=== PATIENT | male | born 1950 | race Caucasian/White ===

== ENCOUNTER 2023-03-06 11:57 | Outpatient (RCR) | payer MEDICARE, MEDICAID, SELFPAY | END 2023-04-26 16:02 | disposition home or self-care (01) | LOC: PT 11:57 | PROVIDERS: PCP Nurse Practitioner; Visit Provider Family Medicine | DX: R26.2 Difficulty in walking, not elsewhere classified (principal) | CPT/HCPCS: 97110; 97112; 97162; 97530 ==

== ENCOUNTER 2024-02-03 14:14 | Outpatient (RCR) | payer MEDICARE, MEDICAID, SELFPAY | END 2024-03-10 16:57 | disposition home or self-care (01) | LOC: PT 14:14 | PROVIDERS: PCP Nurse Practitioner; Visit Provider Nurse Practitioner | DX: R26.2 Difficulty in walking, not elsewhere classified (principal); R26.89 Other abnormalities of gait and mobility; Z99.89 Dependence on other enabling machines and devices | CPT/HCPCS: 97110; 97112; 97162 ==

== ENCOUNTER 2024-03-02 13:28 | Outpatient (OUT) | payer MEDICARE, MEDICAID, SELFPAY | END 2024-03-02 13:29 | disposition home or self-care (01) | LOC: PST 13:29 | PROVIDERS: PCP Nurse Practitioner; Visit Provider Surgery | DX: Z01.818 Encounter for other preprocedural examination (principal); Z12.11 Encounter for screening for malignant neoplasm of colon ==

== ENCOUNTER 2024-03-11 08:44 | Day surgery (SDC) | payer MEDICARE, MEDICAID, SELFPAY ==
--- NOTE | 2024-03-11 | OP_ITS ---
OPERATION DATE: 03/11/2024 PREOPERATIVE DIAGNOSIS: Colorectal screening. POSTOPERATIVE DIAGNOSIS: Poor prep with thick brown liquid and semi-solid stool throughout the colon. PROCEDURE: Colonoscopy to proximal ascending colon. SURGEON: Gordo Mejias M.D. ANESTHESIA: Monitored anesthesia care. ESTIMATED BLOOD LOSS: Zero. INDICATIONS AND CONSENT: Patient is a 73-year-old male with multiple medical problems, presents for colorectal screening. He is on Eliquis but stopped this two days prior. Indications, risks, benefits, alternatives of proceeding with colonoscopy were explained extensively to the patient, including the risks of bleeding, colon perforation or anesthetic complications. All of his questions were answered. Informed consent was obtained. PROCEDURE: Patient brought to the operating room, placed in the left lateral decubitus position. Monitored anesthesia care was provided. Rectal exam was performed which showed no masses or blood. The scope was inserted into the anal canal. Under direct visualization, it was advanced. There was noted to be thick brown liquid stool coating the colon and in pools throughout the colon with some more solid components as well. It was able to be partially irrigated clear. We were able to advance to the ascending colon; however, due to a large amount of the liquid stool, could not adequately visualize to proceed to the cecum. It was close to the cecum. Upon withdrawal of the scope, mucosal surfaces were examined. No large masses or polyps were noted; however, due to the poor prep, certainly smaller polyps or even 6 mm likely would not be detected. There were rare sigmoid diverticula without inflammatory changes or scarring. No significant hemorrhoidal disease. The scope was then withdrawn. Patient tolerated procedure well, was sent to recovery room in good condition. Likely will require repeat colonoscopy, due to the poor prep, within the next several months. CC: ANDREW Feliciano
[2024-03-11 09:04] VITALS: BP 96/65; PULSE 77; TEMP 36.1; O2SAT 99; BMI 30.8
[2024-03-11 09:14] LABS: Glucometer 149 mg/dL (74-106)
[2024-03-11] MEDS: LACTATED RINGER'S SOLUTION 1,000 ML 50 ML IV (09:14)
[2024-03-11 10:24] VITALS: BP 117/66; PULSE 78; TEMP 36.4; O2SAT 96
[2024-03-11 10:54] VITALS: BP 143/60; PULSE 78; O2SAT 99
== END 2024-03-11 10:54 | disposition home or self-care (01) ==
PROVIDERS: PCP Nurse Practitioner; Visit Provider Surgery
PROC: (CPT G0121; principal; 2024-03-11 09:50)
DX: Z12.11 Encounter for screening for malignant neoplasm of colon (principal); I48.91 Unspecified atrial fibrillation; Z79.01 Long term (current) use of anticoagulants; E11.9 Type 2 diabetes mellitus without complications; I10 Essential (primary) hypertension; E78.5 Hyperlipidemia, unspecified; Z79.84 Long term (current) use of oral hypoglycemic drugs; Z87.891 Personal history of nicotine dependence; J44.9 Chronic obstructive pulmonary disease, unspecified; I25.10 Atherosclerotic heart disease of native coronary artery without angina pectoris; I25.2 Old myocardial infarction; Z95.5 Presence of coronary angioplasty implant and graft; M19.90 Unspecified osteoarthritis, unspecified site
CPT/HCPCS: G0121; 36415; 82948; J2371; J2704

== ENCOUNTER 2024-07-02 09:48 | Outpatient (OUT) | payer MEDICARE, MEDICAID, SELFPAY | END 2024-07-02 09:49 | disposition home or self-care (01) | LOC: LAB 09:49 | PROVIDERS: PCP Nurse Practitioner; Visit Provider Urology | DX: N40.1 Benign prostatic hyperplasia with lower urinary tract symptoms (principal) | CPT/HCPCS: 36415; 84153 ==

== ENCOUNTER 2024-07-23 15:23 | Emergency (ER) | payer MEDICARE, MEDICAID, SELFPAY ==
[2024-07-23 15:28] VITALS: BP 151/98; PULSE 88; TEMP 36.3; O2SAT 95; BMI 29.5
[2024-07-23 15:37] VITALS: O2SAT 95
--- NOTE | 2024-07-23 15:55 | CT_ITS ---
The [address] [address] Patient Name: IBETH PAUL MRN: [id number] date: 1950 Sex: M Assigned Patient Location: ER Current Patient Location: Accession/Order Number: [id number] Exam Date: 07/23/2024 16:49 Report Date: 07/23/2024 17:30 At the request of: NADINE KIMBALL Procedure: CT abdomen pelvis w con EXAM: CT Abdomen and Pelvis With Intravenous Contrast CLINICAL INDICATION: constipation TECHNIQUE: Axial computed tomography images of the abdomen and pelvis with intravenous contrast. This CT exam was performed using one or more of the following dose reduction techniques: automated exposure control, adjustment of the mA and/or kV according to patient size, and/or use of iterative reconstruction technique. COMPARISON: No relevant prior studies available. FINDINGS: LUNG BASES: Unremarkable. No mass. No consolidation. MEDIASTINUM: Aortic valve calcification. Small sliding hiatal hernia. ABDOMEN: LIVER: Mild hepatic steatosis. GALLBLADDER AND BILE DUCTS: Unremarkable. No calcified stones. No ductal dilation. PANCREAS: Unremarkable. No mass. No ductal dilation. SPLEEN: Splenic calcifications suggestive of old healed granulomatous disease. ADRENALS: Unremarkable. No mass. KIDNEYS AND URETERS: Unremarkable. No solid mass. No hydronephrosis. STOMACH AND BOWEL: Unremarkable. No mucosal thickening. No bowel obstruction. Diverticulosis. Constipation PELVIS: APPENDIX: Normal appendix. BLADDER: Grossly unremarkable allowing for artifact REPRODUCTIVE: Prostate not well-seen due to hip artifact ABDOMEN and PELVIS: INTRAPERITONEAL SPACE: No free air. No free fluid. BONES/JOINTS: Left hip arthroplasty obscures evaluation. No acute fracture. No dislocation. SOFT TISSUES: Tiny umbilical hernia containing fat. VASCULATURE: Severe vascular calcification without aneurysm. LYMPH NODES: Unremarkable. No enlarged lymph nodes. CT/CT abdomen pelvis w con IMPRESSION: No bowel obstruction. No free air. No free fluid. Constipation. Diverticulosis. No diverticulitis. Correlation with any known colonoscopy results Changes of old healed granulomatous disease. Hepatic steatosis Electronically authenticated by: KIM WILBURN Date: 07/23/2024 17:30
--- OUTSIDE RECORDS SUMMARY | 2024-07-23 16:04 | XMS_ITS | CCD ---
Author Organization [facility] CliniSyil Care Team Providers Care Probate Paralegal Name Role Phone YOUNG, SHMUEL E Unavailable Unavailable YOUNG, SHMUEL E Unavailable Unavailable BURNS, JOAQUÍN Kee Unavailable Unavailable YOUNG, SHMUEL E Unavailable Unavailable YOUNGSHMUEL E Unavailable Unavailable BURNS, JOAQUÍN Kee Unavailable Unavailable BURNS, JOAQUÍN Kee Primary Care Physician DO Scott Lowe Attending Provider Scott Lowe Admitting Unavailable Scott Lowe Attending Unavailable NO FAMILY, PHYSICIAN Primary Care Unavailable BURNS ., DR JOAQUÍN Kee Admitting Unavailable BURNS ., DR JOAQUÍN Kee Attending Unavailable BURNS ., DR JOAQUÍN Kee Primary Care Unavailable BURNS ., DR JOAQUÍN Kee Consulting Unavailable BURNS ., DR JOAQUÍN Kee Admitting Unavailable BURNS ., DR JOAQUÍN Kee Attending Unavailable BURNS ., DR JOAQUÍN Kee Primary Care Unavailable BURNS ., DR JOAQUÍN Kee Consulting Unavailable BURNS ., DR JOAQUÍN Kee Admitting Unavailable BURNS ., DR JOAQUÍN Kee Attending Unavailable BURNS ., DR JOAQUÍN Kee Primary Care Unavailable BURNS ., DR JOAQUÍN Kee Consulting Unavailable BURNS ., DR JOAQUÍN Kee Primary Care Unavailable MARK ANTHONY, DR BERTA Jerome Admitting Unavailcharu HOPSON, DR BERTA Jerome Attending Unavailabl e MARK ANTHONY, DR BERTA Jerome Consulting UnavailDALIA Robles Consulting Unavailable BURNS ., DR JOAQUÍN Kee Primary Care Unavailable CAROLINEERETaqueria, DR OLIVER Angela Admitting Unavailable PRINCE, DR OLIVER Angela Attending Unavailable PRINCE, DR OLIVER Angela Consulting Unavailable JORGE WHEELER Consulting Unavailable NATALIA PEREZ Consulting Unavailable LYNNETTE CISNEROS Consulting Unavailable GALICIA ., DR CHRISTINE Admitting Unavailable GALICIA ., DR CHRISTINE Attending Unavailable BURNS ., DR JOAQUÍN Kee Primary Care Unavailable GALICIA ., DR CHRISTINE Consulting Unavailable Renee Chavez Primary Care Physician [phone] MADHU BYRD Attending Unavailable Burns, Joaquín E Primary Care Provider Unavailabl DENIA Espitia Referring Unavailab JOAQUÍN Kazt Primary Care Unavailable DENIA VILLA Referring Unavailab JOAQUÍN Katz Primary Care Unavailable BURNSJOAQUÍN FLORENTINO Primary Care Unavailable CHRISTOFFDENIA BURTON Referring Unavailab JOAQUÍN Katz Primary Care Unavailable CHRISTDENIA OLSON Referring Unavailab le CHRISTDENIA OLSON Referring Unavailab JOAQUÍN Katz Primary Care Unavailable Scott, Renee Dove Admitting Unavailable Scott, Renee Dove Attending Unavailable NILL, Gordo Meng Attending Unavailable Scott, Renee Dove Attending Unavailable Scott, Renee Dove Attending Unavailable Scott, Renee Dove Admitting Unavailable Scott, Renee Dove Attending Unavailable Scott, Renee Dove Referring Unavailable NILL, Gordo Meng Attending Unavailable Scott, Renee Dove Attending Unavailable Scott, Renee Dove Attending Unavailable Scott, Renee Dove Attending Unavailable Scott, Renee Dove Attending Unavailable Scott, Renee Dove Attending Unavailable GALICIA, Nanci Meng Attending Unavailable Scott, Renee Dove Referring Unavailable ChristoffersonDenia. Attending Unavaila ble NONE, XXXX Referring Unavailable MD Quan Bowling Attending Unavailable Scott, Renee Dove Admitting Unavailable Scott, Renee Dove Attending Unavailable Scott, Renee Dove Attending Unavailable Scott, Renee Dove Admitting Unavailable Scott, Renee Dove Attending Unavailable Scott, Renee L Admitting Unavailable Scott, PIANO BUILDER Renee L Admitting Unavailable Scott, PIANO BUILDER Renee Dove Attending Unavailable Scott, PIANO BUILDER Renee Dove Attending Unavailable Scott, PIANO BUILDER Renee Dove Attending Unavailable Scott, PIANO BUILDER Renee Dove Attending Unavailable Scott, PIANO BUILDER Renee Dove Attending Unavailable Scott, PIANO BUILDER Renee L Admitting Unavailable Scott, PIANO BUILDER Renee L Attending Unavailable Medications Current Medications Medication Drug Class(es) Dates Sig (Normalized) Sig (Original) amiodarone hydrochloride 200 mg oral tablet (4 sources) Antiarrhythmic Start: 02-10-2020 take 1 mg by mouth once daily amiodarone 200 mg Tab mg tab(s), Oral, Daily, Refills(s) 0 Start Date: 02/10/20 Status: Ordered amLODIPine 10 mg oral tablet (7 sources) Dihydropyridine Calcium Channel [place] Start: 12-27-2023 take 1 tablet by mouth once daily amLODIPine 10 mg Tab 10 mg = 1 tab(s), Oral, Daily, Refills(s) 0 Start Date: 12/27/23 Status: Ordered Start: 01-04-2023 take 1 tablet by vear th once daily amLODIPine 10 mg Tab 10 mg = 1 tab(s), Oral, Daily, Refills(s) 0 Start Date: 01/04/23 Status: Ordered apixaban 5 mg oral tablet (15 sources) Factor Xa Inhibitor Start: 03-17-2024 take 1 tablet by mouth twice daily Eliquis 5 mg oral tablet 5 mg = 1 tab(s), Oral, BID, # 180 tab(s), Refills(s) 4, [facility]acy: [id number], 183, cm, 02/04/24 14:23:00 EDT, Height/Length Dosing, 109, kg, 02/04/24 14:23:00 EDT, Weight Dosing Start Date: 03/17/24 Status: Ordered Start: 02-10-2020 End: 02-06-2024 take 1 tablet by mouth twice daily Eliquis 5 mg oral tablet 5 mg = 1 tab(s), Oral, BID, X 90 day(s), # 180 tab(s), Refills(s) 3, Pharmacy: [facility] #[id number], 184.5, cm, 02/11/23 15:18:00 EDT, Height/Length Dosing, 107.3, kg, 02/11/23 15:18:00 EDT, Weight Dosing Start Date: 02/11/23 Stop Date: 02/06/24 Status: Ordered Aspirin (4 sources) Platelet Aggregation Inhibitor, Nonsteroidal Anti-inflammatory Drug Start: 02-10-2020 aspirin Refills(s ) 0 Start Date: 02/10/20 Status: Ordered take 1 tablet by mouth once izzy y aspirin 81 MG tablet Take 81 mg by mouth daily 0 Active bumetanide 1 mg oral tablet (19 sources) Loop Diuretic Start: 02-10-2020 take 1 tablet by mouth twice daily at breakfast bumetanide 1 mg Tab See Instructions, take 1 tablet by mouth twice a day with breakfast and LUNCH, # 180 tab(s), Refills(s) 3, Pharmacy: [facility], 183, cm, 04/30/24 14:19:00 EDT, Height/Length Dosing, 115.2, kg, 04/30/24 14:19:00 EDT, Weight Dosing Start Date: 06/05/24 Status: Ordered Start: 02-10-2020 take 1 mg by mouth at breakfas t bumetanide See Instructions, 1 mg Oral with breakfast and lunch, Refills(s) 0 Start Date: 02/10/20 Status: Ordered Start: 02-10-2020 bumetanide Lavinia ly, Refills(s) 0 Start Date: 02/10/20 Status: Ordered dapagliflozin 5 mg oral tablet (15 sources) Sodium-Glucose Cotransporter 2 Inhibitor Start: 01-06-2024 take 1 tablet by mouth once daily Farxiga 5 mg oral tablet See Instructions, take 1 tablet by mouth once daily, # 90 EA, Refills(s) 3, Pharmacy: [facility], 183, cm, 04/30/24 14:19:00 EDT, Height/Length Dosing, 115.2, kg, 04/30/24 14:19:00 EDT, Weight Dosing Start Date: 06/05/24 Status: Ordered Start: 01-04-2023 take 1 tablet by vera once daily dapagliflozin 5 mg oral tablet 5 mg = 1 tab(s), Oral, Daily, Refills(s) 0 Start Date: 01/04/23 Status: Ordered gabapentin 100 mg oral capsule (15 sources) Anti-epileptic Agent Start: 06-05-2024 take 1 capsule by mouth three times daily gabapentin 100 mg Cap See Instructions, take 1 capsule by mouth three times a day, # 90 caplet(s), Refills(s) 5, Pharmacy: [facility], 183, cm, 04/30/24 14:19:00 EDT, Height/Length Dosing, 115.2, kg, 04/30/24 14:19:00 EDT, Weight Dosing Start Date: 06/05/24 Status: Ordered Start: 01-06-2024 take 1 capsule by mo [facility] three times daily gabapentin 100 mg Cap See Instructions, take 1 capsule by mouth three times a day, # 90 caplet(s), Refills(s) 5, [facility]acy: [facility] #[id number], 183, cm, 01/06/24 14:38:00 EDT, Height/Length Dosing, 113.5, kg, 01/06/24 14:38:00 EDT, Weight Dosing Start Date: 01/06/24 Status: Ordered Start: 08-21-2023 take 1 capsule by mo ut three times daily gabapentin 100 mg Cap 100 mg = 1 cap(s), Oral, TID, # 90 cap(s), Refills(s) 0, Pharmacy: [facility] #[id number], 188, cm, 07/05/23 11:18:00 EDT, Height/Length Dosing, 116, kg, 07/05/23 11:18:00 EDT, Weight Dosing Start Date: 08/21/23 Status: Ordered Start: 02-10-2020 take 1 mg by mouth t hree times daily gabapentin 100 mg Cap mg cap(s), Oral, TID, Refills(s) 0 Start Date: 02/10/20 Status: Ordered take 1 capsule by [facility] once daily gabapentin (NEURONTIN) 100 MG capsule Take 100 mg by mouth daily 0 Active Handicap Placard (11 sources) Start: 02-12-[address] Handicap Placard, See Instructions, 1 EA, 0, Greater than 5 years, Supply Start Date: 02/12/23 Status: Ordered 3 ml insulin glargine 100 unt/ml pen injector (18 sources) Insulin Analog Start: 06-05-2024 Basaglar KwikP en 100 units/mL subcutaneous solution See Instructions, inject 20 units subcutaneously twice a day, # 15 mL, Refills(s) 11, Pharmacy: [facility], 183, cm, 04/30/24 14:19:00 EDT, Height/Length Dosing, 115.2, kg, 04/30/24 14:19:00 EDT, Weight Dosing Start Date: 06/05/24 Status: Ordered Start: 01-06-2024 Basaglar KwikP en 100 units/mL subcutaneous solution See Instructions, inject 20 units subcutaneously twice a day, # 15 mL, Refills(s) 11, [id number], 183, cm, 01/06/24 14:38:00 EDT, Height/Length Dosing, 113.5, kg, 01/06/24 14:38:00 EDT, Weight Dosing Start Date: 01/06/24 Status: Ordered Start: 08-21-2023 Basaglar KwikP en 100 units/mL subcutaneous solution 20 unit(s), SubCutaneous, BID, # 15 mL, Refills(s) 0, [facility][id number], 188, cm, 07/05/23 11:18:00 EDT, Height/Length Dosing, 116, kg, 07/05/23 11:18:00 EDT, Weight Dosing Start Date: 08/21/23 Status: Ordered Start: 01-04-2023 Basaglar KwikP en 100 units/mL subcutaneous solution 20 unit(s), SubCutaneous, BID, Refills(s) 0 Start Date: 01/04/23 Status: Ordered insulin glargine (LANTUS) 100 UNIT/ML injection vial Inject 30 Units into the skin daily 0 Active lisinopril 2.5 mg oral tablet (6 sources) Angiotensin Converting Enzyme Inhibitor Start: 06-05-2024 take 1 tablet by mouth once daily lisinopril 2.5 mg Tab 2.5 mg = 1 tab(s), Oral, Daily, # 30 tab(s), Refills(s) 6, Pharmacy: [facility], 183, cm, 04/30/24 14:19:00 EDT, Height/Length Dosing, 115.2, kg, 04/30/24 14:19:00 EDT, Weight Dosing Start Date: 06/05/24 Status: Ordered Start: 12-27-2023 take 1 tablet by vera th once daily lisinopril 2.5 mg Tab 2.5 mg = 1 tab(s), Oral, Daily, # 30 tab(s), Refills(s) 6, [facility] #[id number], 188, cm, 12/27/23 8:52:00 EDT, Height/Length Dosing, 115.1, kg, 12/27/23 8:52:00 EDT, Weight Dosing Start Date: 12/27/23 Status: Ordered Losartan (1 source) Angiotensin 2 Receptor [place] Start: 02-10-2020 losartan Oral, Daily, Refills(s) 0 Start Date: 02/10/20 Status: Ordered metFORMIN hydrochloride 500 mg oral tablet (11 sources) Biguanide Start: 06-08-2024 End: 06-08-2025 take 1 tablet by mouth three times daily metformin 500 mg Tab 500 mg = 1 tab(s), Oral, TID, # 270 tab(s), Refills(s) 1, Pharmacy: [facility], 183, cm, 04/30/24 14:19:00 EDT, Height/Length Dosing, 115.2, kg, 04/30/24 14:19:00 EDT, Weight Dosing Start Date: 06/08/24 Stop Date: 06/08/25 Status: Ordered Start: 04-27-2024 take 1 tablet by vera three times daily metformin 500 mg Tab 500 mg = 1 tab(s), Oral, TID, # 270 tab(s), Refills(s) 0, Pharmacy: [facility], 183, cm, 04/02/24 14:16:00 EDT, Height/Length Dosing, 114.2, kg, 04/02/24 14:16:00 EDT, Weight Dosing Start Date: 04/27/24 Status: Ordered Start: 02-11-2023 take 1 tablet by [facility] three times daily metformin 500 mg Tab 500 mg = 1 tab(s), Oral, TID, Refills(s) 0 Start Date: 02/11/23 Status: Ordered 24 hr metoprolol succinate 50 mg extended release oral tablet (15 sources) beta-Adrenergic [place] Start: 02-10-2020 End: 05-31-2025 take 1 tablet by mouth once daily metoprolol succinate 50 mg ER Tab 50 mg = 1 tab(s), Oral, Daily, X 90 day(s), # 90 tab(s), Refills(s) 3, Pharmacy: [facility], 183, cm, 04/30/24 14:19:00 EDT, Height/Length Dosing, 115.2, kg, 04/30/24 14:19:00 EDT, Weight Dosing Start Date: 06/05/24 Stop Date: 05/31/25 Status: Ordered polyethylene glycol 3350 27423 mg powder for oral solution (2 sources) Osmotic Laxative Start: 04-30-2024 take 17 g by mouth once daily Miralax 3350 17 gram packet 17 gm, Oral, Daily, # 255 gm, Refills(s) 1, Pharmacy: [facility], 183, cm, 04/30/24 14:19:00 EDT, Height/Length Dosing, 115.2, kg, 04/30/24 14:19:00 EDT, Weight Dosing Start Date: 04/30/24 Status: Ordered Completed/Discontinued Medications Medication Drug Class(es) Dates Sig (Normalized) Sig (Original) atorvastatin 40 mg oral tablet (15 sources) HMG-CoA Reductase Inhibitor Start: 06-05-2024 take 1 tablet by mouth once daily at bedtime atorvastatin 40 mg Tab 40 mg = 1 tab(s), Oral, Daily, take 1 tablet by mouth at bedtime, # 90 tab(s), Refills(s) 3, Pharmacy: [facility], 183, cm, 04/30/24 14:19:00 EDT, Height/Length Dosing, 115.2, kg, 04/30/24 14:19:00 EDT, Weight Dosing Start Date: 06/05/24 Status: Ordered Start: 01-06-2024 take 1 tablet by vera th once daily at bedtime atorvastatin 40 mg Tab 40 mg = 1 tab(s), Oral, Daily, take 1 tablet by mouth at bedtime, # 90 tab(s), Refills(s) 3, [facility]acy: [facility] #[id number], 183, cm, 01/06/24 14:38:00 EDT, Height/Length Dosing, 113.5, kg, 01/06/24 14:38:00 EDT, Weight Dosing Start Date: 01/06/24 Status: Ordered Start: 02-10-2020 take 40 mg by mouth once daily atorvastatin 40 mg, Oral, Daily, Refills(s) 0 Start Date: 02/10/20 Status: Ordered Start: 02-10-2020 atorvastatin O ral, Daily, Refills(s) 0 Start Date: 02/10/20 Status: Ordered blood glucose monitor (6 sources) Start: 05-14-2024 blood glucose monitor blood glucose monitor, See Instructions, 1 EA, 0, check Blood sugar 4 times a day, [facility], Supply, 183, cm, 04/30/24 14:19:00 EDT, Height/Length Dosing, 115.2, kg, 04/30/24 14:19:00 EDT, Weight Dosing Start Date: 05/14/24 Status: Ordered Start: 03-04-2024 blood glucose monitor blood glucose monitor, See Instructions, 1 EA, 0, check Blood sugar 4 times a day, [facility] #[id number], Supply, 183, cm, 02/04/24 14:23:00 EDT, Height/Length Dosing, 109, kg, 02/04/24 14:23:00 EDT, Weight Dosing Start Date: 03/04/24 Status: Ordered Start: 01-06-2024 blood glucose monitor blood glucose monitor, See Instructions, 1 EA, 0, check Blood sugar 4 times a day, [facility], Supply, 183, cm, 01/06/24 14:38:00 EDT, Height/Length Dosing, 113.5, kg, 01/06/24 14:38:00 EDT, Weight Dosing Start Date: 01/06/24 Status: Ordered Start: 10-18-2023 blood glucose monitor blood glucose monitor, See Instructions, 1 EA, 0, check Blood sugar 4 times a day, [facility] #[id number], Supply, 188, cm, 10/14/23 13:27:00 EST, Height/Length Dosing, 114.7, kg, 10/14/23 13:27:00 EST, Weight Dosing Start Date: 10/18/23 Status: Ordered DM shoes (8 sources) Start: 08-06-2023 DM shoes DM sh oes, See Instructions, 1 EA, 0, DM shoes, Supply Start Date: 08/06/23 Status: Ordered Misc DME Prescription (8 sources) Start: 06-05-2024 Misc DME Presc ription Misc DME Prescription, See Instructions, 200 pen needle(s), 1, BD pen needles to use bid for insulin injections Dx E11.8, [facility], Supply, 183, cm, 04/30/24 14:19:00 EDT, Height/Length Dosing, 115.2, kg, 04/30/24 14:19:00 EDT, Weight Dosing Start Date: 06/05/24 Status: Ordered Start: 09-10-2023 Misc DME Presc ription Misc DME Prescription, See Instructions, 200 pen needle(s), 1, BD pen needles to use bid for insulin injections Dx E11.8, [facility] #[id number], Supply, 188, cm, 07/05/23 11:18:00 EDT, Height/Length Dosing, 116, kg, 07/05/23 11:18:00 EDT, Weight Dosing Start Date: 09/10/23 Status: Ordered regadenoson (LEXISCAN) injec tion 0.4 mg (1 source) Start: 12-12-2023 End: 12-12-2023 regadenoson (LEXISCAN) injection 0.4 mg 5 ml sodium chloride 9 mg/ml injection (1 source) Start: 12-12-2023 End: 12-12-2023 sodium chloride flush 0.9 % injection 5-40 mL Problems Active Problems Problem Classification Problem Date Documented Da te Episodic/Chronic Acute myocardial infarction (12 sources) Acute myocardial infarction 02-10-2020 Chronic Administrative/social admission (8 sources) Reduced mobility 01-08-2024 Episodic Calculus of urinary tract (12 sources) History of calculus of kidney 02-10-2020 Episodic Cardiac dysrhythmias (13 sources) Atrial fibrillation; Translations: [Unspecified atrial fibrillation] Onset: 12-27-2023 02-10-2020 Chronic Cataract (2 sources) Cataract; Translations: [AGE RELATED NUCLEAR CATARACT] Onset: 08-12-2017 Chronic obstructive pulmonary disease and bronchiectasis (13 sources) Chronic obstructive lung disease; Translations: [Chronic obstructive pulmonary disease, unspecified] Onset: 01-24-2022 02-10-2020 Chronic Congestive heart failure; nonhypertensive (1 source) Heart failure, unspecified; Translations: [HEART FAILURE UNSPECIFIED] Onset: 01-24-2022 Chronic Coronary atherosclerosis and other heart disease (1 source) Atherosclerotic heart disease of [place] coronary artery without angina pectoris; Translations: [Atherosclerotic heart disease of [place] coronary artery without angina pectoris] Onset: 12-12-2023 Chronic Diabetes mellitus with complications (8 sources) Type 1 diabetes mellitus with unspecified complications; Translations: [Type 1 diabetes mellitus with diabetic polyneuropathy] Onset: 07-24-2022 Chronic Diabetes mellitus without complication (9 sources) Type 2 diabetes mellitus without complications; Translations: [Type 1 diabetes mellitus] Onset: 01-24-2022 10-14-2023 Chronic Diabetes mellitus without complication (20 sources) Glycosuria; Translations: [Hyperglycemia] 02-12-2020 Episodic Disorders of lipid metabolism (12 sources) Hyperlipidemia; Translations: [Hyperlipidemia, unspecified] Onset: 12-27-2023 02-11-2023 Chronic Essential hypertension (20 sources) Hypertensive disorder; Translations: [Essential (primary) hypertension] Onset: 05-03-2022 02-10-2020 Chronic Genitourinary symptoms and ill-defined conditions (20 sources) Nocturia; Translations: [Nocturia] Onset: 04-06-2022 Episodic Hyperplasia of prostate (20 sources) Benign prostatic hypertrophy with outflow obstruction; Translations: [Benign prostatic hyperplasia with lower urinary tract symptoms] Onset: 03-26-2022 Chronic Other aftercare (1 source) Long-term current use of anticoagulant; Translations: [snf (current) use of anticoagulants] Onset: 04-06-2022 Episodic Other diseases of kidney and ureters (12 sources) Hydronephrosis 02-10-2020 Episodic Other gastrointestinal disorders (8 sources) Altered bowel function 10-14-2023 Episodic Other gastrointestinal disorders (2 sources) Constipation 04-30-2024 Episodic Other nervous system disorders (4 sources) Difficulty walking 01-09-2024 Chronic Other nervous system disorders (2 sources) Neuropathy of lower limb 04-02-2024 Chronic Other nutritional; endocrine; and metabolic disorders (1 source) Obesity, unspecified; Translations: [OBESITY UNSPECIFIED] Onset: 01-24-2022 Chronic Other nutritional; endocrine; and metabolic disorders (1 source) Body mass index (BMI) 30.0-30.9, adult; Translations: [BODY MASS INDEX BMI 30.0-30.9 ADULT] Onset: 01-24-2022 Chronic Other nutritional; endocrine; and metabolic disorders (1 source) Obese class I; Translations: [Body mass index (BMI) 32.0-32.9, adult] Onset: 12-27-2023 Chronic Other nutritional; endocrine; and metabolic disorders (4 sources) Body mass index 30+ - obesity 12-30-2023 Chronic Other nutritional; endocrine; and metabolic disorders (3 sources) Obesity caused by energy imbalance 02-04-2024 Chronic Other screening for suspected conditions (not mental disorders or infectious disease) (3 sources) Encounter for screening for malignant neoplasm of prostate; Translations: [Screening for malignant neoplasm done] Onset: 07-05-2023 Episodic Isabel-; endo-; and myocarditis; cardiomyopathy (except that caused by tuberculosis or sexually transmitted disease) (5 sources) Dilated cardiomyopathy; Translations: [Cardiomyopathy] Onset: 05-03-2022 Chronic Retinal detachments; defects; vascular occlusion; and retinopathy (12 sources) Age related macular degeneration 02-10-2020 Chronic Screening and history of mental health and substance abuse codes (1 source) H/O: Disorder; Translations: [Personal history of nicotine dependence] Onset: 12-27-2023 Episodic Substance-related disorders (1 source) Tobacco dependence, continuous 07-03-2024 Chronic Unclassified (12 sources) Drug therapy finding 04-06-2022 Unclassified (1 source) Unspecified open wound of left ear, initial encounter; Translations: [Unspecified open wound of left ear, initial encounter] Onset: 06-25-2022 Unclassified (16 sources) Patient encounter status 07-05-2023 Unclassified (4 sources) Able to mobilize using mobility aids 01-09-2024 Past or Other Problems Problem Classification Problem Date Documented Da te Episodic/Chronic Cataract (6 sources) Nuclear sclerotic cataract; Translations: [Age-related nuclear cataract, left eye] Onset: 08-11-2017 Resolved: 08-21-2017 08-12-2017 Chronic Other aftercare (1 source) Other detention (current) drug therapy; Translations: [[facility]IV[facility] CURRENT DRUG THERAPY] Onset: 01-24-2022 Episodic Other aftercare (1 source) snf (current) use of aspirin; Translations: [SENIOR LIVING CURRENT USE OF ASPIRIN] Onset: 01-24-2022 Episodic Other aftercare (1 source) snf (current) use of anticoagulants; Translations: [SENIOR LIVING CURRNT USE ANTICOAGULANTS] Onset: 01-24-2022 Episodic Other connective tissue disease (4 sources) Pain in left foot; Translations: [PAIN IN LEFT FOOT] Onset: 01-23-2022 Episodic Other connective tissue disease (1 source) Pain in right foot; Translations: [PAIN IN RIGHT FOOT] Onset: 01-24-2022 Episodic Other male genital disorders (1 source) Disorder of prostate, unspecified; Translations: [DISORDER OF PROSTATE UNSPECIFIED] Onset: 05-03-2022 Episodic Unclassified (12 sources) Chronic emphysema (morphologic abnormality) 02-10-2020 Results Test Name Value Interpretation Reference Range Facil ity Ambulatory Visit Summaryon 1 09-05-2023 Ambulatory Visit Summary Ambulatory Visit Summary BRAXTON VILLASENOR :1950 Visit Date:07/06/2024 Ambulatory Visit Instructions Your Diagnosis BPH with urinary obstruction Screening PSA (prostate specific antigen) Your Care Team Attending Physician - Nanci GALICIA MD Primary Care Physician - Renee Renae This Is Your Medications List Contact prescribing physician if questions or concerns Misc Prescription (DM shoes) Misc Prescription (Handicap Placard) Misc Prescription (Misc DME Prescription) Misc Prescription (blood glucose monitor) Misc Prescription (glucose test strips) Misc Prescription (lancets) apixaban (Eliquis 5 mg oral tablet) atorvastatin (atorvastatin 40 mg Tab) bumetanide bumetanide (bumetanide 1 mg Tab) dapagliflozin (Farxiga 5 mg oral tablet) dapagliflozin (Farxiga 5 mg oral tablet) gabapentin (gabapentin 100 mg Cap) insulin glargine (Basaglar KwikPen 100 units/mL subcutaneous solution) insulin glargine (Basaglar KwikPen 100 units/mL subcutaneous solution) lisinopril (lisinopril 2.5 mg Tab) metformin (metformin 500 mg Tab) metoprolol (metoprolol succinate 50 mg ER Tab) polyethylene glycol 3350 (Miralax 3350 17 gram packet) Procedures Performed Excision of multiple scrotal sebaceous cysts (09/19/2010), Cardiac catheterisation, combined right and left heart, Cataract, Hip replacement. Discharge Vitals Heart Rate (Peripheral) 89 Blood Pressure 100/70 Height 188 cm Height 74 in Weight 110 kg Weight 242 lb BMI 31.12 What to do next Scheduled Follow-Up Appointments 2023 11:30 AM EST With: Where: [address] [address]- Saturday 1:00 PM EST With: Renee Renae Where: [address] [address]- Saturday 1:00 PM EDT With: Where: [address] [address]- You Need to Schedule the Following Appointments Follow Up with GRAYSON CRAIG, OWEN Smith When: Where: [facility] [address] [place] [id number]- Medications What How Much When Why Instructions Unchanged apixaban (Eliquis 5 mg oral tablet) 1 Tablets By Mouth 2 times a day Contact prescribing physician if questions or concerns Unchanged atorvastatin (atorvastatin 40 mg Tab) 1 Tablets By Mouth Every day take 1 tablet by mouth at bedtime Contact prescribing physician if questions or concerns Unchanged bumetanide See instructions 1 mg Oral with breakfast and lunch Contact prescribing physician if questions or concerns Unchanged bumetanide (bumetanide 1 mg Tab) See instructions take 1 tablet by mouth twice a day with breakfast and LUNCH Contact prescribing physician if questions or concerns Unchanged dapagliflozin (Farxiga 5 mg oral tablet) 1 Tablets By Mouth Every day take 1 tablet by mouth once daily Contact prescribing physician if questions or concerns Unchanged dapagliflozin (Farxiga 5 mg oral tablet) See instructions take 1 tablet by mouth once daily Contact prescribing physician if questions or concerns Unchanged gabapentin (gabapentin 100 mg Cap) See instructions take 1 capsule by mouth three times a day Contact prescribing physician if questions or concerns Unchanged insulin glargine (Basaglar KwikPen 100 units/ mL subcutaneous solution) 20 Units Subcutaneous 2 times a day Contact prescribing physician if questions or concerns Unchanged insulin glargine (Basaglar KwikPen 100 units/ mL subcutaneous solution) See instructions inject 20 units subcutaneously twice a day Contact prescribing physician if questions or concerns Unchanged lisinopril (lisinopril 2.5 mg Tab) 1 Tablets By Mouth Every day Contact prescribing physician if questions or concerns Unchanged metformin (metformin 500 mg Tab) 1 Tablets By Mouth 3 times a day Contact prescribing physician if questions or concerns Unchanged metoprolol (metoprolol succinate 50 mg ER Tab) 1 Tablets By Mouth Every day Duration: 90 Days Contact prescribing physician if questions or concerns Unchanged Misc Prescription (blood glucose monitor) See instructions check Blood sugar 4 times a day Contact prescribing physician if questions or concerns Unchanged Misc Prescription (DM shoes) See instructions DM shoes Contact prescribing physician if questions or concerns Unchanged Misc Prescription (glucose test strips) See instructions check blood sugar 4 times per day E11.8 Contact prescribing physician if questions or concerns Unchanged Misc Prescription (Handicap Placard) See instructions Hypertension Hyperlipidemia Impaired ambulation BMI 31.0-31.9,adult Non-smoker Greater than 5 years Contact prescribing physician if questions or concerns Unchanged Misc Prescription (lancets) See instructions Annual visit for g (more content not included)... Normal [facility] 07-06-20 [facility] Case Information Case Priority: None Programs: -- Referral Source: [employer] Referral Reason: Disease management Case Type: Chronic Care Management Risk Score: -- Case Status: New (July 06, 2024) Date Assigned: July 06, 2024 Assigned By: Sancho Walters Date Enrolled: -- Assigned Primary Personnel: Sancho Walters Assigned Secondary Personnel: -- Case Physician: Renee Renae Problems Ongoing Able to mobilize using mobility aids Anticoagulated Atrial fibrillation BMI 32.0-32.9,adult BPH with urinary obstruction Cardiomyopathy Change in bowel function Colon cancer screening Constipation Decreased mobility Difficulty in walking Encounter for diabetic foot exam Glucosuria Hyperlipidemia Hypertension Limited mobility Neuropathy of foot Nocturia Obesity due to excess calories Screening for malignant neoplasm of colon Screening PSA (prostate specific antigen) Type 1 diabetes mellitus Urinary frequency Urinary urgency Historical Acute myocardial infarction Age related macular degeneration BPH - benign prostatic hyperplasia Chronic emphysema COPD - Chronic obstructive pulmonary disease History of kidney stone Hydronephrosis Hyperglycemia Hypertension Procedure/Surgical History Excision of multiple scrotal sebaceous cysts (09/19/2010), Cardiac catheterisation, combined right and left heart, Cataract, Hip replacement. Home Medications atorvastatin 40 mg Tab, 40 mg= 1 tab(s), Oral, Daily, 3 refills Basaglar KwikPen 100 units/mL subcutaneous solution, 20 unit(s), SubCutaneous, BID Basaglar KwikPen 100 units/mL subcutaneous solution, See Instructions, 11 refills blood glucose monitor, See Instructions bumetanide, See Instructions bumetanide 1 mg Tab, See Instructions, 3 refills DM shoes, See Instructions Eliquis 5 mg oral tablet, 5 mg= 1 tab(s), Oral, BID, 4 refills Farxiga 5 mg oral tablet, See Instructions, 3 refills Farxiga 5 mg oral tablet, 5 mg= 1 tab(s), Oral, Daily gabapentin 100 mg Cap, See Instructions, 5 refills glucose test strips, See Instructions, 11 refills Handicap Placard, See Instructions lancets, See Instructions, 11 refills lisinopril 2.5 mg Tab, 2.5 mg= 1 tab(s), Oral, Daily, 6 refills metformin 500 mg Tab, 500 mg= 1 tab(s), Oral, TID, 1 refills metoprolol succinate 50 mg ER Tab, 50 mg= 1 tab(s), Oral, Daily, 3 refills Miralax 3350 17 gram packet, 17 gm, Oral, Daily, 1 refills Misc DME Prescription, See Instructions, 1 refills Allergies No Known Allergies Social History Alcohol - Denies Alcohol Use, 12/30/2023 Never., 07/06/2024 Substance Abuse - Denies Substance Abuse, 12/30/2023 Never., 07/06/2024 Tobacco Former smoker, quit more than 30 days ago Tobacco Use:., 07/06/2024 Family History Family history is negative Screenings and Assessments 07/06/24 14:45:00 Result Name Value Comment CCM Program Enrollment Agreed to share health information w-other care team members CCM Written Consent Written consent obtained CCM Verbal Consent By Self 07/06/24 13:00:00 Result Name Value Comment HIPPA Verified Type of Contact Telephone Information Given by Self CM Preferred Spoken Language Burundian CM Preferred Written Language Burundian Preferred Communication Mode Verbal Ability to Read/Write Not able to read, Not able to write Licensing Manager Called No Cell Best Time to Visit or Contact 1-5 pm Best Day to Visit or Contact No preference Appointment Reminders Phone, Other secured messaging Learning Style Pref Patient Demonstration, Verbal explanation Learning Style Pref Parent/Guardian Demonstration, Verbal explanation Teaching Method Demonstration, Explanation Barriers to Learning Literacy Response to Current Year Incorrect Cognitive Deficit Unsure Response to Current Month Correct Response to Current Time Correct Count Backward 20 to 1 1 Error State Months in Reverse Order 1 Error Repeat Memory Phrase Correct Lives In Apartment Number in Household 1 Support System Family member(s) Primary Jewel Hole Gauger of Home Medication Self Medication Adherence Method Caregiver/Family fills pillbox Current DME at Home Yes Currently Receiving Skilled Services No Skilled Service Needs Anticipated Yes Home Barriers None Employment Status Retired Financial Issues None Sources of Income Social Security Patient Account Services Referral No Pt/CG Understand Health Plan Benefits Yes Benefits Adequate for the (more content not included)... Normal [facility] Population Health Population Health Problems Ongoing Able to mobilize using mobility aids Anticoagulated Atrial fibrillation BMI 32.0-32.9,adult BPH with urinary obstruction Cardiomyopathy Change in bowel function Colon cancer screening Constipation Decreased mobility Difficulty in walking Encounter for diabetic foot exam Glucosuria Hyperlipidemia Hypertension Limited mobility Neuropathy of foot Nocturia Obesity due to excess calories Screening for malignant neoplasm of colon Screening PSA (prostate specific antigen) Type 1 diabetes mellitus Urinary frequency Urinary urgency Historical Acute myocardial infarction Age related macular degeneration BPH - benign prostatic hyperplasia Chronic emphysema COPD - Chronic obstructive pulmonary disease History of kidney stone Hydronephrosis Hyperglycemia Hypertension Procedure/Surgical History Excision of multiple scrotal sebaceous cysts (09/19/2010), Cardiac catheterisation, combined right and left heart, Cataract, Hip replacement. Medication List atorvastatin 40 mg Tab, 40 mg= 1 tab(s), Oral, Daily, 3 refills Basaglar KwikPen 100 units/mL subcutaneous solution, 20 unit(s), SubCutaneous, BID Basaglar KwikPen 100 units/mL subcutaneous solution, See Instructions, 11 refills blood glucose monitor, See Instructions bumetanide, See Instructions bumetanide 1 mg Tab, See Instructions, 3 refills DM shoes, See Instructions Eliquis 5 mg oral tablet, 5 mg= 1 tab(s), Oral, BID, 4 refills Farxiga 5 mg oral tablet, See Instructions, 3 refills Farxiga 5 mg oral tablet, 5 mg= 1 tab(s), Oral, Daily gabapentin 100 mg Cap, See Instructions, 5 refills glucose test strips, See Instructions, 11 refills Handicap Placard, See Instructions lancets, See Instructions, 11 refills lisinopril 2.5 mg Tab, 2.5 mg= 1 tab(s), Oral, Daily, 6 refills metformin 500 mg Tab, 500 mg= 1 tab(s), Oral, TID, 1 refills metoprolol succinate 50 mg ER Tab, 50 mg= 1 tab(s), Oral, Daily, 3 refills Miralax 3350 17 gram packet, 17 gm, Oral, Daily, 1 refills Misc DME Prescription, See Instructions, 1 refills Allergies No Known Allergies Goals and Interventions Care Plan Goal: Daily Activities Are Not Prohibited Start Date: 2023 Target: - - Status: - - Barriers: - - Comments: - - Intervention Frequency Status 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 Discuss Physical Health Concerns with Provider - - Not done - - Plan Action for Physical Health Needs - - Not done - - Goal: Prevent complications related to diabetes Start Date: 2023 Target: - - Status: Not met Barriers: - - Comments: - - Intervention Frequency Status 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 Pt could not provide urine sample today. Previous dx of BPH with urinary obstruction, nocturia, urinary frequency and anticoagulated. PSA: 02/22/21 - 0.51 03/26/22 - 0.49 02/12/23 - 0.4 07/01/24 - 0.4 Dysuria: denies Incomplete bladder emptying: denies Hematuria: denies Frequency: every hour Urgency: denies Nocturia: yes, multiple times - says unsure exactly how many times Stream: good stream Leaking:denies Post void dripping: denies Wearing pads/ Depends: denies Urge incontinence:denies Stress incontinence:denies Incontinence without Sensory Awareness:denies Abdominal pain:denies Flank pain:denies Sexual complaints: denies History of Present Illness Tests reviewed: UA, PSA I have reviewed the previous health record information and history for this patient from Dr. Galicia. I have reviewed and verified the staff HPI to be accurate for this encounter. Review of Systems PHQ Score Initial Depression Screen Score: 2 SCORE ROS - Provider Constitutional: denies weight loss, denies hot flashes. Eyes: denies eye problems. Gastrointestinal: denies nausea, denies vomiting. Cardiovascular: denies chest pain or angina. Integumentary: no dryness Musculoskeletal: denies musculoskeletal symptoms. ENMT: denies otolaryngeal symptoms. Respiratory: no shortness of breath. Heme/Lymph: denies easy bleeding tendency, denies easy bruising tendency. Psychiatric: no confusion, no anxiety. Genitourinary: See HPI. Physical Exam Vitals & Measurements HR: 89(Peripheral) BP: 100/70 HT: 74 in HT: 188 cm WT: 110 kg WT: 242 lb BMI: 31.12 General Appearance: alert, no distress, well nourished, well developed male. Assessment/Plan 1. BPH with urinary obstruction (N40.1: Benign prostatic hyperplasia with lower urinary tract symptoms) Pt unable to provide urine sample today. Did not take water pill yet this morning so he wouldn't have to void on the way here. IPSS not completed. Not taking any prostate or bladder meds. No difficulties with urination. Denies gross hematuria, burning, UTI since prior OV. Frequency due to water pill. 2. Screening PSA (prostate specific antigen) (Z12.5: Encounter for screening for malignant neoplasm of prostate) PSA: 02/22/21 - 0.51 03/26/22 - 0.49 02/12/23 - 0.40 07/01/24 - 0.40 PSA stable. Discussed having PCP monitor PSA annually so pt can follow with this office prn. Pt is amenable. Follow up PRN. Pt understands and agrees with plan. -Cont annual PSA monitoring with PCP. Follow-up With When Contact Information GRAYSON CRAIG, Nanci Meng, [facility] [address] , [place] [id number]- Additional Instructions: PRN Patient Education Benign Prostatic Hyperplasia ITanika, personally scribed for Dr. Galicia on 07/06/2024 11:45:57. . Documentation recorded by the scribe, Tanika Granados, accurately reflects the services(s) I performed and decisions made by me. Authenticated by Dr. Galicia on 07/06/2024 11:53:59. Problem List/Past Medical History Ongoing Able to mobilize using mobility aids Anticoagulated Atrial fibrillation BMI 32.0-32.9,adult BPH with urinary obstruction Cardiomyopathy Change in bowel function Colon cancer screening Constipation Decreased mobility Difficulty in walking Encounter for diabetic foot exam Glucosuria Hyperlipidemia Hypertension Limited mobility Neuropathy of foot Nocturia Obesity due to excess calories Screening for malignant neoplasm of colon Screening PSA (prostate specific antigen) Type 1 diabetes mellitus Urinary frequency Urinary urgency Historical Acute myocardial infarction Age related macular degeneration BPH - benign prostatic hyperplasia Chronic emphysema COPD - Chronic obstructive pulmonary disease History of kidney stone Hydronephrosis Hyperglycemia Hypertension Procedure/Surgical History Excision of multiple scrotal sebaceous cysts (09/19/2010), Cardiac catheterisation, combined right and left heart, Cataract, Hip replacement. Medications atorvastatin 40 mg Tab, 40 mg= 1 tab(s), Oral, Daily, 3 refills Basaglar KwikPen 100 units/mL subcutaneous solution, 20 unit(s), SubCutaneous, BID Basaglar KwikPen 100 units/mL subcutaneous solution, See Instructions, 11 refills blood glucose monitor, See Instructions bumetanide, See Instructions bumetanide 1 mg Tab, See Instructions, 3 refills DM shoes, See Instructions Eliquis 5 mg oral tablet, 5 mg= 1 tab(s), Oral, BID, 4 refills Farxiga 5 mg oral tablet, See Instructions, 3 refills Farxiga 5 mg oral tablet, 5 mg= 1 tab(s), Oral, Daily gabapentin 100 mg Cap, See Instructions, 5 refills glucose test strips, See Instructions, 11 refills Handicap Placard, See Instructions lancets, See Instructions, 11 refills lisin (more content not included)... Normal [facility] Comment on above: Result Comment: Elec tronically Signed By: Nanci GALICIA MD\.br\Date and Time Signed: 07/06/24 11:54 EST\.br\Electronically Co-Signed By: Tanika Granados\.br\Date and Time Co-Signed: 07/06/24 11:46 EST\.br\Electronically Co-Signed By: Tanika Granados\.br\Date and Time Co-Signed: 07/06/24 11:46 EST Family Medicine Office/Clini c Noteon 07-03-2024 Family Medicine Office/Clinic Note Family Medicine Office/Clinic Note [facility] Staff Braxton is a 73 year old male presenting with having bowel issues Onset: Started months ago Explained how to use MiraLAX- he would take it one day and doesn't take it for a couple days.. he states this makes him sick to his stomach and can't get off the toilet Sister was wondering if they could get HH to help with him to help with meds, when they go over there he always has pills laying around and not sure what he is taking Cologuard has been ordered but not done yet History of Present Illness pt presents today to discuss worsening bowel issues Review of Systems PHQ Score Initial Depression Screen Score: 0 SCORE Physical Exam Vitals & Measurements T: 35.9 ???C(Oral) HR: 78(Peripheral) RR: 18 BP: 132/88 SpO2: 99% HT: 72 in HT: 183.0 cm WT: 116.7 kg WT: 256.74 lb BMI: 34.85 General: alert, no acute distress ENMT: oral mucosa moist, no pharyngeal erythema or exudate Cardiovascular: regular rate and rhythm, normal peripheral perfusion Respiratory: Lungs CTA, respirations non labored Extremities: no deformity, no trauma Neurological: oriented x 4, LOC appropriate for age, CN II-XII intact, motor strength equal & normal bilaterally, speech normal Assessment/Plan 1. Change in bowel function (R19.8: Other specified symptoms and signs involving the digestive system and abdomen) pt states he will get backed up with stool for a few days, then he will have diarrhea for a couple days straight. he attempted to have colonoscopy months ago but was not prepped enough. is requesting referral to Terry STARK for further work up. pt is not taking miralax anymore. pt gets very tearful and says I'm afraid to even leave my house because I can't make it to the bathroom. His sister is very concerned and asks if there is any way they could get help with him at home. Sancho [facility] nurse was informed and she went into room to discuss what she can do to help. All questions answered. RTC 1 month. will need to check HGBA1C then Ordered: [facility] [place] Ambulatory Referral 2. Former smoker (Z87.891: Personal history of nicotine dependence) continue not smoking Ordered: Body Mass Index (BMI) documented 3008F Current tobacco non-user 1036F Depression Screening Negative 3352F [facility] [place] Ambulatory Referral Influenza immunization status assessed 1030F Most recent diastolic blood pressure 80-89 mm Hg 3079F Patient screen for fall risk: no falls in last year or 1 fall with no injury in last year 1101F Systolic BP 130-139 mm Hg (Most Recent) 3075F 3. BMI 34.0-34.9,adult (Z68.34: Body mass index [BMI] 34.0-34.9, adult) BMI education Ordered: Body Mass Index (BMI) documented 3008F Current tobacco non-user 1036F Depression Screening Negative 3352F [facility] [place] Ambulatory Referral Influenza immunization status assessed 1030F Most recent diastolic blood pressure 80-89 mm Hg 3079F Patient screen for fall risk: no falls in last year or 1 fall with no injury in last year 1101F Systolic BP 130-139 mm Hg (Most Recent) 3075F 4. Exogenous obesity (E66.09: Other obesity due to excess calories) Ordered: Body Mass Index (BMI) documented 3008F Current tobacco non-user 1036F Depression Screening Negative 3352F [facility] External Ambulatory Referral Influenza immunization status assessed 1030F Most recent diastolic blood pressure 80-89 mm Hg 3079F Patient screen for fall risk: no falls in last year or 1 fall with no injury in last year 1101F Systolic BP 130-139 mm Hg (Most Recent) 3075F Follow-up No qualifying data available Problem List/Past Medical History Ongoing Able to mobilize using mobility aids Anticoagulated Atrial fibrillation BMI 32.0-32.9,adult BPH with urinary obstruction Cardiomyopathy Change in bowel function Colon cancer screening Constipation Decreased mobility Difficulty in walking Encounter for diabetic foot exam Glucosuria Hyperlipidemia Hypertension Limited mobility Neuropathy of foot Nocturia Obesity due to excess calories Screening for malignant neoplasm of colon Screening PSA (prostate specific antigen) Type 1 diabetes mellitus Urinary frequency Urinary urgency Historical Acute myocardial infarction Age related macular degeneration BPH - benign prostatic hyperplasia Chronic emphysema COPD - Chronic obstructive pulmonary disease History of kidney stone Hydronephrosis Hyperglycemia Hypertension Procedure/Surgical History Excision of multiple scrotal sebaceous cysts (09/19/2010), Cardiac catheterisation, combined right and left heart, Cataract, Hip replacement. Medications atorvastatin 40 mg Tab, 40 mg= 1 tab(s), Oral, Daily, 3 refills Basaglar KwikPen 100 units/mL subcutaneous solution, 20 unit(s), SubCutaneous, BID Basaglar KwikPen 100 units/mL subcutaneous solution, See Instructions, 11 refills blood glucose monitor, See Instructions bumetanide, See Instructions bumetanide 1 mg Tab, Se (more content not included)... Normal [facility] Comment on above: Result Comment: Elec tronically Signed By: Renee Renae\.br\Date and Time Signed: 07/03/24 15:13 EDT Reminderson 05-05-2024 Reminders Reminders From: Renee Renae To: [facility] - Clinical; Sent: 05/05/2024 09:48:59 EDT Show up: 05/05/2024 09:48:00 EDT Subject: Ambulatory Reminder Due Date/Time: 05/06/2024 09:47:00 EDT HGBA1C went from 5.9 to 7.2. Was he able to get his glucose monitor ? If not, I will try to send to pharmacy again. He needs to start watching sugar and carb intake. Results: Date Result Name Ind Value Ref Range 04/30/2024 14:46 Hgb A1C % ((H)) 7.2 % ( - <=5.9) From: Pat Kay LPN ([facility] - Clinical) To: Renee Renae; Sent: 05/05/2024 11:28:07 EDT Show up: 05/05/2024 11:25:00 EDT Subject: RE: Ambulatory Reminder Spoke with Rica and no he's not gotten his glucose monitor, was sent couple months ago to [facility] and they are now closed, so [facility] [place]. His sister says that Pro insists he knows when his sugars up and she says it's obvious he doesn't, she will discuss his results and instructions with him. Normal [facility] CHEMISTRYOrdered By: Art nicole on 04-30-2024 HbA1c (Bld) [Mass fraction] 7.2 % High <=5.9% [facility] ChemAutoSS Family Medicine Office/Clini c Noteon 04-30-2024 Family Medicine Office/Clinic Note Family Medicine Office/Clinic Note HPI Staff Pt presents today due to constipation Colonoscopy a month ago (Incomplete) OTC- last night, and is no longer constipated History of Present Illness pt presents today c/o consitpation Review of Systems PHQ Score Initial Depression Screen Score: 0 SCORE Physical Exam Vitals & Measurements T: 37.4 ?C(Temporal Artery) HR: 76(Peripheral) RR: 18 BP: 110/78 SpO2: 95% HT: 72 in HT: 183.0 cm WT: 115.2 kg WT: 253.44 lb BMI: 34.4 General: alert, no acute distress ENMT: oral mucosa moist, no pharyngeal erythema or exudate Cardiovascular: regular rate and rhythm, normal peripheral perfusion Respiratory: Lungs CTA, respirations non labored Extremities: no deformity, no trauma Neurological: oriented x 4, LOC appropriate for age, CN II-XII intact, motor strength equal & normal bilaterally, speech normal Assessment/Plan 1. Type 1 diabetes mellitus (E10.9: Type 1 diabetes mellitus without complications) will check HGBA1C today. pt has still not been able to get a glucose monitor. his daughter will buy one from [employer] or [employer]. Ordered: polyethylene glycol 3350, 17 gm, Oral, Daily, # 255 gm, Refills(s) 1, Pharmacy: [id number], 183, cm, 04/30/24 14:19:00 EDT, Height/Length Dosing, 115.2, kg, 04/30/24 14:19:00 EDT, Weight Dosing HgbA1c 2. Colon cancer screening (Z12.11: Encounter for screening for malignant neoplasm of colon) will order cologuard. pt had colonoscopy recently but was not completely cleaned out so they were not able to visualize everything. surgeon suggested he do cologuard and if it is abnormal they will re schedule colonoscopy. Ordered: polyethylene glycol 3350, 17 gm, Oral, Daily, # 255 gm, Refills(s) 1, Pharmacy: [id number], 183, cm, 04/30/24 14:19:00 EDT, Height/Length Dosing, 115.2, kg, 04/30/24 14:19:00 EDT, Weight Dosing HgbA1c 3. Constipation (K59.00: Constipation, unspecified) miralax ordered 4. Former smoker (Z87.891: Personal history of nicotine dependence) continue not smoking Ordered: polyethylene glycol 3350, 17 gm, Oral, Daily, # 255 gm, Refills(s) 1, Pharmacy: [id number], 183, cm, 04/30/24 14:19:00 EDT, Height/Length Dosing, 115.2, kg, 04/30/24 14:19:00 EDT, Weight Dosing HgbA1c 5. BMI 34.0-34.9,adult (Z68.34: Body mass index [BMI] 34.0-34.9, adult) BMI education Ordered: polyethylene glycol 3350, 17 gm, Oral, Daily, # 255 gm, Refills(s) 1, Pharmacy: [facility], 183, cm, 04/30/24 14:19:00 EDT, Height/Length Dosing, 115.2, kg, 04/30/24 14:19:00 EDT, Weight Dosing HgbA1c 6. Class 1 obesity due to excess calories in adult (E66.09: Other obesity due to excess calories) see above Ordered: polyethylene glycol 3350, 17 gm, Oral, Daily, # 255 gm, Refills(s) 1, Pharmacy: [facility], 183, cm, 04/30/24 14:19:00 EDT, Height/Length Dosing, 115.2, kg, 04/30/24 14:19:00 EDT, Weight Dosing HgbA1c Follow-up No qualifying data available Problem List/Past Medical History Ongoing Able to mobilize using mobility aids Anticoagulated Atrial fibrillation BMI 32.0-32.9,adult BPH with urinary obstruction Cardiomyopathy Change in bowel function Colon cancer screening Constipation Decreased mobility Difficulty in walking Encounter for diabetic foot exam Glucosuria Hyperlipidemia Hypertension Limited mobility Neuropathy of foot Nocturia Obesity due to excess calories Screening for malignant neoplasm of colon Screening PSA (prostate specific antigen) Type 1 diabetes mellitus Urinary frequency Urinary urgency Historical Acute myocardial infarction Age related macular degeneration BPH - benign prostatic hyperplasia Chronic emphysema COPD - Chronic obstructive pulmonary disease History of kidney stone Hydronephrosis Hyperglycemia Hypertension Procedure/Surgical History Excision of multiple scrotal sebaceous cysts (09/19/2010), Cardiac catheterisation, combined right and left heart, Cataract, Hip replacement. Medications atorvastatin 40 mg Tab, 40 mg= 1 tab(s), Oral, Daily, 3 refills Basaglar KwikPen 100 units/mL subcutaneous solution, 20 unit(s), SubCutaneous, BID Basaglar KwikPen 100 units/mL subcutaneous solution, See Instructions, 11 refills blood glucose monitor, See Instructions bumetanide, See Instructions bumetanide 1 mg Tab, See Instructions, 3 refills DM shoes, See Instructions Eliquis 5 mg oral tablet, 5 mg= 1 tab(s), Oral, BID, 4 refills Farxiga 5 mg oral tablet, 5 mg= 1 tab(s), Oral, Daily Farxiga 5 mg oral tablet, See Instructions, 3 refills gabapentin 100 mg Cap, See Instructions, 5 refills glucose test strips, See Instructions, 11 refills Handicap Placard, See Instructions lancets, See Instructions, 11 refills lisinopril 2.5 mg Tab, 2.5 mg= 1 tab(s), Oral, Daily, 6 refills metformin 500 mg Tab, 500 mg= 1 tab(s), Oral, TID metoprolol 50 mg ER Tab, 50 mg= 1 tab(s), Ora (more content not included)... Normal [facility] Comment on above: Result Comment: Elec tronically Signed By: Renee Renae\.j carlos\Date and Time Signed: 04/30/24 14:46 EDT [id number] 04-30-2024 HbA1c (Bld) [Mass fraction] 7.2 % High <=5.9 [facility] Comment on above: Performed By: #### [id number] #### [facility] [address] [place] [address] Ambulatory Visit Summaryon 0 04-02-2024 Ambulatory Visit Summary Ambulatory Visit Summary BRAXTON VILLASENOR :1950 Visit Date:04/02/2024 Ambulatory Visit Instructions Your Diagnosis Type 1 diabetes mellitus Neuropathy of foot Encounter for diabetic foot exam BMI 32.0-32.9,adult Former smoker Your Care Team Attending Physician - Renee Renae Primary Care Physician - Renee Renae This Is Your Medications List Misc Prescription (DM shoes) Misc Prescription (Handicap Placard) Misc Prescription (Misc DME Prescription) Misc Prescription (blood glucose monitor) Misc Prescription (glucose test strips) Misc Prescription (lancets) apixaban (Eliquis 5 mg oral tablet) atorvastatin (atorvastatin 40 mg Tab) bumetanide bumetanide (bumetanide 1 mg Tab) dapagliflozin (Farxiga 5 mg oral tablet) dapagliflozin (Farxiga 5 mg oral tablet) gabapentin (gabapentin 100 mg Cap) insulin glargine (Basaglar KwikPen 100 units/mL subcutaneous solution) insulin glargine (Basaglar KwikPen 100 units/mL subcutaneous solution) lisinopril (lisinopril 2.5 mg Tab) metformin (metformin 500 mg Tab) metoprolol (metoprolol 50 mg ER Tab) Procedures Performed Excision of multiple scrotal sebaceous cysts (09/19/2010), Cardiac catheterisation, combined right and left heart, Cataract, Hip replacement. Discharge Vitals Temperature (Temporal Artery) 36.3 ?C Heart Rate (Peripheral) 68 Respiratory Rate 20 Blood Pressure 128/82 Height 183.0 cm Height 72 in Weight 114.2 kg Weight 251.24 lb BMI 34.1 What to do next Scheduled Follow-Up Appointments Saturday 10:30 AM EST With: GRAYSON CRAIG, Nanci Meng Where: [facility] [address] [place] [address]- Saturday 1:00 PM EDT With: Where: [facility] [address] [address]- Medications What How Much When Why Instructions Unchanged apixaban (Eliquis 5 mg oral tablet) 1 Tablets By Mouth 2 times a day Unchanged atorvastatin (atorvastatin 40 mg Tab) 1 Tablets By Mouth Every day take 1 tablet by mouth at bedtime Unchanged bumetanide See instructions 1 mg Oral with breakfast and lunch Unchanged bumetanide (bumetanide 1 mg Tab) See instructions take 1 tablet by mouth twice a day with breakfast and LUNCH Unchanged dapagliflozin (Farxiga 5 mg oral tablet) 1 Tablets By Mouth Every day take 1 tablet by mouth once daily Unchanged dapagliflozin (Farxiga 5 mg oral tablet) See instructions take 1 tablet by mouth once daily Unchanged gabapentin (gabapentin 100 mg Cap) See instructions take 1 capsule by mouth three times a day Unchanged insulin glargine (Basaglar KwikPen 100 units/ mL subcutaneous solution) 20 Units Subcutaneous 2 times a day Unchanged insulin glargine (Basaglar KwikPen 100 units/ mL subcutaneous solution) See instructions inject 20 units subcutaneously twice a day Unchanged lisinopril (lisinopril 2.5 mg Tab) 1 Tablets By Mouth Every day Unchanged metformin (metformin 500 mg Tab) 1 Tablets By Mouth 3 times a day Unchanged metoprolol (metoprolol 50 mg ER Tab) 1 Tablets By Mouth Every day Duration: 90 Days Unchanged Misc Prescription (blood glucose monitor) See instructions check Blood sugar 4 times a day Unchanged Misc Prescription (DM shoes) See instructions DM shoes Unchanged Misc Prescription (glucose test strips) See instructions check blood sugar 4 times per day Unchanged Misc Prescription (Handicap Placard) See instructions Hypertension Hyperlipidemia Impaired ambulation BMI 31.0-31.9,adult Non-smoker Greater than 5 years Unchanged Misc Prescription (lancets) See instructions Annual visit for general adult medical examination with abnormal findings Type 1 diabetes mellitus BPH with urinary obstruction Anticoagulated Hyperlipidemia Hypertension Obesity due to excess calories Colon cancer screening Lung cancer screening declined by patient Screening declined by patient Screening for abdominal aortic aneurysm check blood sugar 4 times per day Unchanged Misc Prescription (Misc DME Prescription) See instructions BD pen needles to use bid for insulin injections Dx E11.8 Allergies No Known Allergies Problems Ongoing - Any problem that you are currently receiving treatment for. Able to mobilize using mobility aids Anticoagulated Atrial fibrillation BMI 32.0-32.9,adult BPH with urinary obstruction Cardiomyopathy Change in bowel function Decreased mobility Difficulty in walking Encounter for diabetic foot exam Glucosuria Hyperlipidemia Hypertension Limited mobility Neuropathy of foot Nocturia Obesity due to excess calories Screening for malignant neoplasm of colon Screening PSA (prostate specific antigen) Type 1 diabetes mellitus Urinary frequency Urinary urgency Historical - Any problem that you are no longer receiving treatment for. Acute myocardial (more content not included)... Normal [facility] Medicine Office/Clini c Noteon 04-02-2024 Family Medicine Office/Clinic Note Family Medicine Office/Clinic Note HPI Staff Braxton is a 73 year old male presenting for face to face and paperwork for diabetic shoes Do you have any of the following symptoms? Foot Exam: will need today for shoes Eye Exam: Last year Last A1C: Hgb A1C %: 5.9 % (01/15/24 12:58:00) Statin: atorvastatin 40mg History of Present Illness pt presents today to follow up on diabetes and for diabetic foot exam Review of Systems PHQ Score Initial Depression Screen Score: 0 SCORE Physical Exam Vitals & Measurements T: 36.3 ?C(Temporal Artery) HR: 68(Peripheral) RR: 20 BP: 128/82 SpO2: 94% HT: 72 in HT: 183.0 cm WT: 114.2 kg WT: 251.24 lb BMI: 34.1 General: alert, no acute distress ENMT: oral mucosa moist, no pharyngeal erythema or exudate Cardiovascular: regular rate and rhythm, normal peripheral perfusion Respiratory: Lungs CTA, respirations non labored Extremities: no deformity, no trauma Neurological: oriented x 4, LOC appropriate for age, CN II-XII intact, motor strength equal & normal bilaterally, speech normal decreased or no sensation in areas of both feet and 2 toes on left foot and one toe on right. callouses on both heels Assessment/Plan 1. Type 1 diabetes mellitus (E10.9: Type 1 diabetes mellitus without complications) last HGBA1C was 5.9. managing well. will check again in April. 2. Neuropathy of foot (G57.90: Unspecified mononeuropathy of unspecified lower limb) decreased sensation in multiple areas on both feet and toes 3. Encounter for diabetic foot exam (E11.9: Type 2 diabetes mellitus without complications) foot exam complete. all forms complete for diabetic shoes. pt would benefit from diabetic shoes. 4. BMI 32.0-32.9,adult (Z68.32: Body mass index [BMI] 32.0-32.9, adult) BMI education given 5. Former smoker (Z87.891: Personal history of nicotine dependence) continue not smoking Follow-up No qualifying data available Problem List/Past Medical History Ongoing Able to mobilize using mobility aids Anticoagulated Atrial fibrillation BMI 32.0-32.9,adult BPH with urinary obstruction Cardiomyopathy Change in bowel function Decreased mobility Difficulty in walking Encounter for diabetic foot exam Glucosuria Hyperlipidemia Hypertension Limited mobility Neuropathy of foot Nocturia Obesity due to excess calories Screening for malignant neoplasm of colon Screening PSA (prostate specific antigen) Type 1 diabetes mellitus Urinary frequency Urinary urgency Historical Acute myocardial infarction Age related macular degeneration BPH - benign prostatic hyperplasia Chronic emphysema COPD - Chronic obstructive pulmonary disease History of kidney stone Hydronephrosis Hyperglycemia Hypertension Procedure/Surgical History Excision of multiple scrotal sebaceous cysts (09/19/2010), Cardiac catheterisation, combined right and left heart, Cataract, Hip replacement. Medications atorvastatin 40 mg Tab, 40 mg= 1 tab(s), Oral, Daily, 3 refills Basaglar KwikPen 100 units/mL subcutaneous solution, 20 unit(s), SubCutaneous, BID Basaglar KwikPen 100 units/mL subcutaneous solution, See Instructions, 11 refills blood glucose monitor, See Instructions bumetanide, See Instructions bumetanide 1 mg Tab, See Instructions, 3 refills DM shoes, See Instructions Eliquis 5 mg oral tablet, 5 mg= 1 tab(s), Oral, BID, 4 refills Farxiga 5 mg oral tablet, 5 mg= 1 tab(s), Oral, Daily Farxiga 5 mg oral tablet, See Instructions, 3 refills gabapentin 100 mg Cap, See Instructions, 5 refills glucose test strips, See Instructions, 11 refills Handicap Placard, See Instructions lancets, See Instructions, 11 refills lisinopril 2.5 mg Tab, 2.5 mg= 1 tab(s), Oral, Daily, 6 refills metformin 500 mg Tab, 500 mg= 1 tab(s), Oral, TID metoprolol 50 mg ER Tab, 50 mg= 1 tab(s), Oral, Daily, 3 refills Misc DME Prescription, See Instructions, 1 refills Allergies No Known Allergies Social History Alcohol - Denies Alcohol Use, 12/30/2023 Substance Abuse - Denies Substance Abuse, 12/30/2023 Tobacco Former smoker, quit more than 30 days ago Tobacco Use:. Never Smokeless Tobacco Use:. Cigarettes, 2 per day. 46 year(s). Total pack years: 92. Started age 15.0 Years. Stopped age 63 Years. Household tobacco concerns: No., 04/02/2024 Family History Family history is negative Immunizations Vaccine Date Status influenza virus vaccine, inactivated 07/12/2022 Recorded SARS-CoV-2 (COVID-19) [id number] 07/12/2022 Recorded SARS-CoV-2 (COVID-19) mRNA BNT-162b2 vax 12/24/2020 Recorded SARS-CoV-2 (COVID-19) mRNA BNT-162b2 vax 12/03/2020 Recorded SARS-CoV-2 (COVID-19) mRNA-1273 vaccine 10/2020 Recorded influenza virus vaccine, inactivated 07/07/2019 Recorded Normal [facility] Comment on above: Result Comment: Elec tronically Signed By: Renee Renae\.br\Date and Time Signed: 04/02/24 14:42 EDT Consent for Procedure/Surger yon 02-06-2024 Consent for Procedure/Surgery [id number]. 00TIFF Normal [facility] Ambulatory Visit Summaryon 0 02-04-2024 Ambulatory Visit Summary BRAXTON VILLASENOR :1950 Visit Date:02/04/2024 Ambulatory Visit Instructions Your Diagnosis Screening for malignant neoplasm of colon Your Care Team Attending Physician - Gordo CHAPA MD Primary Care Physician - Renee Renae Referring Physician - Renee Renae This Is Your Medications List Contact prescribing physician if questions or concerns Misc Prescription (DM shoes) Misc Prescription (Handicap Placard) Misc Prescription (Misc DME Prescription) Misc Prescription (blood glucose monitor) Misc Prescription (glucose test strips) Misc Prescription (lancets) apixaban (Eliquis 5 mg oral tablet) atorvastatin (atorvastatin 40 mg Tab) bumetanide bumetanide (bumetanide 1 mg Tab) dapagliflozin (Farxiga 5 mg oral tablet) dapagliflozin (Farxiga 5 mg oral tablet) gabapentin (gabapentin 100 mg Cap) insulin glargine (Basaglar KwikPen 100 units/mL subcutaneous solution) insulin glargine (Basaglar KwikPen 100 units/mL subcutaneous solution) lisinopril (lisinopril 2.5 mg Tab) metformin (metformin 500 mg Tab) metoprolol (metoprolol 50 mg ER Tab) Procedures Performed Excision of multiple scrotal sebaceous cysts (09/19/2010), Cardiac catheterisation, combined right and left heart, Cataract, Hip replacement. Discharge Vitals Heart Rate (Peripheral) 60 Respiratory Rate 16 Blood Pressure 114/60 Height 183 cm Height 72 in Weight 109 kg Weight 239.8 lb BMI 32.55 What to do next Scheduled Follow-Up Appointments Saturday 10:30 AM EST With: GRAYSON CRAIG, Nanci Meng Where: [facility] [id number]- \.br\ Medications\.br\ What How Much When Why Instructions\.br \ Unchanged apixaban (Eliquis 5 mg oral tablet) 1 Tablets By Mouth 2 times a day Duration: 90 Days Contact prescribing physician if questions or concerns \.br\ Unchanged atorvastatin (atorvastatin 40 mg Tab) 1 Tablets By Mouth Every day take 1 tablet by mouth at bedtime Contact prescribing physician if questions or concerns \.br\ Unchanged bumetanide See instructions 1 mg Oral with breakfast and lunch Contact prescribing physician if questions or concerns \.br\ Unchanged bumetanide (bumetanide 1 mg Tab) See instructions take 1 tablet by mouth twice a day with breakfast and LUNCH Contact prescribing physician if questions or concerns \.br\ Unchanged dapagliflozin (Farxiga 5 mg oral tablet) 1 Tablets By Mouth Every day take 1 tablet by mouth once daily Contact prescribing physician if questions or concerns \.br\ Unchanged dapagliflozin (Farxiga 5 mg oral tablet) See instructions take 1 tablet by mouth once daily Contact prescribing physician if questions or concerns \.br\ Unchanged gabapentin (gabapentin 100 mg Cap) See instructions take 1 capsule by mouth three times a day Contact prescribing physician if questions or concerns \.br\ Unchanged insulin glargine (Basaglar KwikPen 100 units/ mL subcutaneous solution) 20 Units Subcutaneous 2 times a day Contact prescribing physician if questions or concerns \.br\ Unchanged insulin glargine (Basaglar KwikPen 100 units/ mL subcutaneous solution) See instructions inject 20 units subcutaneously twice a day Contact prescribing physician if questions or concerns \.br\ Unchanged lisinopril (lisinopril 2.5 mg Tab) 1 Tablets By Mouth Every day Contact prescribing physician if questions or concerns \.br\ Unchanged metformin (metformin 500 mg Tab) 1 Tablets By Mouth 3 times a day Contact prescribing physician if questions or concerns \.br\ Unchanged metoprolol (metoprolol 50 mg ER Tab) 1 Tablets By Mouth Every day Duration: 90 Days Contact prescribing physician if questions or concerns \.br\ Unchanged Misc Prescription (blood glucose monitor) See instructions check Blood sugar 4 times a day Contact prescribing physician if questions or concerns \.br\ Unchanged Misc Prescription (DM shoes) See instructions DM shoes Contact prescribing physician if questions or concerns \.br\ Unchanged Misc Prescription (glucose test strips) See instructions check blood sugar 4 times per day Contact prescribing physician if questions or concerns \.br\ Unchanged Misc Prescription (Handicap Placard) See instructions Hypertension Hyperlipidemia Impaired ambulation BMI 31.0-31.9,adult Non-smoker Greater than 5 years Contact prescribing physician if questions or concerns \.br\ Unchanged Misc Prescription (lancets) See instructions Annual visit for general adult medical examination with abnormal findings Type 1 diabetes mellitus BPH with urinary obstruction Anticoagulated Hyperlipidemia Hypertension Obesity due to excess calories Colon cancer screening Lung cancer screening declined by patient Screening declined by patient Screening for abdominal aortic aneurysm check blood sugar 4 times per day Contact prescribing physician if questions or concerns \.br\ Unchanged Misc Prescription (Misc DME Prescription) See instructions BD pen needles to use bid for insulin injections Dx E11.8 Contact prescribing physician if questions or concerns \.br\ Allergies\.br\ No Known Allergies\.br\ Problems\.br\ Ongoing - Any problem that you are currently receiving treatment for.\.br\ Able to mobilize using mobility aids\.br\ Anticoagulated\. br\ Atrial fibrillation\.br \ BMI 32.0-32.9,adult\ .br\ BPH with urinary obstruction\.br\ Cardiomyopathy\. br\ Change in bowel function\.br\ Decreased mobility\.br\ Difficulty in walking\.br\ Glucosuria\.br\ Hyperlipidemia\. br\ Hypertension\.br \ Limited mobility\.br\ Nocturia\.br\ Obesity due to excess calories\.br\ Screening for malignant neoplasm of colon\.br\ Screening PSA (prostate specific antigen)\.br\ Type 1 diabetes mellitus\.br\ Urinary frequency\.br\ Urinary urgency\.br\ Historical - Any problem that you are no longer receiving treatment for.\.br\ Acute myocardial infarction\.br\ Age related macular degeneration\.br \ BPH - benign prostatic hyperplasia\.br\ Chronic emphysema\.br\ COPD - Chronic obstructive pulmonary disease\.br\ History of kidney stone\.br\ Hydronephrosis\. br\ Hyperglycemia\.b r\ Hypertension\.br \ Patient Survey\.br\ You may receive a survey via text or e-mail asking about your office visit. Please share your experience with us by completing your survey. We appreciate your feedback and thank you for choosing us for your care.\.br\ \.br\ [facility] Plan of Care - PT/OT/Speecho n 02-04-2024 Plan of Care - PT/OT/Speech [id number]. 00TIFF Normal [facility] Reminderson 01-17-2024 Reminders - From: Renee Renae To: [facility] - Clinical; Sent: 01/16/2024 09:45:44 EDT Show up: 01/16/2024 09:46:00 EDT Subject: Ambulatory Reminder Due Date/Time: 01/17/2024 09:45:00 EDT HGBA1C is 5.9 this is fantastic! Results: Date Result Name Value Ref Range 01/15/2024 12:58 Hgb A1C % 5.9 % ( - <=5.9) Attempted to call patient. No answer. Mailbox is full. Unable to leave message. Patient informed and voiced understanding. Normal [facility] CHEMISTRYOrdered By: SYSTEM SYSTEM on 01-15-2024 Albumin [Mass/Vol] 4.3 g/dL Normal 3.3 - 5.0 gm/dL R emisol Chem Albumin/Globulin [Mass ratio] 1.7 {ratio} Normal 1.1 - 2.2 Remisol Chem ALP [Catalytic activity/Vol] 54 [iU]/d Normal 21 - 98 Int._Unit/L Remisol Chem ALT No additional P-5'-P [Catalytic activity/Vol] 13 [iU]/d Normal 6 - 46 Int._Unit/L Remisol Chem Anion gap [Moles/Vol] 12 mmol/L Normal 6 - 16 mEq/L Remisol Chem AST [Catalytic activity/Vol] 15 [iU]/d Normal 5 - 43 Int._Unit/L Remisol Chem Bilirubin [Mass/Vol] 1.0 mg/dL Normal 0.0 - 1.1 mg/dL Remisol Chem Calcium [Mass/Vol] 8.6 mg/dL Low 8.9 - 11.1 mg/dL Remisol Chem Chloride [Moles/Vol] 108 mmol/L Normal 101 - 111 mmol/ L Remisol Chem CO2 [Moles/Vol] 26 mmol/L Normal 21 - 31 mmol/L Remis ol Chem Creatinine [Mass/Vol] 0.9 mg/dL Normal 0.5 - 1.3 mg/dL Remisol Chem eGFR 91 mL/min/1.73 m2 Normal >=59mL/min /1.73 m2 Remisol Chem Globulin (S) [Mass/Vol] 2.5 g/dL Normal 1.4 - 4.0 gm/dL Remisol Chem Glucose [Mass/Vol] 102 mg/dL Normal 55 - 199 mg/dL Re misol Chem Potassium [Moles/Vol] 4.5 mmol/L Normal 3.5 - 5.3 mmol/L Remisol Chem Protein [Mass/Vol] 6.8 g/dL Normal 6.0 - 7.8 gm/dL R emisol Chem Sodium [Moles/Vol] 141 mmol/L Normal 135 - 145 mmol/L Remisol Chem Urea nitrogen [Mass/Vol] 23 mg/dL High 5 - 21 mg/dL Remisol Chem Urea nitrogen/Creatinine [Mass ratio] 26 mg/mg High 10 - 20 Remisol Chem CHEMISTRYOrdered By: Kristen Siddiqui on 01-15-2024 HbA1c (Bld) [Mass fraction] 5.9 % Normal <=5.9% [facility] ChemAutoSS CMPon 01-15-2024 Albumin [Mass/Vol] 4.3 g/dL Normal 3.3-5.0 [facility] Comment on above: Performed By: #### 2 [id number] #### [facility] [address] [place] [address] Albumin/Globulin (S) [Mass conc ratio] 1.7 Normal 1.1-2.2 [facility] Comment on above: Performed By: #### 2 [id number] #### [facility] [address] [place] [address] ALP [Catalytic activity/Vol] 54 Int._Unit/L Normal 21-98 [facility] Comment on above: Performed By: #### 2 [id number] #### [facility] [address] [place] [address] ALT No additional P-5'-P [Catalytic activity/Vol] 13 Int._Unit/L Normal 6-46 [facility] Comment on above: Performed By: #### 2 [id number] #### [facility] [address] [place] [address] Anion gap [Moles/Vol] 12 mmol/L Normal 6-16 [facility] Comment on above: Performed By: #### 2 [id number] #### [facility] [address] [place] [address] AST [Catalytic activity/Vol] 15 Int._Unit/L Normal 5-43 [facility] Comment on above: Performed By: #### 2 [id number] #### [facility] [address] [place] [address] Bilirubin [Mass/Vol] 1.0 mg/dL Normal 0.0-1.1 [facility] Comment on above: Performed By: #### 2 [id number] #### [facility] [address] [place] [address] Calcium [Mass/Vol] 8.6 mg/dL Low 8.9-11.1 [facility] Comment on above: Performed By: #### 2 [id number] #### [facility] [address] [place] [address] Chloride [Moles/Vol] 108 mmol/L Normal 101-111 [facility] Comment on above: Performed By: #### 2 [id number] #### [facility] [address] [place] [address] CO2 [Moles/Vol] 26 mmol/L Normal 21-31 [facility] Comment on above: Performed By: #### 2 [id number] #### [facility] [address] [place] [address] Creatinine [Mass/Vol] 0.9 mg/dL Normal 0.5-1.3 [facility] Comment on above: Performed By: #### 2 [id number] #### [facility] [address] [place] [address] Globulin (S) [Mass/Vol] 2.5 g/dL Normal 1.4-4.0 [facility] Comment on above: Performed By: #### 2 [id number] #### [facility] [address] [place] [address] Glucose [Mass/Vol] 102 mg/dL Normal 55-199 [facility] Comment on above: Performed By: #### 2 [id number] #### [facility] [address] [place] [address] Potassium [Moles/Vol] 4.5 mmol/L Normal 3.5-5.3 [facility] Comment on above: Performed By: #### 2 [id number] #### [facility] [address] [place] [address] Protein [Mass/Vol] 6.8 g/dL Normal 6.0-7.8 [facility] Comment on above: Performed By: #### [id number] #### [facility] [address] [place] [address] Sodium [Moles/Vol] 141 mmol/L Normal 135-145 [facility] Comment on above: Performed By: #### [id number] #### [facility] [address] [place] [address] Urea nitrogen [Mass/Vol] 23 mg/dL High 5-21 [facility] Comment on above: Performed By: #### [id number] #### [facility] [address] [place] [address] Urea nitrogen/Creatinine [Mass ratio] 26 No Units High 10-20 [facility] Comment on above: Performed By: #### 2 [id number] #### [facility] [address] [place] [address] [id number] 01-15-2024 HbA1c (Bld) [Mass fraction] 5.9 % Normal <=5.9 [facility] Comment on above: Performed By: #### [id number] #### [facility] [address] [place] [address] Nurse Consultation Noteon Nurse Consultation Note Reason for Visit Here for lab draw Assessment/Plan Diabetes mellitus type 1 (E10.9: Type 1 diabetes mellitus without complications) Medications atorvastatin 40 mg Tab, 40 mg= 1 tab(s), Oral, Daily, 3 refills Basaglar KwikPen 100 units/mL subcutaneous solution, 20 unit(s), SubCutaneous, BID Basaglar KwikPen 100 units/mL subcutaneous solution, See Instructions, 11 refills blood glucose monitor, See Instructions bumetanide, See Instructions, Not taking bumetanide 1 mg Tab, See Instructions, 3 refills DM shoes, See Instructions Eliquis 5 mg oral tablet, 5 mg= 1 tab(s), Oral, BID, 3 refills Farxiga 5 mg oral tablet, 5 mg= 1 tab(s), Oral, Daily, Not taking: need refill Farxiga 5 mg oral tablet, See Instructions, 3 refills gabapentin 100 mg Cap, See Instructions, 5 refills glucose test strips, See Instructions, 2 refills Handicap Placard, See Instructions lancets, See Instructions, 3 refills lisinopril 2.5 mg Tab, 2.5 mg= 1 tab(s), Oral, Daily, 6 refills metformin 500 mg Tab, 500 mg= 1 tab(s), Oral, TID metoprolol 50 mg ER Tab, 50 mg= 1 tab(s), Oral, Daily, 3 refills Misc DME Prescription, See Instructions, 1 refills Allergies No Known Allergies Immunizations Vaccine Date Status influenza virus vaccine, inactivated 07/12/2022 Recorded SARS-CoV-2 (COVID-19) [id number] 07/12/2022 Recorded SARS-CoV-2 (COVID-19) mRNA BNT-162b2 vax 12/24/2020 Recorded SARS-CoV-2 (COVID-19) mRNA BNT-162b2 vax 12/03/2020 Recorded SARS-CoV-2 (COVID-19) mRNA-[id number] vaccine 10/2020 Recorded influenza virus vaccine, inactivated 07/07/2019 Recorded Normal [facility] eGFRon 01-15-2024 eGFR 91 mL/min/1.73 m2 Normal >=59 [facility] Comment on above: Order Comment: Order added by Discern Expert. Performed By: #### [id number] #### [facility] [address] [place] [address] Family Medicine Office/Clini c Noteon 01-09-2024 Family Medicine Office/Clinic Note HPI Staff Patient presents for medication reconciliation. Per Medicare Wellness Visit and previous cardiology visit, patient is not sure of which medications he should be taking. pt brought in medication that his daughter is currently setting up for him. He isn['t sure what medication he is taking as he doesn't set them up. pt never received his blood glucose monitor, lancets or test strips that were sent on 12/30/23. Pt sister and daughter would like or chronic care come into home twice a month to set up medications and make sure they are being taken correctly. Last A1c 6.5 10/2023 pt isn't taking any diabetes medication History of Present Illness pt presents today to go over his medication list Review of Systems PHQ Score Initial Depression Screen Score: 0 SCORE Physical Exam Vitals & Measurements HR: 72(Peripheral) RR: 18 BP: 124/86 SpO2: 95% HT: 72 in HT: 183.0 cm WT: 113.5 kg WT: 249.7 lb BMI: 33.89 General: alert, no acute distress ENMT: oral mucosa moist, no pharyngeal erythema or exudate Cardiovascular: regular rate and rhythm, normal peripheral perfusion Respiratory: Lungs CTA, respirations non labored Extremities: no deformity, no trauma Neurological: oriented x 4, LOC appropriate for age, CN II-XII intact, motor strength equal & normal bilaterally, speech normal Assessment/Plan 1. Type 1 diabetes mellitus (E10.9: Type 1 diabetes mellitus without complications) pt presents today to go over medication list. His daughter has been trying to set his meds up and they are getting very confused. and just want to clarify what he should and should not be taking. They are also asking for home health to come once or twice a month for 2 months to just set up his meds. informed them I was not sure if insurance would cover that but we can try. RTC as needed 2. Limited mobility (Z74.09: Other reduced mobility) patient and sister would like referral back to PT. they feel his mobility is worsening. he is having difficulty getting up from sitting or laying position. he feels he is getting weaker. will send referral to PT at [facility]. 3. Difficulty in walking (R26.2: Difficulty in walking, not elsewhere classified) see above 4. Able to mobilize using mobility aids (Z99.89: Dependence on other enabling machines and devices) uses walker at all times. feels like he is getting weaker and was doing much better when he was going to PT 5. Decreased mobility (R26.89: Other abnormalities of gait and mobility) see above Orders: [facility] [place] Ambulatory Referral Follow-up No qualifying data available Problem List/Past Medical History Ongoing Able to mobilize using mobility aids Anticoagulated BMI 34.0-34.9,adult BPH with urinary obstruction Change in bowel function Decreased mobility Difficulty in walking Glucosuria Hyperlipidemia Hypertension Limited mobility Nocturia Screening PSA (prostate specific antigen) Type 1 diabetes mellitus Urinary frequency Urinary urgency Historical Acute myocardial infarction Age related macular degeneration Atrial fibrillation BPH - benign prostatic hyperplasia Chronic emphysema COPD - Chronic obstructive pulmonary disease History of kidney stone Hydronephrosis Hyperglycemia Hypertension Procedure/Surgical History Excision of multiple scrotal sebaceous cysts (09/19/2010), Cardiac catheterisation, combined right and left heart, Cataract, Hip replacement. Medications atorvastatin 40 mg Tab, 40 mg= 1 tab(s), Oral, Daily, 3 refills Basaglar KwikPen 100 units/mL subcutaneous solution, 20 unit(s), SubCutaneous, BID Basaglar KwikPen 100 units/mL subcutaneous solution, See Instructions, 11 refills blood glucose monitor, See Instructions bumetanide, See Instructions, Not taking bumetanide 1 mg Tab, See Instructions, 3 refills DM shoes, See Instructions Eliquis 5 mg oral tablet, 5 mg= 1 tab(s), Oral, BID, 3 refills Farxiga 5 mg oral tablet, 5 mg= 1 tab(s), Oral, Daily, Not taking: need refill Farxiga 5 mg oral tablet, See Instructions, 3 refills gabapentin 100 mg Cap, See Instructions, 5 refills glucose test strips, See Instructions, 2 refills Handicap Placard, See Instructions lancets, See Instructions, 3 refills lisinopril 2.5 mg Tab, 2.5 mg= 1 tab(s), Oral, Daily, 6 refills metformin 500 mg Tab, 500 mg= 1 tab(s), Oral, TID metoprolol 50 mg ER Tab, 50 mg= 1 tab(s), Oral, Daily, 3 refills Misc DME Prescription, See Instructions, 1 refills Allergies No Known Allergies Social History Alcohol - Denies Alcohol Use, 12/30/2023 Substance Abuse - Denies Substance Abuse, 12/30/2023 Tobacco Former smoker, quit more than 30 days ago Tobacco Use:. Never Smokeless Tobacco Use:. 2 per day. 46 year(s). Total pack years: 92. Started age 15.0 Years. Stopped age 63 Years. Household tobacco concerns: No., 01/06/2024 Family History Family history is negative Immunizations Vaccine Date Status influenza virus vaccine, inactivated 07/12/2022 (more content not included)... [facility] Comment on above: Result Comment: Elec tronically Signed By: Renee Renae\.j carlos\Date and Time Signed: 01/09/24 10:29 EDT Physician Orderon 01-09-2024 Physician Order [id number] .00TIFF [facility] Physician Referralon 024 Physician Referral [id number] 3 [id number] .00TIFF [facility] Physician Referral [id number] 3 [id number]#1 .00TIFF [facility] Ambulatory Visit Summaryon 0 01-06-2024 Ambulatory Visit Summary BRAXTON VILLASENOR :1950 Visit Date:01/06/2024 Ambulatory Visit Instructions Your Diagnosis Type 1 diabetes mellitus Your Care Team Attending Physician - Renee Renae Primary Care Physician - Renee Renae This Is Your Medications List Misc Prescription (DM shoes) Misc Prescription (Handicap Placard) Misc Prescription (Misc DME Prescription) Misc Prescription (blood glucose monitor) Misc Prescription (glucose test strips) Misc Prescription (lancets) apixaban (Eliquis 5 mg oral tablet) atorvastatin (atorvastatin 40 mg Tab) bumetanide dapagliflozin (Farxiga 5 mg oral tablet) gabapentin (gabapentin 100 mg Cap) insulin glargine (Basaglar KwikPen 100 units/mL subcutaneous solution) lisinopril (lisinopril 2.5 mg Tab) metformin (metformin 500 mg Tab) metoprolol (metoprolol 50 mg ER Tab) Procedures Performed Excision of multiple scrotal sebaceous cysts (09/19/2010), Cardiac catheterisation, combined right and left heart, Cataract, Hip replacement. Discharge Vitals Heart Rate (Peripheral) 72 Respiratory Rate 18 Blood Pressure 124/86 Height 183.0 cm Height 72 in Weight 113.5 kg Weight 249.7 lb BMI 33.89 What to do next Scheduled Follow-Up Appointments Saturday 1:20 PM EDT With: Where: [facility] Invalid Interpretation Code [address] [place] [address]- \.br\ Saturday 1:00 PM EDT \.br\ With:\.br\ Where: [facility] Family Medicine Office/Clini c Noteon 12-31-2023 Family Medicine Office/Clinic Note Chief Complaint Medicare Wellness Visit Review of Systems PHQ Score Initial Depression Screen Score: 0 SCORE Physical Exam Vitals & Measurements HR: 75(Peripheral) RR: 18 BP: 130/72 SpO2: 95% HT: 183 cm HT: 72 in WT: 115 kg WT: 253 lb BMI: 34.34 Assessment/Plan 1. Annual visit for general adult medical examination with abnormal findings (Z00.01: Encounter for general adult medical examination with abnormal findings) The patient was accompanied by his sister Rica Morrow at this visit. Discussed all the current AHRQ USPSTF?s recommendations for preventative services and all current CDC recommended immunizations, relevant risk recommendations and the following patient brochures were given. Reviewed Medicare Prevention Services checklist. CDC-Falls Prevention and home safety screening reviewed. Patient denies any falls in last 12 months, voices no worry about falling. Exhibits no problems with sitting, some difficulty standing after sitting for awhile and ambulates with a wheeled walker. Patient aware with keeping walk way area free of clutter to prevent tripping and/or falling. [place] Advance Directives reviewed. Patient states he does not have Advance Directives, education given and educational handout provided, encouraged to bring in for scanning into chart. Patient denies any problems with ADL?s and does need some assistance Instrumental ADL?s like medication and money management. Cognitive screening completed with memory and clock face drawing. Positive for cognitive impairment. MMSE Score: 19. Patient is not able to read. Immunization record reviewed, discussed Shingrix and Pneumococcal vaccines with educational handout and availability. COVID vaccines have been administered, with Boosters received. Allergies and medications reviewed and up to date. Reviewed OTC medications, medication list up to date. Patient unable to state what medications he takes, sister states some confusion over what medications patient is currently taking. Follow up scheduled to discuss this with PCP 01/06/24. Blood tests were reviewed: Labs UTD except for microalbumin which is due, discussed with patient who declines to do microalbumin at this visit. No concerns with bowel/ bladder. Patient sister states patient has not done Colon Cancer Screening. Requesting referral for Colonoscopy at [facility]. Referral sent. Reviewed pain symptoms : denies pain. Reviewed all outside providers that patient follows. Last visit summary notes available in chart and/or have been requested. Patient declines any signs or symptoms of depression at this time. 8 minutes spent with screening and documentation. PHQ2 screening score 0. Patient denies drinking alcohol, denies concerns. 8 minutes spent with screening and documentation. Audit score 0. Follow up scheduled with PCP, 01/06/24. AWV has been scheduled, 01/04/25. Abnormal findings with elevated BP, serial assessment completed and documented. Patient qualifies for Chronic Care Management, this was offered and declined by patient and sister at this time. Medicare provides yearly screening for alcohol and depression concerns. This is completed during our Medicare wellness visit for those who do not have a current diagnosis of depression or concerns with alcohol use. I spent a total of 16 minutes on this date of service which included preparing to see the patient, face to face patient care, completing clinical documentation, obtaining and/or reviewing separately obtained history, counseling and educating the patient with handouts. Explanations were provided with reviewing questionnaires. AUDIT risk assessment screening completed, risk score (0) with patient denying concerns with use. Completed PHQ-2 risk assessment for depression with risk score (0), negative findings. Patient has been reminded to notify the provider if there would be a change or concerns with symptoms with fear, unable to sleep, worrying too much or feeling down and/or sad with lost of interest with daily activities. Will continue to monitor with screening yearly during Medicare wellness visits. 2. Type 1 diabetes mellitus (E10.9: Type 1 diabetes mellitus without complications) DM stoplight handout reviewed with signs and symptoms to monitor for and report to PCP. Discussed ADA dietary recommendations with handouts provided. Encouraged to increase daily physical activity, adequate water intake, monitor carbs/chol and fats. Currently taking metformin and Basaglar as directed. Not monitoring BS at home. Follows up yearly with DM foot check, patient to perform at home foot checks to prevent future complications. Complete DM eye exams completed yearly with Dr. Tom in [place], visit summary notes requested for the chart. Follow up with PCP. 3. BPH with urinary obstruction (N40.1: Benign prostatic hyperplasia with lower urinary tract symptoms) Patient denies any difficulty with stream, stopping, starting or dribbling. No complaints of pain, blood in urine or urinatio (more content not included)... Normal [facility] Comment on above: Result Comment: Elec tronically Signed By: Renee Renae\.br\Date and Time Signed: 12/31/23 11:05 EDT\.br\Electronically Co-Signed By: Mayra Jaime LPN\.br\Date and Time Co-Signed: 12/30/23 16:48 EDT Physician Referralon 024 Physician Referral [id number] .00TIFF Normal [facility] Screenson 12-31-2023 Screens [id number] .00TIFF Normal [facility] Ambulatory Visit Summaryon 0 12-30-2023 Ambulatory Visit Summary BRAXTON VILLASENOR :1950 Visit Date:12/30/2023 Ambulatory Visit Instructions Your Diagnosis Annual visit for general adult medical examination with abnormal findings Type 1 diabetes mellitus BPH with urinary obstruction Anticoagulated Hyperlipidemia Hypertension Obesity due to excess calories Colon cancer screening Lung cancer screening declined by patient, Screening declined by patient Screening for abdominal aortic aneurysm Your Care Team Attending Physician - Renee Renae Primary Care Physician - Renee eRnae This Is Your Medications List Misc Prescription (DM shoes) Misc Prescription (Handicap Placard) Misc Prescription (Misc DME Prescription) Misc Prescription (blood glucose monitor) Misc Prescription (glucose test strips) amlodipine (amLODIPine 10 mg Tab) apixaban (Eliquis 5 mg oral tablet) bumetanide gabapentin (gabapentin 100 mg Cap) insulin glargine (Basaglar KwikPen 100 units/mL subcutaneous solution) lisinopril (lisinopril 2.5 mg Tab) metformin (metformin 500 mg Tab) metoprolol (metoprolol 50 mg ER Tab) Procedures Performed Excision of multiple scrotal sebaceous cysts (09/19/2010), Cardiac catheterisation, combined right and left heart, Cataract, Hip replacement. Discharge Vitals Heart Rate (Peripheral) 75 Respiratory Rate 18 Blood Pressure 130/72 Height 72 in Height 183 cm Weight 253 lb Weight 115 kg BMI 34.34 What to do next Scheduled Follow-Up Appointments Saturday 2:40 PM EDT With: Renee Renae Where: [facility] Invalid Interpretation Code [address] [place] [address]- \.br\ Saturday 1:00 PM EDT \.br\ With:\.br\ Where: [facility] Patient Educationon 12-30-19 24 Patient Education Cardiovascular Hypertension, Adult High blood pressure (hypertension) is when the force of blood pumping through the arteries is too strong. The arteries are the blood vessels that carry blood from the heart throughout the body. Hypertension forces the heart to work harder to pump blood and may cause arteries to become narrow or stiff. Untreated or uncontrolled hypertension can lead to a heart attack, heart failure, a stroke, kidney disease, and other problems. A blood pressure reading consists of a higher number over a lower number. Ideally, your blood pressure should be below 120/80. The first ( top ) number is called the systolic pressure. It is a measure of the pressure in your arteries as your heart beats. The second ( bottom ) number is called the diastolic pressure. It is a measure of the pressure in your arteries as the heart relaxes. What are the causes? The exact cause of this condition is not known. There are some conditions that result in high blood pressure. What increases the risk? Certain factors may make you more likely to develop high blood pressure. Some of these risk factors are under your control, including: ? Smoking. ? Not getting enough exercise or physical activity. ? Being overweight. ? Having too much fat, sugar, calories, or salt (sodium) in your diet. ? Drinking too much alcohol. Other risk factors include: ? Having a personal history of heart disease, diabetes, high cholesterol, or kidney disease. ? Stress. ? Having a family history of high blood pressure and high cholesterol. ? Having obstructive sleep apnea. ? Age. The risk increases with age. What are the signs or symptoms? High blood pressure may not cause symptoms. Very high blood pressure (hypertensive crisis) may cause: ? Headache. ? Fast or irregular heartbeats (palpitations). ? Shortness of breath. ? Nosebleed. ? Nausea and vomiting. ? Vision changes. ? Severe chest pain, dizziness, and seizures. How is this diagnosed? This condition is diagnosed by measuring your blood pressure while you are seated, with your arm resting on a flat surface, your legs uncrossed, and your feet flat on the floor. The cuff of the blood pressure monitor will be placed directly against the skin of your upper arm at the level of your heart. Blood pressure should be measured at least twice using the same arm. Certain conditions can cause a difference in blood pressure between your right and left arms. If you have a high blood pressure reading during one visit or you have normal blood pressure with other risk factors, you may be asked to: ? Return on a different day to have your blood pressure checked again. ? Monitor your blood pressure at home for 1 week or longer. If you are diagnosed with hypertension, you may have other blood or imaging tests to help your health care provider understand your overall risk for other conditions. How is this treated? This condition is treated by making healthy lifestyle changes, such as eating healthy foods, exercising more, and reducing your alcohol intake. You may be referred for counseling on a healthy diet and physical activity. Your health care provider may prescribe medicine if lifestyle changes are not enough to get your blood pressure under control and if: ? Your systolic blood pressure is above 130. ? Your diastolic blood pressure is above 80. Your personal target blood pressure may vary depending on your medical conditions, your age, and other factors. Follow these instructions at home: Eating and drinking ? Eat a diet that is high in fiber and potassium, and low in sodium, added sugar, and fat. An example of this eating plan is called the DASH diet. DASH stands for Dietary Approaches to Stop Hypertension. To eat this way: ? Eat plenty of fresh fruits and vegetables. Try to fill one half of your plate at each meal with fruits and vegetables. ? Eat whole grains, such as whole-wheat pasta, brown rice, or whole-grain bread. Fill about one fourth of your plate with whole grains. ? Eat or drink low-fat dairy products, such as skim milk or low-fat yogurt. ? Avoid fatty cuts of meat, processed or cured meats, and poultry with skin. Fill about one fourth of your plate with lean proteins, such as fish, chicken without skin, beans, eggs, or tofu. ? Avoid pre-made and processed foods. These tend to be higher in sodium, added sugar, and fat. ? Reduce your daily sodium intake. Many people with hypertension should eat less than 1,500 mg of sodium a day. ? Do not drink alcohol if: ? Your health care provider tells you not to drink. ? You are , may be , or are planning to become . ? If you drink alcohol: ? Limit how much you have to: ? 0?1 drink a day for women. ? 0?2 drinks a day for men. ? Know how much alcohol is in your drink. In the [place] one drink equals one 12 oz bottle of beer (355 mL), one 5 oz glass of wine (148 mL), or one 1? oz glass (more content not included)... Normal [facility] Ambulatory Visit Summaryon 0 12-27-2023 Ambulatory Visit Summary BRAXTON VILLASENOR :1950 Visit Date:12/27/2023 Ambulatory Visit Instructions Your Diagnosis BMI 32.0-32.9,adult Former smoker Atrial fibrillation Cardiomyopathy, nonischemic Your Care Team Attending Physician - Dash CRAIG, Quan Cho Primary Care Physician - Scott AGOSTO, Renee Dove Referring Physician - NONE, XXXX This Is Your Medications List Misc Prescription (DM shoes) Misc Prescription (Handicap Placard) Misc Prescription (Misc DME Prescription) Misc Prescription (blood glucose monitor) Misc Prescription (glucose test strips) amlodipine (amLODIPine 10 mg Tab) apixaban (Eliquis 5 mg oral tablet) aspirin (aspirin 81 mg Oral EC Tab) atorvastatin bumetanide dapagliflozin (dapagliflozin 5 mg oral tablet) gabapentin (gabapentin 100 mg Cap) insulin glargine (Basaglar KwikPen 100 units/mL subcutaneous solution) metformin (metformin 500 mg Tab) metoprolol (metoprolol 50 mg ER Tab) Procedures Performed Excision of multiple scrotal sebaceous cysts (09/19/2010), Cardiac catheterisation, combined right and left heart, Cataract, Hip replacement. Discharge Vitals Heart Rate (Peripheral) 60 Respiratory Rate 18 Blood Pressure 128/80 Height 188.0 cm Height 74 in Weight 115.1 kg Weight 253.22 lb BMI 32.57 What to do next Scheduled Follow-Up Appointments Saturday 2:00 PM EDT With: Where: [facility] [place] Normal [address] [place] [address]- \.br\ Medications\.br\ What How Much When Why Instructions\.br \ Unchanged amlodipine (amLODIPine 10 mg Tab) 1 Tablets By Mouth Every day\.br\ Unchanged apixaban (Eliquis 5 mg oral tablet) 1 Tablets By Mouth 2 times a day Duration: 90 Days\.br\ Unchanged aspirin (aspirin 81 mg Oral EC Tab) 1 Tablets By Mouth Every day\.br\ Unchanged atorvastatin 40 Milligram By Mouth Every day\.br\ Unchanged bumetanide See instructions 1 mg Oral with breakfast and lunch \.br\ Unchanged dapagliflozin (dapagliflozin 5 mg oral tablet) 1 Tablets By Mouth Every day\.br\ Unchanged gabapentin (gabapentin 100 mg Cap) 1 Capsules By Mouth 3 times a day\.br\ Unchanged insulin glargine (Basaglar KwikPen 100 units/ mL subcutaneous solution) 20 Units Subcutaneous 2 times a day\.br\ Unchanged metformin (metformin 500 mg Tab) 1 Tablets By Mouth 3 times a day\.br\ Unchanged metoprolol (metoprolol 50 mg ER Tab) 1 Tablets By Mouth Every day Duration: 90 Days\.br\ Unchanged Misc Prescription (blood glucose monitor) See instructions check Blood sugar 4 times a day \.br\ Unchanged Misc Prescription (DM shoes) See instructions DM shoes \.br\ Unchanged Misc Prescription (glucose test strips) See instructions check blood sugar 4 times per day \.br\ Unchanged Misc Prescription (Handicap Placard) See instructions Hypertension Hyperlipidemia Impaired ambulation BMI 31.0-31.9,adult Non-smoker Greater than 5 years \.br\ Unchanged Misc Prescription (Misc DME Prescription) See instructions BD pen needles to use bid for insulin injections Dx E11.8 \.br\ Allergies\.br\ No Known Allergies\.br\ Problems\.br\ Ongoing - Any problem that you are currently receiving treatment for.\.br\ Anticoagulated\. br\ BPH with urinary obstruction\.br\ Change in bowel function\.br\ Glucosuria\.br\ Hyperlipidemia\. br\ Hypertension\.br \ Nocturia\.br\ Screening PSA (prostate specific antigen)\.br\ Type 1 diabetes mellitus\.br\ Urinary frequency\.br\ Urinary urgency\.br\ Historical - Any problem that you are no longer receiving treatment for.\.br\ Acute myocardial infarction\.br\ Age related macular degeneration\.br \ Atrial fibrillation\.br \ BPH - benign prostatic hyperplasia\.br\ Chronic emphysema\.br\ COPD - Chronic obstructive pulmonary disease\.br\ History of kidney stone\.br\ Hydronephrosis\. br\ Hyperglycemia\.b r\ Hypertension\.br \ Patient Survey\.br\ You may receive a survey via text or e-mail asking about your office visit. Please share your experience with us by completing your survey. We appreciate your feedback and thank you for choosing us for your care.\.br\ \.br\ [facility] Ambulatory Visit Summary BRAXTON VILLASENOR :1950 Visit Date:12/27/2023 Ambulatory Visit Instructions Your Diagnosis BMI 32.0-32.9,adult Former smoker Your Care Team Attending Physician - Dash CRAIG, Quan Cho Primary Care Physician - Soctt AGOSTO, Renee Dove Referring Physician - NONE, XXXX This Is Your Medications List Misc Prescription (DM shoes) Misc Prescription (Handicap Placard) Misc Prescription (Misc DME Prescription) Misc Prescription (blood glucose monitor) Misc Prescription (glucose test strips) amlodipine (amLODIPine 10 mg Tab) apixaban (Eliquis 5 mg oral tablet) aspirin (aspirin 81 mg Oral EC Tab) atorvastatin bumetanide dapagliflozin (dapagliflozin 5 mg oral tablet) gabapentin (gabapentin 100 mg Cap) insulin glargine (Basaglar KwikPen 100 units/mL subcutaneous solution) metformin (metformin 500 mg Tab) metoprolol (metoprolol 50 mg ER Tab) Procedures Performed Excision of multiple scrotal sebaceous cysts (09/19/2010), Cardiac catheterisation, combined right and left heart, Cataract, Hip replacement. Discharge Vitals Heart Rate (Peripheral) 60 Respiratory Rate 18 Blood Pressure 128/80 Height 188.0 cm Height 74 in Weight 115.1 kg Weight 253.22 lb BMI 32.57 What to do next Scheduled Follow-Up Appointments Saturday 2:00 PM EDT With: Where: [facility] [address] [id number] \.br\ Medications\.br\ What How Much When Why Instructions\.br \ Unchanged amlodipine (amLODIPine 10 mg Tab) 1 Tablets By Mouth Every day\.br\ Unchanged apixaban (Eliquis 5 mg oral tablet) 1 Tablets By Mouth 2 times a day Duration: 90 Days\.br\ Unchanged aspirin (aspirin 81 mg Oral EC Tab) 1 Tablets By Mouth Every day\.br\ Unchanged atorvastatin 40 Milligram By Mouth Every day\.br\ Unchanged bumetanide See instructions 1 mg Oral with breakfast and lunch \.br\ Unchanged dapagliflozin (dapagliflozin 5 mg oral tablet) 1 Tablets By Mouth Every day\.br\ Unchanged gabapentin (gabapentin 100 mg Cap) 1 Capsules By Mouth 3 times a day\.br\ Unchanged insulin glargine (Basaglar KwikPen 100 units/ mL subcutaneous solution) 20 Units Subcutaneous 2 times a day\.br\ Unchanged metformin (metformin 500 mg Tab) 1 Tablets By Mouth 3 times a day\.br\ Unchanged metoprolol (metoprolol 50 mg ER Tab) 1 Tablets By Mouth Every day Duration: 90 Days\.br\ Unchanged Misc Prescription (blood glucose monitor) See instructions check Blood sugar 4 times a day \.br\ Unchanged Misc Prescription (DM shoes) See instructions DM shoes \.br\ Unchanged Misc Prescription (glucose test strips) See instructions check blood sugar 4 times per day \.br\ Unchanged Misc Prescription (Handicap Placard) See instructions Hypertension Hyperlipidemia Impaired ambulation BMI 31.0-31.9,adult Non-smoker Greater than 5 years \.br\ Unchanged Misc Prescription (Misc DME Prescription) See instructions BD pen needles to use bid for insulin injections Dx E11.8 \.br\ Allergies\.br\ No Known Allergies\.br\ Problems\.br\ Ongoing - Any problem that you are currently receiving treatment for.\.br\ Anticoagulated\. br\ BPH with urinary obstruction\.br\ Change in bowel function\.br\ Glucosuria\.br\ Hyperlipidemia\. br\ Hypertension\.br \ Nocturia\.br\ Screening PSA (prostate specific antigen)\.br\ Type 1 diabetes mellitus\.br\ Urinary frequency\.br\ Urinary urgency\.br\ Historical - Any problem that you are no longer receiving treatment for.\.br\ Acute myocardial infarction\.br\ Age related macular degeneration\.br \ Atrial fibrillation\.br \ BPH - benign prostatic hyperplasia\.br\ Chronic emphysema\.br\ COPD - Chronic obstructive pulmonary disease\.br\ History of kidney stone\.br\ Hydronephrosis\. br\ Hyperglycemia\.b r\ Hypertension\.br \ Patient Survey\.br\ You may receive a survey via text or e-mail asking about your office visit. Please share your experience with us by completing your survey. We appreciate your feedback and thank you for choosing us for your care.\.br\ \.br\ [facility] Ambulatory Visit Summary BRAXTON VILLASENOR :1950 Visit Date:12/27/2023 Ambulatory Visit Instructions Your Diagnosis BMI 32.0-32.9,adult Former smoker Your Care Team Attending Physician - Dash CRAIG, Quan Cho Primary Care Physician - Scott AGOSTO, Renee Dove Referring Physician - NONE, XXXX This Is Your Medications List Misc Prescription (DM shoes) Misc Prescription (Handicap Placard) Misc Prescription (Misc DME Prescription) Misc Prescription (blood glucose monitor) Misc Prescription (glucose test strips) amlodipine (amLODIPine 10 mg Tab) apixaban (Eliquis 5 mg oral tablet) aspirin (aspirin 81 mg Oral EC Tab) atorvastatin bumetanide dapagliflozin (dapagliflozin 5 mg oral tablet) gabapentin (gabapentin 100 mg Cap) insulin glargine (Basaglar KwikPen 100 units/mL subcutaneous solution) metformin (metformin 500 mg Tab) metoprolol (metoprolol 50 mg ER Tab) Procedures Performed Excision of multiple scrotal sebaceous cysts (09/19/2010), Cardiac catheterisation, combined right and left heart, Cataract, Hip replacement. Discharge Vitals Heart Rate (Peripheral) 60 Respiratory Rate 18 Blood Pressure 128/80 Height 188.0 cm Height 74 in Weight 115.1 kg Weight 253.22 lb BMI 32.57 What to do next Scheduled Follow-Up Appointments Saturday 2:00 PM EDT With: Where: [facility] [address] [place] [address] \.br\ Medications\.br\ What How Much When Why Instructions\.br \ Unchanged amlodipine (amLODIPine 10 mg Tab) 1 Tablets By Mouth Every day\.br\ Unchanged apixaban (Eliquis 5 mg oral tablet) 1 Tablets By Mouth 2 times a day Duration: 90 Days\.br\ Unchanged aspirin (aspirin 81 mg Oral EC Tab) 1 Tablets By Mouth Every day\.br\ Unchanged atorvastatin 40 Milligram By Mouth Every day\.br\ Unchanged bumetanide See instructions 1 mg Oral with breakfast and lunch \.br\ Unchanged dapagliflozin (dapagliflozin 5 mg oral tablet) 1 Tablets By Mouth Every day\.br\ Unchanged gabapentin (gabapentin 100 mg Cap) 1 Capsules By Mouth 3 times a day\.br\ Unchanged insulin glargine (Basaglar KwikPen 100 units/ mL subcutaneous solution) 20 Units Subcutaneous 2 times a day\.br\ Unchanged metformin (metformin 500 mg Tab) 1 Tablets By Mouth 3 times a day\.br\ Unchanged metoprolol (metoprolol 50 mg ER Tab) 1 Tablets By Mouth Every day Duration: 90 Days\.br\ Unchanged Misc Prescription (blood glucose monitor) See instructions check Blood sugar 4 times a day \.br\ Unchanged Misc Prescription (DM shoes) See instructions DM shoes \.br\ Unchanged Misc Prescription (glucose test strips) See instructions check blood sugar 4 times per day \.br\ Unchanged Misc Prescription (Handicap Placard) See instructions Hypertension Hyperlipidemia Impaired ambulation BMI 31.0-31.9,adult Non-smoker Greater than 5 years \.br\ Unchanged Misc Prescription (Misc DME Prescription) See instructions BD pen needles to use bid for insulin injections Dx E11.8 \.br\ Allergies\.br\ No Known Allergies\.br\ Problems\.br\ Ongoing - Any problem that you are currently receiving treatment for.\.br\ Anticoagulated\. br\ BPH with urinary obstruction\.br\ Change in bowel function\.br\ Glucosuria\.br\ Hyperlipidemia\. br\ Hypertension\.br \ Nocturia\.br\ Screening PSA (prostate specific antigen)\.br\ Type 1 diabetes mellitus\.br\ Urinary frequency\.br\ Urinary urgency\.br\ Historical - Any problem that you are no longer receiving treatment for.\.br\ Acute myocardial infarction\.br\ Age related macular degeneration\.br \ Atrial fibrillation\.br \ BPH - benign prostatic hyperplasia\.br\ Chronic emphysema\.br\ COPD - Chronic obstructive pulmonary disease\.br\ History of kidney stone\.br\ Hydronephrosis\. br\ Hyperglycemia\.b r\ Hypertension\.br \ Patient Survey\.br\ You may receive a survey via text or e-mail asking about your office visit. Please share your experience with us by completing your survey. We appreciate your feedback and thank you for choosing us for your care.\.br\ \.br\ [facility] Heart and Vascular Office/Cl inic Noteon 12-27-2023 Heart and Vascular Office/Clinic Note Chief Complaint 2 month follow up, go over test results of Echocardiogram and Chemical stress test. RADHA pt stopped amlodopoine and re starting ASA 81mg daily. Pt sister is here with him today and is worried about pt due to he isn't taking his medication as prescribed. History of Present Illness The patient is a 73-year-old male who presents for a follow-up appointment. Based on the prior medical records, obtained from [facility], it sounds like he had a nonischemic cardiomyopathy with last cardiac catheterization performed in 2016 in the setting of depressed EF, which demonstrated just mild disease of the LAD and RCA; at that time, LVEF was in the range of 15%. It subsequently recovered. He is accompanied by his relative, who does most of the talking. He was seen by Dr. Villa last time. In the meantime, he had a workup, which included a transthoracic echocardiogram, which showed normal LVEF in the range of 60%, no significant structural heart disease. Myocardial perfusion imaging study was obtained as well and showed LVEF poststress in the range of 50%, stress and diastolic cavity size was normal, there was mild abnormality in the anteroseptal segment, no TID. The patient states he is feeling well. Reports no chest pain, shortness of breath, dizziness or lightheadedness, PND or orthopnea, palpitations, syncope or presyncope. There is a significant confusion in terms of his medications. Review of Systems PHQ Score Initial Depression Screen Score: 0 SCORE ROS - Provider Constitutional: no fever, no chills, no sweats, no weakness Respiratory: no shortness of breath, no cough Cardiovascular: no chest pain Neuro: no dizziness. no loss of consciousness Physical Exam Vitals & Measurements HR: 60(Peripheral) RR: 18 BP: 128/80 SpO2: 96% HT: 74 in HT: 188.0 cm WT: 115.1 kg WT: 253.22 lb BMI: 32.57 General: alert, no acute distress Neck: Supple, noJVD nocarotid bruit Cardiovascular: regular rate and rhythm, no murmur normal peripheral perfusion Respiratory: Lungs CTAB, respirations non labored Extremities: 1+ edema left lower extremity. +2 edema right lower extremity Neurological: oriented x 4, LOC appropriate for age, speech normal Skin: Warm, dry, intact- no rash or concerning lesions Assessment/Plan 1. BMI 32.0-32.9,adult (Z68.32: Body mass index [BMI] 32.0-32.9, adult) 2. Former smoker (Z87.891: Personal history of nicotine dependence) 3. Atrial fibrillation (I48.91: Unspecified atrial fibrillation) The patient does have a history of atrial fibrillation. He is on cardioembolic protection with apixaban. No evidence of tachycardia. 4. Cardiomyopathy, nonischemic (I42.8: Other cardiomyopathies) LVEF within normal limits. I am going to start lisinopril 2.5 mg daily, both in the setting of that and for a long-term vascular protection in the setting of diabetes. BMP in 7 to 10 days. Stress test does not have high risk criteria. The patient reports no anginal /anginal equivalent symptoms. Based on our discussion, we elected to pursue medical management, at least at this point in time. 5. Hyperlipidemia (E78.5: Hyperlipidemia, unspecified) LDL not at goal. Unclear if taking Lipitor. 6. Hypertension (I10: Essential (primary) hypertension) Blood pressure is not elevated. Unclear about his medications. I suggested the patient to give me a call and clarify what he is taking exactly. Follow-up in 1 year, earlier if clinically indicated I spent over 30 minutes for the patient's encounter, including chart review, seeing and examining the patient, documentation time Problem List/Past Medical History Ongoing Anticoagulated BPH with urinary obstruction Change in bowel function Glucosuria Hyperlipidemia Hypertension Nocturia Screening PSA (prostate specific antigen) Type 1 diabetes mellitus Urinary frequency Urinary urgency Historical Acute myocardial infarction Age related macular degeneration Atrial fibrillation BPH - benign prostatic hyperplasia Chronic emphysema COPD - Chronic obstructive pulmonary disease History of kidney stone Hydronephrosis Hyperglycemia Hypertension Procedure/Surgical History Excision of multiple scrotal sebaceous cysts (09/19/2010), Cardiac catheterisation, combined right and left heart, Cataract, Hip replacement. Medications amLODIPine 10 mg Tab, 10 mg= 1 tab(s), Oral, Daily, Investigating: pt not sure if hes taking this states daughter sets his pills up. He brought in all pill bottles and this is one he brought. aspirin 81 mg Oral EC Tab, 81 mg= 1 tab(s), Oral, Daily, 6 refills atorvastatin, 40 mg, Oral, Daily, Not taking Basaglar KwikPen 100 units/mL subcutaneous solution, 20 unit(s), SubCutaneous, BID blood glucose monitor, See Instructions bumetanide, See Instructions, Not taking dapagliflozin 5 mg oral tablet, 5 mg= 1 tab(s), Oral, Daily, Not taking DM shoes, See Instructions Eliquis 5 mg oral tablet, 5 mg= 1 tab( (more content not included)... Normal [facility] Comment on above: Result Comment: Elec tronically Signed By: Dash CRAIG, Quan Cho\.br\Date and Time Signed: 12/27/23 11:04 EDT Physician Orderon 12-27-2023 Physician Order [id number] .00TIFF [facility] Echocardiographyon 4 Echocardiography [id number] .00TIFF [facility] Outside Radiologyon 12-17-19 24 Outside Radiology [id number]# 1.00TIFF [facility] Echocardiographyon 4 Echocardiography [id number]# 1.00TIFF [facility] Cardiovascular Reporton 12-01 Cardiovascular Report [id number] .00TIFF [facility] No Panel InformationOrdered By: Madhu Travis on 12-13-2023 Nuc Stress EF 50 % [employer] Phone: Stress Target HR 149 bpm GAUTAM [employer] Work Phone: [employer] Phone: No Panel Informationon 12-12 Image quality is good. Stress Function: Left ventricular function post-stress is abnormal. Global function is mildly reduced. There was a single regional abnormality during stress. Post-stress ejection fraction is 50%. The stress end diastolic cavity size is normal. There is a abnormality in the anteroseptal segments. The abnormality has mild hypokinesis. Perfusion Conclusion: There is no evidence of transient ischemic dilation (TID). Perfusion Defect: There is a mild severity left ventricular stress perfusion defect that is small to medium in size present in the inferoapical and apex segment(s) that is predominantly fixed. This defect was visualized during the stress phase of imaging. The defect appears to be probable infarction. The possibility of a small degree of ischemia cannot be excluded. Stress Test: A pharmacological stress test was performed using lexiscan. The patient reached the end of the protocol. Overall, these cardiac imaging results are most consistent with a low to intermediate risk for significant reversible coronary artery disease. Depending on the patient symptoms and level of clinical suspicion, aggressive medical management vs. additional testing by coronary angiography may be indicated. Stress Findings A pharmacological stress test was performed using lexiscan. The patient reported no symptoms during the stress test. The patient reached the end of the protocol. Nuclear Study Quality Nuclear Cardiac SPECT rest then gated stress with tomographic imaging/tomography utilized for the myocardial perfusion procedure. Lexiscan was used as the stressing method and agent. (Lexiscan given via a 10 - 20 sec injection). One day myocardial perfusion study (12/12/2023). This Single Photon Emission Computer Tomography (SPECT) study utilized tomographic imaging/tomography for the tomographic myocardial perfusion imaging performed during this study. Overall image quality is good. Diaphragmatic attenuation artifact noted. Perfusion Comments Prone images were obtained. Prone imaging was helpful in correcting soft tissue attenuation. Perfusion Defect There is a mild severity left ventricular stress perfusion defect that is small to medium in size present in the inferoapical and apex segment(s) that is predominantly fixed. This defect was visualized during the stress phase of imaging. The defect appears to be probable infarction. The possibility of a small degree of ischemia cannot be excluded. Perfusion Defect Conclusion There is no evidence of transient ischemic dilation (TID). Stress Function Comments Left ventricular function post-stress is abnormal. Global function is mildly reduced. There was a single regional abnormality during stress. Post-stress ejection fraction is 50%. The stress end diastolic cavity size is normal. There is a abnormality in the anteroseptal segments. The abnormality has mild hypokinesis. [facility] CV RPACS STRESS Outside Radiologyon 12-13-19 24 Outside Radiology [id number]# 1.00TIFF Normal [facility] No Panel Informationon 12-11 Radiology Study observation (narrative) GAUTAM ESCOBAR [facility] Physician Orderon 11-22-2023 Physician Order Patient having testing done @ [facility], orders faxed to [facility] scheduling to schedule, confirmation received. [id number]# 1.00TIFF Normal [facility] Heart and Vascular Office/Cl inic Noteon 11-15-2023 Heart and Vascular Office/Clinic Note Chief Complaint here to establish care History of Present Illness Braxton Villasenor presents today for an evaluation of an irregular heartbeat. He is accompanied by an adult female. The adult female notes that he had a heart attack 5 to 6 years ago and was in [facility]. He would visit a coding analyst annually at [place], and she had not been coming with him to his appointments, so she is unaware of when he last saw his doctor. Her concern is whether, given the prolonged duration of his medications, there is anything that can be discontinued or adjusted. When he was here on 10/14/2023, for his examination, they thought he should visit our office as well. He had a stent placed in his lower extremity when he had a heart attack. He denies chest pain or dyspnea. He rides his exercise bike every morning. Review of Systems Constitutional: no fever, no sweats, no weakness Skin: no rash, no lesions, no bruising/petechiae ENMT: no sore throat, no congestion, no hoarseness Respiratory: no shortness of breath, no cough, no orthopnea, no wheezing Cardiovascular: no chest pain, no palpitations, no edema Gastrointestinal: no nausea, no vomiting, no diarrhea, no GI bleeding Genitourinary: no anuria/oliguria no hematuria Musculoskeletal: no back pain, no trauma Neurologic: no headache, no dizziness, no numbness, no weakness Psychiatric: no sleeping problems, no irritability, no anxiety/depression. Heme/Lymph: no bleeding tendency, no bruising tendency Allergy/Immunologic: no recurrent infections, no impaired immunity Additional ROS info: Except as noted in the above Review of Systems and in the History of Present Illness all other systems have been reviewed and are negative or noncontributory Physical Exam Vitals & Measurements HR: 62(Peripheral) BP: 132/82 SpO2: 80% HT: 74 in HT: 188 cm WT: 109.3 kg WT: 240.46 lb BMI: 30.92 General: alert, no acute distress Skin: warm, dry intact Head: atraumatic, normocephalic Neck: trachea midline, no JVD, no bruit Eye: normal conjunctiva, sclera clear ENMT: oral mucosa moist Cardiovascular: regular rate and rhythm, no murmur, normal peripheral perfusion Respiratory: lungs CTA, respirations non labored Chest wall: no deformity. Gastrointestinal: soft, non-distended, no tenderness, no guarding. Back: no tenderness, normal ROM, normal alignment. Extremities: no edema, no deformity, no trauma Neurological: oriented x 4, LOC appropriate for age, sensation equal & normal bilaterally, speech normal Psychiatric: cooperative, affect appropriate for age, normal judgement, normal psychiatric thoughts. Assessment/Plan 1. Atrial fibrillation. Discussed the indications for the medications he is currently taking which includes eliquis 5 mg BID and metoprolol succinate. The patient will discontinue amlodipine. He will restart aspirin 81 mg daily. I will order an echocardiogram and a chemical stress test. Portions of this record may have been created with voice recognition artificial intelligence software, specifically [employer], [employer] and or [employer]. Substitutions may have occurred due to the inherent limitations of voice recognition and artificial intelligence software. ATTESTATION: Documentation services were performed after the patient or guardian consented to allow [employer] to record this visit. JOSAFAT safety equipment testing specialist and provider reviewed before signing. JOSAFAT: Lauren Amador Ano[employer]/ Pasted by: Selena Mondragon. Follow-up No qualifying data available Problem List/Past Medical History Ongoing Anticoagulated BPH with urinary obstruction Change in bowel function Glucosuria Hyperlipidemia Hypertension Nocturia Screening PSA (prostate specific antigen) Type 1 diabetes mellitus Urinary frequency Urinary urgency Historical Acute myocardial infarction Age related macular degeneration Atrial fibrillation BPH - benign prostatic hyperplasia Chronic emphysema COPD - Chronic obstructive pulmonary disease History of kidney stone Hydronephrosis Hyperglycemia Hypertension Procedure/Surgical History Excision of multiple scrotal sebaceous cysts (09/19/2010), Cardiac catheterisation, combined right and left heart, Cataract, Hip replacement. Medications amLODIPine 10 mg Tab, 10 mg= 1 tab(s), Oral, Daily atorvastatin, 40 mg, Oral, Daily Basaglar KwikPen 100 units/mL subcutaneous solution, 20 unit(s), SubCutaneous, BID blood glucose monitor, See Instructions bumetanide, See Instructions dapagliflozin 5 mg oral tablet, 5 mg= 1 tab(s), Oral, Daily DM shoes, See Instructions Eliquis 5 mg oral tablet, 5 mg= 1 tab(s), Oral, BID, 3 refills gabapentin 100 mg Cap, 100 mg= 1 cap(s), Oral, TID glucose test strips, See Instructions Handicap Placard, See Instructions metformin 500 mg Tab, 500 mg= 1 tab(s), Oral, TID metoprolol 50 mg ER Tab, 50 mg= 1 tab(s), Oral, Daily, 3 ref (more content not included)... [facility] Comment on above: Result Comment: Elec tronically Signed By: Alvaro CRAIG, Denia Leonard\.br\Date and Time Signed: 11/15/23 22:21 EDT\.br\Electronically Co-Signed By: Selena Mondragon\.br\Date and Time Co-Signed: 10/18/23 16:42 EST AUD - Assessmentson 11-13-19 24 AUD - Assessments [id number]#1 .00TIFF [facility] Outside Cardiovascularon Outside Cardiovascular [id number]# 1.00TIFF [facility] Auth for Release of Medical Recordson 10-21-2023 Auth for Release of Medical Records [id number]# 1.00TIFF [facility] Auth for Release of Medical Records [id number]#1 .00TIFF [facility] Electrocardiogram - 12 leado n 10-21-2023 Electrocardiogram - 12 lead [id number]# 1.00TIFF Normal [facility] Physician Orderon 10-21-2023 Physician Order [id number]# 1.00TIFF Normal [facility] Physician Order [id number]# 1.00TIFF Normal [facility] Physician Referralon 024 Physician Referral [id number]# 1.00TIFF Normal [facility] [id number] 10-15-2023 HbA1c (Bld) [Mass fraction] 6.5 % High <=5.9 [facility] Comment on above: Performed By: #### 2 311407, 6888841, 0735674, 182962607, 8104967, 00887094 ####[facility] [address] [place] [address] Reminderson 10-15-2023 Reminders - From: Renee Renae To: [facility] - Clinical; Sent: 10/15/2023 13:16:46 EST Show up: 10/15/2023 13:17:00 EST Subject: Ambulatory Reminder Due Date/Time: 10/16/2023 13:16:00 EST Labs look really good Results: Date Result Name Ind Value Ref Range 10/14/2023 14:25 WBC 6.0 E9/L (4.0 - 11.0) 10/14/2023 14:25 RBC 5.2 E12/L (4.3 - 5.9) 10/14/2023 14:25 HGB 14.7 gm/dL (13.5 - 17.5) 10/14/2023 14:25 Hct 44.0 % (37.7 - 49.0) 10/14/2023 14:25 MCV 84.9 fL (80.0 - 100.0) 10/14/2023 14:25 MCH 28.4 pg (27.0 - 34.0) 10/14/2023 14:25 MCHC 33.4 gm/dL (31.4 - 36.0) 10/14/2023 14:25 RDW ((H)) 14.7 % (10.9 - 14.2) 10/14/2023 14:25 Platelet 275.0 E9/L (150.0 - 500.0) 10/14/2023 14:25 MPV 8.4 fL (6.4 - 10.8) 10/14/2023 14:25 Neutro Auto 67.0 % (36.0 - 75.0) 10/14/2023 14:25 Lymph Auto 23.8 % (14.0 - 50.0) 10/14/2023 14:25 [place] Auto 6.3 % (4.0 - 14.0) 10/14/2023 14:25 Eos Auto 2.5 % (0.0 - 8.0) 10/14/2023 14:25 Basophil Auto 0.4 % (0.0 - 2.0) 10/14/2023 14:25 Neutro Absolute 4.0 E9/L (2.0 - 7.5) 10/14/2023 14:25 Lymph Absolute 1.4 E9/L (1.0 - 4.0) 10/14/2023 14:25 [place] Absolute 0.4 E9/L (0.2 - 1.0) 10/14/2023 14:25 Eos Absolute 0.2 E9/L (0.0 - 0.5) 10/14/2023 14:25 Basophil Absolute 0.0 E9/L (0.0 - 0.2) 10/14/2023 14:25 Glucose Lvl 96 mg/dL (55 - 199) 10/14/2023 14:25 BUN 20 mg/dL (5 - 21) 10/14/2023 14:25 Creatinine 1.0 mg/dL (0.5 - 1.3) 10/14/2023 14:25 eGFR 80 mL/min/1.73 m2 (>=59 - ) 10/14/2023 14:25 BUN/Creat Ratio 20 (10 - 20) 10/14/2023 14:25 Sodium Lvl 138 mmol/L (135 - 145) 10/14/2023 14:25 Potassium Lvl 4.5 mmol/L (3.5 - 5.3) 10/14/2023 14:25 Chloride 107 mmol/L (101 - 111) 10/14/2023 14:25 CO2 24 mmol/L (21 - 31) 10/14/2023 14:25 AGAP 12 mEq/L (6 - 16) 10/14/2023 14:25 Calcium Lvl ((L)) 8.7 mg/dL (8.9 - 11.1) 10/14/2023 14:25 Alk Phos 53 Int._Unit/L (21 - 98) 10/14/2023 14:25 ALT 12 Int._Unit/L (6 - 46) 10/14/2023 14:25 AST 14 Int._Unit/L (5 - 43) 10/14/2023 14:25 Total Protein 6.8 gm/dL (6.0 - 7.8) 10/14/2023 14:25 Albumin Lvl 4.0 gm/dL (3.3 - 5.0) 10/14/2023 14:25 Globulin 2.8 gm/dL (1.4 - 4.0) 10/14/2023 14:25 A/G Ratio 1.4 (1.1 - 2.2) 10/14/2023 14:25 Bili Total 1.0 mg/dL (0.0 - 1.1) 10/14/2023 14:25 Chol 170 mg/dL (120 - 200) 10/14/2023 14:25 Trig ((H)) 159 mg/dL ( - <=149) 10/14/2023 14:25 HDL 33 mg/dL 10/14/2023 14:25 LDL Direct 123 mg/dL ( - <=129) 10/14/2023 14:25 VLDL 32 mg/dL (7 - 40) 10/14/2023 14:25 TSH 1.87 mcIU/mL (0.34 - 5.60) pt made aware of message below Normal [facility] Ambulatory Visit Summaryon 0 10-14-2023 Ambulatory Visit Summary BRAXTON VILLASENOR :1950 Visit Date:10/14/2023 Ambulatory Visit Instructions Your Diagnosis Hypertension Type 1 diabetes mellitus Hyperlipidemia Non-smoker BMI 32.0-32.9,adult Tests Performed CBC w/ Auto Diff -- Results Pending -- CMP -- Results Pending -- Hemoglobin A1c -- Results Pending -- Lipid Panel -- Results Pending -- TSH -- Results Pending -- Please visit your patient portal for your results or contact your primary care physician. Your Care Team Attending Physician - Renee Renae Primary Care Physician - Renee Renae This Is Your Medications List Misc Prescription (DM shoes) Misc Prescription (Handicap Placard) Misc Prescription (Misc DME Prescription) amlodipine (amLODIPine 10 mg Tab) apixaban (Eliquis 5 mg oral tablet) atorvastatin bumetanide dapagliflozin (dapagliflozin 5 mg oral tablet) gabapentin (gabapentin 100 mg Cap) insulin glargine (Basaglar KwikPen 100 units/mL subcutaneous solution) metformin (metformin 500 mg Tab) metoprolol (metoprolol 50 mg ER Tab) Procedures Performed Excision of multiple scrotal sebaceous cysts (09/19/2010), Cardiac catheterisation, combined right and left heart, Cataract, Hip replacement. Discharge Vitals Heart Rate (Peripheral) 77 Blood Pressure 140/90 Height 188 cm Height 74 in Weight 114.7 kg Weight 252.34 lb BMI 32.45 What to do next Scheduled Follow-Up Appointments Saturday 2:00 PM EST With: Alvaro CRAIG, Denia Leonard Where: [facility] [place] Saturday 2:00 PM EDT With: Where: [facility] [place] Normal [address] [place] [address]- \.br\ Medications\.br\ What How Much When Why Instructions\.br \ Unchanged amlodipine (amLODIPine 10 mg Tab) 1 Tablets By Mouth Every day\.br\ Unchanged apixaban (Eliquis 5 mg oral tablet) 1 Tablets By Mouth 2 times a day Duration: 90 Days\.br\ Unchanged atorvastatin 40 Milligram By Mouth Every day\.br\ Unchanged bumetanide See instructions 1 mg Oral with breakfast and lunch \.br\ Unchanged dapagliflozin (dapagliflozin 5 mg oral tablet) 1 Tablets By Mouth Every day\.br\ Unchanged gabapentin (gabapentin 100 mg Cap) 1 Capsules By Mouth 3 times a day\.br\ Unchanged insulin glargine (Basaglar KwikPen 100 units/ mL subcutaneous solution) 20 Units Subcutaneous 2 times a day\.br\ Unchanged metformin (metformin 500 mg Tab) 1 Tablets By Mouth 3 times a day\.br\ Unchanged metoprolol (metoprolol 50 mg ER Tab) 1 Tablets By Mouth Every day Duration: 90 Days\.br\ Unchanged Misc Prescription (DM shoes) See instructions DM shoes \.br\ Unchanged Misc Prescription (Handicap Placard) See instructions Hypertension Hyperlipidemia Impaired ambulation BMI 31.0-31.9,adult Non-smoker Greater than 5 years \.br\ Unchanged Misc Prescription (Misc DME Prescription) See instructions BD pen needles to use bid for insulin injections Dx E11.8 \.br\ Allergies\.br\ No Known Allergies\.br\ Problems\.br\ Ongoing - Any problem that you are currently receiving treatment for.\.br\ Anticoagulated\. br\ BPH with urinary obstruction\.br\ Glucosuria\.br\ Hyperlipidemia\. br\ Hypertension\.br \ Nocturia\.br\ Screening PSA (prostate specific antigen)\.br\ Type 1 diabetes mellitus\.br\ Urinary frequency\.br\ Urinary urgency\.br\ Historical - Any problem that you are no longer receiving treatment for.\.br\ Acute myocardial infarction\.br\ Age related macular degeneration\.br \ Atrial fibrillation\.br \ BPH - benign prostatic hyperplasia\.br\ Chronic emphysema\.br\ COPD - Chronic obstructive pulmonary disease\.br\ History of kidney stone\.br\ Hydronephrosis\. br\ Hyperglycemia\.b r\ Hypertension\.br \ Patient Survey\.br\ You may receive a survey via text or e-mail asking about your office visit. Please share your experience with us by completing your survey. We appreciate your feedback and thank you for choosing us for your care.\.br\ \.br\ [facility] CBC w/ Auto Diffon 4 Basophil Absolute 0.0 E9/L Normal 0.0-0.2 [facility] Comment on above: Performed By: #### 2 764089, 2143418, 5611806, 185394955, 7951559, 77573937 ####[address] [place] [address] Basophils/100 WBC (Bld) 0.4 % Normal 0.0-2.0 [facility] Comment on above: Performed By: #### 2 054873, 6659925, 4112601, 027661827, 4764099, 26530215 ####[address] [address] Eos Absolute 0.2 E9/L Normal 0.0-0.5 [facility] Comment on above: Performed By: #### 2 177750, 2867404, 6301606, 282677760, 2839549, 88293585 ####[address] [address] Eosinophils/100 WBC (Bld) 2.5 % Normal 0.0-8.0 [facility] Comment on above: Performed By: #### 2 382142, 8770495, 7929488, 084557913, 7664264, 27262480 ####[address] [address] Erythrocyte distribution width (RBC) [Ratio] 14.7 % High 10.9-14.2 [facility] Comment on above: Performed By: #### 2 236523, 4715160, 3323684, 976439493, 2414778, 37206864 ####[address] [address] Hematocrit (Bld) [Volume fraction] 44.0 % Normal 37.7-49.0 [facility] Comment on above: Performed By: #### 2 315407, 4851061, 9125263, 141933093, 7553940, 39164635 ####[address] [address] Hemoglobin (Bld) [Mass/Vol] 14.7 g/dL Normal 13.5-17.5 [facility] Comment on above: Performed By: #### 2 952922, 2315964, 8679847, 276052119, 0298661, 85971547 ####[facility] [address] [place] [address] Lymph Absolute 1.4 E9/L Normal 1.0-4.0 [facility] Comment on above: Performed By: #### 2 679834, 3828074, 2910879, 842911837, 7813142, 91136678 ####[address] [address] Lymphocytes/100 WBC (Bld) 23.8 % Normal 14.0-50.0 [facility] Comment on above: Performed By: #### 2 233574, 3934593, 3425748, 471368928, 3662769, 99343985 ####[address] [address] MCH (RBC) [Entitic mass] 28.4 pg Normal 27.0-34.0 [facility] Comment on above: Performed By: #### 2 815515, 1092241, 9410042, 718302067, 0151585, 30520958 ####[address] [address] MCHC (RBC) [Mass/Vol] 33.4 g/dL Normal 31.4-36.0 [facility] Comment on above: Performed By: #### 2 702807, 9349255, 6254610, 554483834, 2428701, 82770379 ####[address] [address] MCV (RBC) [Entitic vol] 84.9 fL Normal 80.0-100.0 [facility] Comment on above: Performed By: #### 2 613877, 4440248, 4202421, 619450010, 2670715, 42930337 ####[address] [place] [address] [place] Absolute 0.4 E9/L Normal 0.2-1.0 [facility] Comment on above: Performed By: #### 2 988084, 3092027, 0652663, 451380682, 2897544, 32522884 ####[facility] [address] [place] [address] Monocytes/100 WBC (Bld) 6.3 % Normal 4.0-14.0 [facility] Comment on above: Performed By: #### 2 615762, 3680513, 5762721, 189035896, 0858917, 31028989 ####[address] [address] Neutro Absolute 4.0 E9/L Normal 2.0-7.5 [facility] Comment on above: Performed By: #### 2 958788, 0896327, 7848507, 895951005, 2268112, 09383742 ####[address] [address] Neutro Auto 67.0 % Normal 36.0-75.0 [facility] Comment on above: Performed By: #### 2 845665, 0394033, 5439088, 525105662, 5866109, 30757344 ####[address] [address] Platelet 275.0 E9/L Normal 150.0-500.0 [facility] Comment on above: Performed By: #### 2 112015, 9020268, 6304956, 165997810, 6092396, 43586558 ####[address] [address] Platelet mean volume (Bld) [Entitic vol] 8.4 fL Normal 6.4-10.8 [facility] Comment on above: Performed By: #### 2 326339, 6272803, 1190782, 426902233, 8982165, 90098683 ####[address] [place] [address] RBC 5.2 E12/L Normal 4.3-5.9 [facility] Comment on above: Performed By: #### 2 244217, 8690852, 0075595, 294058951, 4613749, 54552391 ####[facility] [address] [place] [address] WBC 6.0 E9/L Normal 4.0-11.0 [facility] Comment on above: Performed By: #### 2 515411, 0260221, 0800472, 296583915, 0874490, 68557899 ####[facility] [address] [place] [address] CHEMISTRYOrdered By: SYSTEM SYSTEM on 10-14-2023 Albumin [Mass/Vol] 4.0 g/dL Normal 3.3 - 5.0 gm/dL R emisol Chem Albumin/Globulin [Mass ratio] 1.4 {ratio} Normal 1.1 - 2.2 Rem[facility] Alk Phos 53 [iU]/d Normal 21 - 98 Int._Unit/L Remisol Chem ALT 12 [iU]/d Normal 6 - 46 Int._Unit/L Remisol Chem Anion gap [Moles/Vol] 12 mmol/L Normal 6 - 16 mEq/L Rem[facility] Chem AST 14 [iU]/d Normal 5 - 43 Int._Unit/L Remisol Chem Bili Total 1.0 mg/dL Normal 0.0 - 1.1 mg/dL Remisol C hem Calcium [Mass/Vol] 8.7 mg/dL Low 8.9 - 11.1 mg/dL [facility] Chloride [Moles/Vol] 107 mmol/L Normal 101 - 111 mmol/ L [facility] Cholesterol [Mass/Vol] 170 mg/dL Normal 120 - 200 mg/dL [facility] Cholesterol in HDL [Mass/Vol] 33 mg/dL Invalid Interpretation Code Rem[facility] Comment on above: Result Comment: '>= 60 LOW RISK' '<= 40 HIGH RISK' Cholesterol in LDL [Mass/Vol] 123 mg/dL Normal <=129mg/dL [facility] Cholesterol in VLDL [Mass/Vol] 32 mg/dL Normal 7 - 40 mg/dL [facility] CO2 [Moles/Vol] 24 mmol/L Normal 21 - 31 mmol/L Remis ol Chem Creatinine [Mass/Vol] 1.0 mg/dL Normal 0.5 - 1.3 mg/dL [facility] Chem eGFR 80 mL/min/1.73 m2 Normal >=59mL/min /1.73 m2 [facility] Globulin (S) [Mass/Vol] 2.8 g/dL Normal 1.4 - 4.0 gm/dL Rem[facility] Chem Glucose [Mass/Vol] 96 mg/dL Normal 55 - 199 mg/dL Re misol Chem Potassium [Moles/Vol] 4.5 mmol/L Normal 3.5 - 5.3 mmol/L Remisol Chem Protein [Mass/Vol] 6.8 g/dL Normal 6.0 - 7.8 gm/dL R emisol Chem Sodium [Moles/Vol] 138 mmol/L Normal 135 - 145 mmol/L Remisol Chem Triglyceride [Mass/Vol] 159 mg/dL High <=149mg/dL [facility] TSH Qn 1.87 m[IU]/L Normal 0.34 - 5.60 mcIU/mL [facility] Urea nitrogen [Mass/Vol] 20 mg/dL Normal 5 - 21 mg/dL Rem[facility] Chem Urea nitrogen/Creatinine [Mass ratio] 20 mg/mg Normal 10 - 20 Remisol Chem CMPon 10-14-2023 Albumin [Mass/Vol] 4.0 g/dL Normal 3.3-5.0 [facility] Comment on above: Performed By: #### 2 635969, 4363189, 8243685, 892783286, 3647428, 91691952 ####[facility] [address] [place] [address] Albumin/Globulin [Mass ratio] 1.4 {ratio} Normal 1.1-2.2 [facility] Comment on above: Performed By: #### 2 143352, 5478414, 0572683, 070476708, 9093775, 53854374 ####[facility] [address] [place] [address] Alk Phos 53 Int._Unit/L Normal 21-98 [facility] Comment on above: Performed By: #### 2 675926, 4696029, 9793108, 362289948, 0687247, 75965242 ####[facility] [address] [place] [address] ALT 12 Int._Unit/L Normal 6-46 [facility] Comment on above: Performed By: #### 2 436876, 4649357, 1310144, 720661029, 2995299, 08339952 ####[facility] [address] [place] [address] Anion gap [Moles/Vol] 12 mmol/L Normal 6-16 [facility] Comment on above: Performed By: #### 2 728291, 4826591, 8210491, 013358625, 8865029, 47065835 ####[facility] [address] [place] [address] AST 14 Int._Unit/L Normal 5-43 [facility] Comment on above: Performed By: #### 2 515365, 2263155, 5826562, 353427393, 5037287, 98985845 ####[facility] [address] [place] [address] Bili Total 1.0 mg/dL Normal 0.0-1.1 [facility] Comment on above: Performed By: #### 2 202458, 7301315, 5150895, 809876461, 6659160, 55499176 ####[facility] [address] [place] [address] BUN/Creat Ratio 20 No Units Normal 10-20 [facility] Comment on above: Performed By: #### 2 202667, 5959727, 3987240, 141452947, 1649490, 90474475 ####[facility] [address] [place] [address] Calcium [Mass/Vol] 8.7 mg/dL Low 8.9-11.1 [facility] Comment on above: Performed By: #### 2 989994, 4237163, 9326973, 497439414, 6793760, 49678536 ####[facility] [address] [place] [address] Chloride [Moles/Vol] 107 mmol/L Normal 101-111 [facility] Comment on above: Performed By: #### 2 138594, 1472383, 3998080, 264160098, 8952951, 55338208 ####[facility] [address] [place] [address] CO2 [Moles/Vol] 24 mmol/L Normal 21-31 [facility] Comment on above: Performed By: #### 2 284965, 2057840, 4953310, 283610407, 6402773, 06927121 ####[facility] [address] [place] [address] Creatinine [Mass/Vol] 1.0 mg/dL Normal 0.5-1.3 [facility] Comment on above: Performed By: #### 2 841069, 1732417, 0441944, 302740624, 0459795, 58989849 ####[facility] [address] [place] [address] Globulin (S) [Mass/Vol] 2.8 g/dL Normal 1.4-4.0 [facility] Comment on above: Performed By: #### 2 764088, 1981636, 2383034, 565258729, 8281242, 59404418 ####[facility] [address] [place] [address] Glucose [Mass/Vol] 96 mg/dL Normal 55-199 [facility] Comment on above: Performed By: #### 2 364213, 6547935, 6976464, 800451219, 6208539, 86727857 ####[facility] [address] [place] [address] Potassium [Moles/Vol] 4.5 mmol/L Normal 3.5-5.3 [facility] Comment on above: Performed By: #### 2 170534, 5934640, 3298480, 160424672, 2646490, 06178318 ####[facility] [address] [place] [address] Protein [Mass/Vol] 6.8 g/dL Normal 6.0-7.8 [facility] Comment on above: Performed By: #### 2 804168, 4714370, 3403796, 871395467, 7477916, 61106787 ####[facility] [address] [place] [address] Sodium [Moles/Vol] 138 mmol/L Normal 135-145 [facility] Comment on above: Performed By: #### 2 670850, 8833830, 4454659, 484133441, 7528050, 09871879 ####[facility] [address] [place] [address] Urea nitrogen [Mass/Vol] 20 mg/dL Normal 5-21 [facility] Comment on above: Performed By: #### 2 345582, 9832102, 2620261, 856777553, 1559199, 99109433 ####[facility] [address] [place] [address] Family Medicine Office/Clini c Noteon 10-14-2023 Family Medicine Office/Clinic Note HPI Staff Braxton is a 72 year old male presenting for follow up Patient is here for follow up on hypertension. How often are you checking your blood pressure? _ What are your average readings? _ Do you have any of the following symptoms? Chest Pain? no Palpitations? no RAMON/SOB? no Headache? no Peripheral Edema? no Light Headed? no Patient is here for follow up on Diabetes. How often are you checking your blood sugars? _ times per day What are your average readings? _ Paresthesias, Ulcerations or sores? no Lisinopril, aspirin, statin therapy? Yes Foot Exam: Eye Exam: Last A1c: Hgb A1C %: 7.4 % High (05/21/23 11:11:00) Questions/Concerns: History of Present Illness pt presents today for 6 month follow up. he is with his sister. he would like to know if we can discontinue some of his meds. Review of Systems ROS - Provider Constitutional: no fever, no chills, no sweats, no fatigue Respiratory: no shortness of breath, no cough, no orthopnea, no wheezing. Cardiovascular: no chest pain, no palpitations, no edema. Neurologic: no headache, no dizziness, no numbness, no weakness. Physical Exam Vitals & Measurements HR: 77(Peripheral) BP: 140/90 SpO2: 100% HT: 74 in HT: 188 cm WT: 114.7 kg WT: 252.34 lb BMI: 32.45 General: alert, no acute distress ENMT: oral mucosa moist, no pharyngeal erythema or exudate Cardiovascular: regularly-irregular rate and rhythm, normal peripheral perfusion Respiratory: Lungs CTA, respirations non labored Extremities: no deformity, no trauma Neurological: oriented x 4, LOC appropriate for age, CN II-XII intact, motor strength equal & normal bilaterally, speech normal Assessment/Plan 1. Hypertension (I10: Essential (primary) hypertension) BP 140/90 in office today. pt and his sister are asking if he needs to be on so many meds. He is questioning why he has to keep taking eloquis. he has no idea why he is even on it. has not seen a coding analyst in 3-4 years. used to see a coding analyst in [place] from [place]. pt scheduled to see Dr. Villa on Saturday at 2pm. labs drawn in office today. all questions answered. RTC 3 months Ordered: Body Mass Index (BMI) documented 3008F CBC w/ Auto Diff Comprehensive Metabolic Panel Current tobacco non-user 1036F Depression Screening Negative 3352F HgbA1c Influenza immunization administered or previously received 4274F Lab Specimen Collect 50727 Lipid Panel Most recent diastolic blood pressure >=90 mm Hg 3080F Most recent systolic blood pressure >= 140 mm Hg 3077F Patient screen for fall risk: no falls in last year or 1 fall with no injury in last year 1101F Thyroid Stimulating Hormone 2. Type 1 diabetes mellitus (E10.9: Type 1 diabetes mellitus without complications) will check HGBA1C in office today. Ordered: Body Mass Index (BMI) documented 3008F CBC w/ Auto Diff Comprehensive Metabolic Panel Current tobacco non-user 1036F Depression Screening Negative 3352F HgbA1c Influenza immunization administered or previously received 4274F Lab Specimen Collect 93803 Lipid Panel Most recent diastolic blood pressure >=90 mm Hg 3080F Most recent systolic blood pressure >= 140 mm Hg 3077F Patient screen for fall risk: no falls in last year or 1 fall with no injury in last year 1101F Thyroid Stimulating Hormone 3. Hyperlipidemia (E78.5: Hyperlipidemia, unspecified) lipids drawn in office today Ordered: CBC w/ Auto Diff Comprehensive Metabolic Panel HgbA1c Lab Specimen Collect 50629 Lipid Panel Thyroid Stimulating Hormone 4. Change in bowel function (R19.8: Other specified symptoms and signs involving the digestive system and abdomen) pt states he goes back and forth between constipation and diarrhea. does have bad abdominal pain when he gets backed up. denies black tarry stools. has never had a colonoscopy. will refer to GI . 5. Non-smoker (Z78.9: Other specified health status) continue not smoking Ordered: Body Mass Index (BMI) documented 3008F CBC w/ Auto Diff Comprehensive Metabolic Panel Current tobacco non-user 1036F Depression Screening Negative 3352F HgbA1c Influenza immunization administered or previously received 4274F Lab Specimen Collect 61751 Lipid Panel Most recent diastolic blood pressure >=90 mm Hg 3080F Most recent systolic blood pressure >= 140 mm Hg 3077F Patient screen for fall risk: no falls in last year or 1 fall with no injury in last year 1101F Thyroid Stimulating Hormone 6. BMI 32.0-32.9,adult (Z68.32: Body mass index [BMI] 32.0-32.9, adult) BMI education complete Ordered: Body Mass Index (BMI) documented 3008F CBC w/ Auto Diff Comprehensive Metabolic Panel Current tobacco non-user 1036F Depression Screening Negative 3352F HgbA1c Influenza immunization administered or previously received 4274F Lab Specimen Collect 31471 Lipid Panel Most recent diastolic blood pressure >=90 mm Hg 3080F Most recent systolic blood pr (more content not included)... Normal [facility] Comment on above: Result Comment: Elec tronically Signed By: Renee Renae\.j carlos\Date and Time Signed: 10/14/23 14:31 EST HEMATOLOGYOrdered By: SYSTEM SYSTEM on 10-14-2023 Basophil Absolute 0.0 E9/L Normal 0.0 - 0.2 E9/L Rem isol Heme Basophils/100 WBC (Bld) 0.4 % Normal 0.0 - 2.0 % Remisol Heme Eos Absolute 0.2 E9/L Normal 0.0 - 0.5 E9/L Remisol Heme Eosinophils/100 WBC (Bld) 2.5 % Normal 0.0 - 8.0 % Remisol Heme Erythrocyte distribution width (RBC) [Ratio] 14.7 % High 10.9 - 14.2 % Remisol Heme Hematocrit (Bld) [Volume fraction] 44.0 % Normal 37.7 - 49.0 % Remisol Heme Hemoglobin (Bld) [Mass/Vol] 14.7 g/dL Normal 13.5 - 17.5 gm/dL Remisol Heme Lymph Absolute 1.4 E9/L Normal 1.0 - 4.0 E9/L Remiso l Heme Lymphocytes/100 WBC (Bld) 23.8 % Normal 14.0 - 50.0 % Remisol Heme MCH (RBC) [Entitic mass] 28.4 pg Normal 27.0 - 34.0 pg Remisol Heme MCHC (RBC) [Mass/Vol] 33.4 g/dL Normal 31.4 - 36.0 gm/dL Remisol Heme MCV (RBC) [Entitic vol] 84.9 fL Normal 80.0 - 100.0 fL Remisol Heme [place] Absolute 0.4 E9/L Normal 0.2 - 1.0 E9/L Remisol Heme Monocytes/100 WBC (Bld) 6.3 % Normal 4.0 - 14.0 % Remisol Heme Neutro Absolute 4.0 E9/L Normal 2.0 - 7.5 E9/L Remis ol Heme Neutro Auto 67.0 % Normal 36.0 - 75.0 % Remisol He me Platelet 275.0 E9/L Normal 150.0 - 500.0 E9/L Remisol Heme Platelet mean volume (Bld) [Entitic vol] 8.4 fL Normal 6.4 - 10.8 fL Remisol Heme RBC 5.2 E12/L Normal 4.3 - 5.9 E12/L Remisol H lizet WBC 6.0 E9/L Normal 4.0 - 11.0 E9/L Remisol H lizet Lipid Panelon 10-14-2023 Cholesterol [Mass/Vol] 170 mg/dL Normal 120-200 [facility] Comment on above: Performed By: #### 2 [id number], [id number], [id number] ####[facility] [address] [place] [address] Cholesterol in HDL [Mass/Vol] 33 mg/dL Invalid Interpretation Code [facility] Comment on above: Result Comment: '>= 60 LOW RISK' '<= 40 HIGH RISK' Performed By: #### 2 [id number], [id number], [id number], [id number], [id number] ####[facility] [address] [place] [address] Cholesterol in LDL [Mass/Vol] 123 mg/dL Normal <=129 [facility] Comment on above: Performed By: #### 2 [id number], [id number], [id number], [id number], [id number], [id number] ####[facility] [address] [place] [address] Cholesterol in VLDL [Mass/Vol] 32 mg/dL Normal 7-40 [facility] Comment on above: Performed By: #### 2 [id number], [id number], [id number], [id number], [id number], [id number] ####[facility] [address] [facility] [place] [address] Triglyceride [Mass/Vol] 159 mg/dL High <=149 [facility] Comment on above: Performed By: #### 2 [id number], [id number], [id number], [id number], [id number], [id number] ####[facility] [address] [place] [address] TSHon 10-14-2023 TSH Qn 1.87 m[IU]/L Normal 0.34-5.60 [facility] Comment on above: Performed By: #### 2 [id number], [id number], [id number], [id number], [id number], [id number] ####[facility] [address] [place] [address] eGFRon 10-14-2023 eGFR 80 mL/min/1.73 m2 Normal >=59 [facility] Comment on above: Order Comment: Order added by Discern Expert. Performed By: #### 2 [id number], [id number], [id number], [id number], [id number], [id number] ####[facility] [address] [place] [address] Provider Letteron 10-04-2023 Provider Letter October 04, 2023 [place] [facility] [address] [place] [address] [place] [id number] : 1950 Dear Braxton , We have been trying to reach you with no success. It is important that you return our call regarding your recent call upon receiving this letter. Also, at the time of your call, please provide us with your current information. Thank you for your prompt attention to this matter. Sincerely, [address] [address] Normal [facility] CHEMISTRYOrdered By: Art nicole on 05-21-2023 HbA1c (Bld) [Mass fraction] 7.4 % High <=5.9% [facility] ChemAutoSS CBC AUTO DIFFon 12-11-2022 BASO # 0.0 103/ul Normal 0.0-0.1 [facility] Comment on above: Performed By: #### C BC #### [facility] [address] [place] [address] Dr. Vito Bond Basophils/100 WBC (Bld) 0.1 % Critically low 0.2-2.0 [facility] Comment on above: Performed By: #### C BC #### [facility] [address] [place] [address] Dr. Vito Bond EO # 0.0 103/ul Normal 0.0-0.7 [facility] Comment on above: Performed By: #### C BC #### [facility] [address] [place] [address] Dr. iVto Bond Eosinophils/100 WBC (Bld) 0.0 % Critically low 0.9-7.0 [facility] Comment on above: Performed By: #### C BC #### [facility] [address] [place] [address] Dr. Vito Bond Erythrocyte distribution width (RBC) [Ratio] 14.6 % Normal 11.0-15.0 [facility] Comment on above: Performed By: #### C BC #### [facility] [address] [place] [address] Dr. Vito Bond Hematocrit (Bld) [Volume fraction] 42.0 % Normal 42.0-54.0 [facility] Comment on above: Performed By: #### C BC #### [facility] [address] [place] [address] Dr. Vito Bond Hemoglobin (Bld) [Mass/Vol] 14.7 g/dL Normal 14.0-18.0 [facility] Comment on above: Performed By: #### C BC #### [facility] [address] [place] [address] Dr. Vito Bnod IG # 0.02 10e3/ul Normal 0.00-0.03 [facility] Comment on above: Performed By: #### C BC #### [facility] [address] [place] [address] Dr. Vito Bond IG % 0.3 % Normal 0.0-0.5 [facility] Comment on above: Performed By: #### C BC #### [facility] [address] [place] [address] Dr. Vito Bond LYMPH # 0.6 103/ul Critically low 1.2-3.8 [facility] Comment on above: Performed By: #### C BC #### [facility] [address] [place] [address] Dr. Vito Bond Lymphocytes/100 WBC (Bld) 8.1 % Critically low 20.5-60.0 [facility] Comment on above: Performed By: #### C BC #### [facility] [address] [place] [address] Dr. Vito Bond MANUAL DIFF REQ NO Normal [facility] Comment on above: Performed By: #### C BC #### [facility] [address] [place] [address] Dr. Vito Bond MCH (RBC) [Entitic mass] 28.9 pg Normal 25.9-34.0 [facility] Comment on above: Performed By: #### C BC #### [facility] [address] [address] [address] Vito Bond MCHC (RBC) [Mass/Vol] 35.0 g/dL Normal 29.9-35.2 [facility] Comment on above: Performed By: #### C BC #### [facility] [address] [address] [address] Vito Bond MCV (RBC) [Entitic vol] 82.5 fL Normal 80.0-94.0 [facility] Comment on above: Performed By: #### C BC #### [facility] [address] [address] [address] Vito Bond MONO # 0.1 103/ul Critically low 0.3-0.8 [facility] Comment on above: Performed By: #### C BC #### [facility] [address] [address] [address] Vito Bond Monocytes/100 WBC (Bld) 1.5 % Critically low 1.7-12.0 [facility] Comment on above: Performed By: #### C BC #### [facility] [address] [place] [address] Dr. Vito Bond NEUT # 6.2 103/ul Normal 1.4-6.5 [facility] Comment on above: Performed By: #### C BC #### [facility] [address] [address] [address] Vito Bond Neutrophils/100 WBC (Bld) 90.0 % Critically high 43.0-75.0 [facility] Comment on above: Performed By: #### C BC #### [facility] [address] [address] [address] Vito Bond Platelet mean volume (Bld) [Entitic vol] 10.4 fL Normal 9.5-13.5 [facility] Comment on above: Performed By: #### C BC #### [facility] [address] [address] [address] Vito Bond PLT 265 103/ul Normal 150-450 [facility] Comment on above: Performed By: #### C BC #### [facility] [address] [address] [address] Vito Bond RBC 5.09 106/ul Normal 4.70-6.10 [facility] Comment on above: Performed By: #### C BC #### [facility] [address] [address] [address] Vito Bond WBC 6.9 103/ul Normal 4.0-11.0 [facility] Comment on above: Performed By: #### C BC #### [facility] [address] [place] [address] Dr. Vito Bond PROF CHEM 8 (BAS METB)on Anion gap [Moles/Vol] 16.3 mmol/L Normal [facility] Comment on above: Performed By: #### C BC #### [facility] [address] [place] [address] Dr. Vito Bond Calcium [Mass/Vol] 8.8 mg/dL Normal 8.5-10.1 [facility] Comment on above: Performed By: #### C BC #### [facility] [address] [place] [address] Dr. Vito Bond Chloride [Moles/Vol] 104 mmol/L Normal 98-107 [facility] Comment on above: Performed By: #### C BC #### [facility] [address] [place] [address] Dr. Vito Bond CO2 [Moles/Vol] 24.0 mmol/L Normal 21.0-32.0 [facility] Comment on above: Performed By: #### C BC #### [facility] [address] [place] [address] Dr. Vito Bond Creatinine [Mass/Vol] 1.11 mg/dL Normal 0.70-1.30 [facility] Comment on above: Performed By: #### C BC #### [facility] [address] [place] [address] Dr. Vito Bond EGFR-AF ISRAELI >60 Normal >=60 [facility] Comment on above: Performed By: #### C BC #### [facility] [address] [address] [address] Vito Bond EGFR-NON AF ISRAELI >60 Normal >=60 [facility] Comment on above: Performed By: #### C BC #### [facility] [address] [address] [address] Vito Bond Glucose [Mass/Vol] 206 mg/dL Critically high 74-106 [facility] Comment on above: Performed By: #### C BC #### [facility] [address] [address] [address] Vito Bond Potassium [Moles/Vol] 4.3 mmol/L Normal 3.5-5.1 [facility] Comment on above: Performed By: #### C BC #### [facility] [address] [place] [address] Dr. Vito Bond Sodium [Moles/Vol] 140 mmol/L Normal 136-145 [facility] Comment on above: Performed By: #### C BC #### [facility] [address] [place] [address] Dr. Vito Bond Urea nitrogen [Mass/Vol] 26.0 mg/dL Critically high 7.0-18.0 [facility] Comment on above: Performed By: #### C BC #### [facility] [address] [place] [address] Dr. Vito Bond Urea nitrogen/Creatinine [Mass ratio] 23.4 mg/mg Normal [facility] Comment on above: Performed By: #### C BC #### [facility] [address] [place] [address] Dr. Vito Bond CBC AUTO DIFFon 12-10-2022 BASO # 0.0 103/ul Normal 0.0-0.1 [facility] Comment on above: Performed By: #### C BC #### [facility] [address] [place] [address] Dr. Vito Bond Basophils/100 WBC (Bld) 0.3 % Normal 0.2-2.0 [facility] Comment on above: Performed By: #### C BC #### [facility] [address] [address] [address] Vito Bond EO # 0.1 103/ul Normal 0.0-0.7 [facility] Comment on above: Performed By: #### C BC #### [facility] [address] [place] [address] Dr. Vito Bond Eosinophils/100 WBC (Bld) 1.0 % Normal 0.9-7.0 [facility] Comment on above: Performed By: #### C BC #### [facility] [address] [place] [address] Dr. Vito Bond Erythrocyte distribution width (RBC) [Ratio] 14.6 % Normal 11.0-15.0 [facility] Comment on above: Performed By: #### C BC #### [facility] [address] [place] [address] Dr. Vito Bond Hematocrit (Bld) [Volume fraction] 42.2 % Normal 42.0-54.0 [facility] Comment on above: Performed By: #### C BC #### [facility] [address] [place] [address] Dr. Vito Bond Hemoglobin (Bld) [Mass/Vol] 14.5 g/dL Normal 14.0-18.0 [facility] Comment on above: Performed By: #### C BC #### [facility] [address] [place] [address] Dr. Vito Bond IG # 0.06 10e3/ul Critically high 0.00-0.03 [facility] Comment on above: Performed By: #### C BC #### [facility] [address] [place] [address] Dr. Vito Bond IG % 0.6 % Critically high 0.0-0.5 [facility] Comment on above: Performed By: #### C BC #### [facility] [address] [place] [address] Dr. Vito Bond LYMPH # 1.5 103/ul Normal 1.2-3.8 [facility] Comment on above: Performed By: #### C BC #### [facility] [address] [address] [address] Vito Bond Lymphocytes/100 WBC (Bld) 15.5 % Critically low 20.5-60.0 [facility] Comment on above: Performed By: #### C BC #### [facility] [address] [address] [address] Vito Bond MANUAL DIFF REQ NO Normal [facility] Comment on above: Performed By: #### C BC #### [facility] [address] [address] [address] Vito Bond MCH (RBC) [Entitic mass] 28.4 pg Normal 25.9-34.0 [facility] Comment on above: Performed By: #### C BC #### [facility] [address] [place] [address] Dr. Vito Bond MCHC (RBC) [Mass/Vol] 34.4 g/dL Normal 29.9-35.2 [facility] Comment on above: Performed By: #### C BC #### [facility] [address] [place] [address] Dr. Vito Bond MCV (RBC) [Entitic vol] 82.6 fL Normal 80.0-94.0 [facility] Comment on above: Performed By: #### C BC #### [facility] [address] [place] [address] Dr. Vito Bond MONO # 0.6 103/ul Normal 0.3-0.8 [facility] Comment on above: Performed By: #### C BC #### [facility] [address] [place] [address] Dr. Vito Bond Monocytes/100 WBC (Bld) 6.2 % Normal 1.7-12.0 [facility] Comment on above: Performed By: #### C BC #### [facility] [address] [place] [address] Dr. Vito Bond NEUT # 7.6 103/ul Critically high 1.4-6.5 [facility] Comment on above: Performed By: #### C BC #### [facility] [address] [place] [address] Dr. Vito Bond Neutrophils/100 WBC (Bld) 76.4 % Critically high 43.0-75.0 [facility] Comment on above: Performed By: #### C BC #### [facility] [address] [address] [address] Vito Bond Platelet mean volume (Bld) [Entitic vol] 9.9 fL Normal 9.5-13.5 [facility] Comment on above: Performed By: #### C BC #### [facility] [address] [address] [address] Vito Bond PLT 275 103/ul Normal 150-450 [facility] Comment on above: Performed By: #### C BC #### [facility] [address] [address] [address] Vito Bond RBC 5.11 106/ul Normal 4.70-6.10 [facility] Comment on above: Performed By: #### C BC #### [facility] [address] [address] [address] Vito Bond WBC 9.9 103/ul Normal 4.0-11.0 [facility] Comment on above: Performed By: #### C BC #### [facility] [address] [place] [address] HIP RT WO CONon CT HIP RT WO CON EXAM: CT HIP RT WO CON 12/10/2022 4:07 AM EDT [facility]001 CLINICAL STATEMENT: PAIN IN UNSPECIFIED HIP COMPARISON: No prior studies are available at the time of dictation. TECHNIQUE: Helically acquired images were obtained of the right hip spine without contrast. Dose reduction techniques were achieved by using automated exposure control and/or adjustment of mA and/or kV according to patient size and/or use of iterative reconstruction technique. 2D reformatted images were reviewed FINDINGS: Severe right hip joint space narrowing with multiple subchondral cystic changes and hypertrophic spurring. There is no acute fracture or dilatation. Periarticular soft tissues are unremarkable. Anterior and posterior elements are intact. No destructive bony lesions. IMPRESSION: Severe right hip joint space narrowing with multiple subchondral cystic changes and hypertrophic spurring. No acute fracture or subluxation. Electronically authenticated by: NATALIA PEREZ Date: 2022-12-10 05:19 Normal [facility] Covid-19 PCR (CVDTBH)on 12-01 SARS-CoV-2 (COVID-19) RNA MICHAEL+probe Ql (Unsp spec) Not detected Normal NOT DETECTED [facility] Comment on above: Result Comment: When diagnostic testing is negative, the possibility of a false negative should be considered in the context of a patient's recent exposures and the presence of clinical signs and symptoms consistent with SARS-CoV-2. This test is not yet approved or cleared by the [place] FDA. When there are no FDA-approved or cleared tests available, and other criteria are met, FDA can make tests available under an emergency access mechanism called an Emergency Use Authorization (EUA). The EUA for this test is supported by the [place] of Health and Human Service's declaration that circumstances exist to justify the emergency use of in vitro diagnostics for the detection and/or diagnosis of the virus that causes COVID-19. This EUA will remain in effect for the duration of the COVID-19 declaration justifying emergency of IVDs, unless it is terminated or revoked by the FDA (after which the test may no longer be used). Performed By: #### C VDTBH #### [facility] [address] [place] [address] Dr. Vito Bond POINT OF CARE GLUCOSEon 12-01 Glucose [Mass/Vol] 327 mg/dL Critically high 74-106 T [facility] Comment on above: Performed By: #### P OCGLUC #### [facility] [address] [place] [address] Dr. Vito Bond PROF CHEM 8 (BAS METB)on Anion gap [Moles/Vol] 11.3 mmol/L Normal [facility] Comment on above: Performed By: #### B MP #### [facility] [address] [place] [address] Dr. Vito Bond Calcium [Mass/Vol] 8.7 mg/dL Normal 8.5-10.1 [facility] Comment on above: Performed By: #### B MP #### [facility] [address] [address] [address] Vito Bond Chloride [Moles/Vol] 102 mmol/L Normal 98-107 [facility] Comment on above: Performed By: #### B MP #### [facility] [address] [address] [address] Vito Bond CO2 [Moles/Vol] 29.5 mmol/L Normal 21.0-32.0 [facility] Comment on above: Performed By: #### B MP #### [facility] [address] [address] [address] Vito Bond Creatinine [Mass/Vol] 1.38 mg/dL Critically high 0.70-1.30 [facility] Comment on above: Performed By: #### B MP #### [facility] [address] [place] [address] Dr. Vito Bond EGFR-AF ISRAELI >60 Normal >=60 [facility] Comment on above: Performed By: #### B MP #### [facility] [address] [address] [address] Vito Bond EGFR-NON AF ISRAELI 51 mL/min/1.73m2 Critically low >=60 [facility] Comment on above: Performed By: #### B MP #### [facility] [address] [address] [address] Vito Bond Glucose [Mass/Vol] 346 mg/dL Critically high 74-106 [facility] Comment on above: Performed By: #### B MP #### [facility] [address] [address] [address] Vito Bond Potassium [Moles/Vol] 3.8 mmol/L Normal 3.5-5.1 [facility] Comment on above: Performed By: #### B MP #### [facility] [address] [address] [address] Vito Bond Sodium [Moles/Vol] 139 mmol/L Normal 136-145 [facility] Comment on above: Performed By: #### B MP #### [facility] [address] [address] [address] Vito Bond Urea nitrogen [Mass/Vol] 29.0 mg/dL Critically high 7.0-18.0 [facility] Comment on above: Performed By: #### B MP #### [facility] [address] [place], [place] [address] Dr. Vito Bond Urea nitrogen/Creatinine [Mass ratio] 21.0 mg/mg Normal [facility] Comment on above: Performed By: #### B MP #### [facility] [id number] Vito Bond XR FEMUR RTon 12-10-2022 XR FEMUR RT EXAM: XR FEMUR RT HISTORY: Right lower extremity Pain COMPARISON: X-ray performed 01/07/2019. TECHNIQUE: AP and lateral views of the right femur are obtained. FINDINGS: Suboptimal positioning. Osteopenia degrades evaluation. No focal soft tissue swelling. Vascular calcifications are present. No acute fracture or dislocation is identified. Severe degenerative change of the hip is present with osseous remodeling. IMPRESSION: 1. Osteopenia and suboptimal positioning degrade evaluation. No acute fracture or dislocation is identified. 2. Severe degenerative change of the right hip persist. Electronically authenticated by: LYNNETTE CISNEROS Date: 2022-12-10 04:07 Normal [facility] XR HIP RT 2 3V W PELVISon XR HIP RT 2 3V W PELVIS EXAM: XR HIP RT 2 3V W PELVIS HISTORY: Right hip Pain COMPARISON: X-ray performed 01/07/2019. TECHNIQUE: Frontal view of the pelvis and 3 views of the right hip are obtained. FINDINGS: There is no focal soft tissue swelling. Vascular calcifications are present. Osteopenia degrades evaluation. Severe degenerative change of the right femoral acetabular joint is again present with osseous remodeling, subchondral cysts and sclerosis. Left femoral acetabular joint prosthesis persists. No acute fracture or dislocation is identified. The pubic symphysis and sacroiliac joints are not abnormally widened.. IMPRESSION: 1. Osteopenia degrades evaluation. No acute fracture or dislocation is identified. 2. Persistent severe degenerative change of the right hip. 3. Persistent left hip prosthesis. Electronically authenticated by: LYNNETTE CISNEROS Date: 2022-12-10 04:01 Normal [facility] XR KNEE RT 4V or >on 023 XR KNEE RT 4V or > EXAM: XR KNEE RT 4V or > HISTORY: Right knee Pain COMPARISON: None. TECHNIQUE: 4 views of the right knee are obtained. Computational Sciences Professor reports best imaging possible. FINDINGS: Evaluation is suboptimal secondary to patient rotation without true lateral projection obtained. No sizable effusion or focal soft tissue swelling. Osseous mineralization is mildly reduced. No acute fracture or dislocation is identified. Joint spaces appear grossly preserved. IMPRESSION: Suboptimal evaluation secondary to patient positioning. No acute fracture or dislocation identified. Electronically authenticated by: LYNNETTE CISNEROS Date: 2022-12-10 03:56 Normal [facility] XR TIB_FIB RT 2Von 3 XR TIB_FIB RT 2V EXAM: XR TIB_FIB RT 2V HISTORY: Right lower extremity Pain COMPARISON: None. TECHNIQUE: AP and lateral views of the tibia and fibula are obtained. FINDINGS: No focal soft tissue swelling, sizable knee joint or ankle joint effusion is identified. Osseous mineralization is reduced. No acute fracture or dislocation is identified. Joint spaces appear grossly maintained.. IMPRESSION: No acute fracture or dislocation. Osteopenia. Electronically authenticated by: LYNNETTE CISNEROS Date: 2022-12-10 04:04 Normal [facility] GLYCOHEMOGLOBIN A1Con 2022 ADA RECOMMENDATION SEE BELOW Normal [facility] Comment on above: Result Comment: ADA RECOMMENDED LIMIT 4.0 - 6.0 ADA THERAPEUTIC TARGET < 7.0 ACTION SUGGESTED > 7.0 Performed By: #### C VDTBH #### [facility] [address] [address] [address] Vito Bond Glucose [Mass/Vol] 237 mg/dL Normal [facility] Comment on above: Performed By: #### C VDTBH #### [facility] [address] [place], [place] [address] Dr. Vito Bond HbA1c (Bld) [Mass fraction] 9.9 % Critically high 4.5-6.2 [facility] Comment on above: Performed By: #### C VDTBH #### [facility] [address] [place], [place] [address] Dr. Vito Bond GLYCOHEMOGLOBIN A1Con 2021 ADA RECOMMENDATION SEE BELOW Normal [facility] Comment on above: Result Comment: ADA RECOMMENDED LIMIT 4.0 - 6.0 ADA THERAPEUTIC TARGET < 7.0 ACTION SUGGESTED > 7.0 Performed By: #### C BC #### [facility] [address] [place] [address] Dr. Vito Bond Glucose [Mass/Vol] 258 mg/dL Normal [facility] Comment on above: Performed By: #### C BC #### [facility] [address] [place] [address] Dr. Vito Bond HbA1c (Bld) [Mass fraction] 10.6 % Critically high 4.5-6.2 [facility] Comment on above: Performed By: #### C BC #### [facility] [address] [place] [address] Dr. Vito Bond PROF CHEM 8 (BAS METB)on Anion gap [Moles/Vol] 13.1 mmol/L Normal [facility] Comment on above: Performed By: #### C BC #### [facility] [address] [place] [address] Dr. Vito Bond Calcium [Mass/Vol] 8.8 mg/dL Normal 8.5-10.1 [facility] Comment on above: Performed By: #### C BC #### [facility] [address] [place] [address] Dr. Vito Bond Chloride [Moles/Vol] 99 mmol/L Normal 98-107 [facility] Comment on above: Performed By: #### C BC #### [facility] [address] [place] [address] Dr. Vito Bond CO2 [Moles/Vol] 28.3 mmol/L Normal 21.0-32.0 [facility] Comment on above: Performed By: #### C BC #### [facility] [address] [place] [address] Dr. Vito Bond Creatinine [Mass/Vol] 1.28 mg/dL Normal 0.70-1.30 [facility] Comment on above: Performed By: #### C BC #### [facility] [address] [place] [address] Dr. Vito Bond EGFR-AF ISRAELI >60 Normal >=60 [facility] Comment on above: Performed By: #### C BC #### [facility] [address] [place] [address] Dr. Vito Bond EGFR-NON AF ISRAELI 56 mL/min/1.73m2 Critically low >=60 [facility] Comment on above: Performed By: #### C BC #### [facility] [address] [address] [address] Vito Bond Glucose [Mass/Vol] 302 mg/dL Critically high 74-106 T [facility] Comment on above: Performed By: #### C BC #### [facility] [address] [place] [address] Dr. Vito Bond Potassium [Moles/Vol] 4.4 mmol/L Normal 3.5-5.1 [facility] Comment on above: Performed By: #### C BC #### [facility] [address] [place] [address] Dr. Vito Bond Sodium [Moles/Vol] 136 mmol/L Normal 136-145 [facility] Comment on above: Performed By: #### C BC #### [facility] [address] [place] [address] Dr. Vito Bond Urea nitrogen [Mass/Vol] 28.0 mg/dL Critically high 7.0-18.0 [facility] Comment on above: Performed By: #### C BC #### [facility] [address] [place] [address] Dr. Vito Bond Urea nitrogen/Creatinine [Mass ratio] 21.9 mg/mg Normal [facility] Comment on above: Performed By: #### C BC #### [facility] [address] [place] [address] Dr. Vito Villafuerte 06-25-2022 L - -------- Specimen: [id number] Received: 06/26/22 Status: KAYY Barrios Num: [id number] Spec Type: Surgical Subm Dr: Scott Lowe DO Tissues: A Debridement-Skin/Othe r Than Skin (LT HELIX) Procedures: HE Stain, Gross/Micro L3 -------- Age/ Patient Sex Location Account Attending Physician -------- Braxton Villasenor/M [place] [id number] Scott Lowe DO -------- SPEC NUM: [id number] RECD: 06/26/22 STATUS: KAYY BARRIOS NUM: [id number] SE: 06/25/22- SUBM DR: Scott Lowe DO ENTERED: 06/26/[address]: [facility] SPEC TYPE: Surgical DEPT: S ORDERED: HE Stain, Gross/Micro L3 ORDERED: HE Stain, Gross/Micro L3 Pathological Diagnosis Left ear, debridement: Skin with ulcer. Clinical Information Left helix wound Gross Description Received in formalin labeled with the patient's name, number and left ear wound debridement/skin biopsy is a 2.7 x 1.0 x 0.4 cm on oriented vincent white V-shaped skin which is inked and sectioned. Edge Bander Hand sections are submitted in one cassette labeled A1. Microscopic Description One glass slide with H E stained material has been examined. The microscopic findings support the above pathologic diagnosis. CPT Codes 62556 -------- -------- Specimen: [id number] Received: 06/26/22 Status: KAYY Barrios Num: [id number] Spec Type: Surgical Subm Dr: Scott Lowe DO Tissues: A Debridement-Skin/Othe r Than Skin (LT HELIX) Procedures: HE Stain, Gross/Micro L3 -------- Patient: Braxton Villasenor [id number] (Continued) -------- Signed (signature on file) Rachel Jenkins MD 06/27/22 [id number] CBC AUTO DIFFon 05-01-2022 BASO # 0.0 103/ul Normal 0.0-0.1 [facility] Comment on above: Performed By: #### C BC #### [facility] [address] [place] [address] Dr. Vito Bond Basophils/100 WBC (Bld) 0.3 % Normal 0.2-2.0 [facility] Comment on above: Performed By: #### C BC #### [facility] [address] [place] [address] Dr. Vito Bond EO # 0.1 103/ul Normal 0.0-0.7 [facility] Comment on above: Performed By: #### C BC #### [facility] [address] [place] [address] Dr. Vito Bond Eosinophils/100 WBC (Bld) 2.1 % Normal 0.9-7.0 [facility] Comment on above: Performed By: #### C BC #### [facility] [address] [place] [address] Dr. Vito Bond Erythrocyte distribution width (RBC) [Ratio] 13.8 % Normal 11.0-15.0 [facility] Comment on above: Performed By: #### C BC #### [facility] [address] [place] [address] Dr. Vito Bond Hematocrit (Bld) [Volume fraction] 39.1 % Critically low 42.0-54.0 [facility] Comment on above: Performed By: #### C BC #### [facility] [address] [place] [address] Dr. Vito Bond Hemoglobin (Bld) [Mass/Vol] 13.8 g/dL Critically low 14.0-18.0 [facility] Comment on above: Performed By: #### C BC #### [facility] [address] [place] [address] Dr. Vito Bond IG # 0.04 10e3/ul Critically high 0.00-0.03 [facility] Comment on above: Performed By: #### C BC #### [facility] [address] [place] [address] Dr. Vito Bond IG % 0.6 % Critically high 0.0-0.5 [facility] Comment on above: Performed By: #### C BC #### [facility] [address] [place] [address] Dr. Vito Bond LYMPH # 1.1 103/ul Critically low 1.2-3.8 [facility] Comment on above: Performed By: #### C BC #### [facility] [address] [place] [address] Dr. Vito Bond Lymphocytes/100 WBC (Bld) 16.5 % Critically low 20.5-60.0 [facility] Comment on above: Performed By: #### C BC #### [facility] [address] [place] [address] Dr. Vito Bond MANUAL DIFF REQ NO Normal [facility] Comment on above: Performed By: #### C BC #### [facility] [address] [place] [address] Dr. Vito Bond MCH (RBC) [Entitic mass] 28.8 pg Normal 25.9-34.0 [facility] Comment on above: Performed By: #### C BC #### [facility] [address] [place] [address] Dr. Vito Bond MCHC (RBC) [Mass/Vol] 35.3 g/dL Critically high 29.9-35.2 [facility] Comment on above: Performed By: #### C BC #### [facility] [address] [place] [address] Dr. Vito Bond MCV (RBC) [Entitic vol] 81.5 fL Normal 80.0-94.0 [facility] Comment on above: Performed By: #### C BC #### [facility] [address] [place] [address] Dr. Vito Bond MONO # 0.5 103/ul Normal 0.3-0.8 [facility] Comment on above: Performed By: #### C BC #### [facility] [address] [place] [address] Dr. Vito Bond Monocytes/100 WBC (Bld) 7.0 % Normal 1.7-12.0 [facility] Comment on above: Performed By: #### C BC #### [facility] [address] [place] [address] Dr. Vito Bond NEUT # 4.9 103/ul Normal 1.4-6.5 [facility] Comment on above: Performed By: #### C BC #### [facility] [address] [place] [address] Dr. Vito Bond Neutrophils/100 WBC (Bld) 73.5 % Normal 43.0-75.0 [facility] Comment on above: Performed By: #### C BC #### [facility] [address] [place] [address] Dr. Vito Bond Platelet mean volume (Bld) [Entitic vol] 9.5 fL Normal 9.5-13.5 [facility] Comment on above: Performed By: #### C BC #### [facility] [address] [place] [address] Dr. Vito Bond PLT 270 103/ul Normal 150-450 [facility] Comment on above: Performed By: #### C BC #### [facility] [address] [place] [address] Dr. Vito Bond RBC 4.80 106/ul Normal 4.70-6.10 [facility] Comment on above: Performed By: #### C BC #### [facility] [address] [place] [address] Dr. Vito Bond WBC 6.6 103/ul Normal 4.0-11.0 [facility] Comment on above: Performed By: #### C BC #### [facility] [address] [place] [address] Dr. Vito Bond GLYCOHEMOGLOBIN A1Con 2021 ADA RECOMMENDATION SEE BELOW Normal [facility] Comment on above: Result Comment: ADA RECOMMENDED LIMIT 4.0 - 6.0 ADA THERAPEUTIC TARGET < 7.0 ACTION SUGGESTED > 7.0 Performed By: #### A 1C #### [facility] [address] [place] [address] Dr. Vito Bond Glucose [Mass/Vol] 303 mg/dL Normal [facility] Comment on above: Performed By: #### A 1C #### [facility] [address] [place] [address] Dr. Vito Bond HbA1c (Bld) [Mass fraction] 12.2 % Critically high 4.5-6.2 [facility] Comment on above: Performed By: #### A 1C #### [facility] [address] [place] [address] Dr. Vito Bond PROF 14(COMP METB)on 022 Albumin [Mass/Vol] 3.5 g/dL Normal 3.4-5.0 [facility] Comment on above: Performed By: #### C MP #### [facility] [address] [place] [address] Dr. Vito Bond Albumin/Globulin [Mass ratio] 1.0 {ratio} Normal [facility] Comment on above: Performed By: #### C MP #### [facility] [address] [place] [address] Dr. Vito Bond ALP [Catalytic activity/Vol] 80 U/L Normal 46-116 [facility] Comment on above: Performed By: #### C MP #### [facility] [address] [place] [address] Dr. Vtio Bond ALT [Catalytic activity/Vol] 20 U/L Normal 16-63 [facility] Comment on above: Performed By: #### C MP #### [facility] [address] [place] [address] Dr. Vito Bond Anion gap [Moles/Vol] 12.8 mmol/L Normal [facility] Comment on above: Performed By: #### C MP #### [facility] [address] [address] [address] Vito Bond AST [Catalytic activity/Vol] 8 U/L Critically low 15-37 [facility] Comment on above: Performed By: #### C MP #### [facility] [address] [address] [address] Vito oBnd Bilirubin [Mass/Vol] 0.6 mg/dL Normal 0.2-1.0 [facility] Comment on above: Performed By: #### C MP #### [facility] [address] [address] [address] Vito Bond Calcium [Mass/Vol] 8.7 mg/dL Normal 8.5-10.1 [facility] Comment on above: Performed By: #### C MP #### [facility] [address] [address] [address] Vito Bond Chloride [Moles/Vol] 98 mmol/L Normal 98-107 [facility] Comment on above: Performed By: #### C MP #### [facility] [address] [address] [address] Vito Bond CO2 [Moles/Vol] 27.3 mmol/L Normal 21.0-32.0 [facility] Comment on above: Performed By: #### C MP #### [facility] [address] [address] [address] Vito Bond Creatinine [Mass/Vol] 1.19 mg/dL Normal 0.70-1.30 [facility] Comment on above: Performed By: #### C MP #### [facility] [address] [address] [address] Vito Bond EGFR-AF ISRAELI >60 Normal >=60 [facility] Comment on above: Performed By: #### C MP #### [facility] [address] [address] [address] Vito Bond EGFR-NON AF ISRAELI >60 Normal >=60 [facility] Comment on above: Performed By: #### C MP #### [facility] [address] [address] [address] Vito Bond Globulin (S) [Mass/Vol] 3.5 g/dL Normal [facility] Comment on above: Performed By: #### C MP #### [facility] [address] [address] [address] Vtio Bond Glucose [Mass/Vol] 431 mg/dL Critically high 74-106 T [facility] Comment on above: Performed By: #### C MP #### [facility] [address] [address] [address] Vito Bond Potassium [Moles/Vol] 4.1 mmol/L Normal 3.5-5.1 [facility] Comment on above: Performed By: #### C MP #### [facility] [address] [address] [address] Vito Bond Protein [Mass/Vol] 7.0 g/dL Normal 6.4-8.2 [facility] Comment on above: Performed By: #### C MP #### [facility] [address] [address] [address] Vito Bond Sodium [Moles/Vol] 134 mmol/L Critically low 136-145 [facility] Comment on above: Performed By: #### C MP #### [facility] [address] [address] [address] Vito Bond Urea nitrogen [Mass/Vol] 27.0 mg/dL Critically high 7.0-18.0 [facility] Comment on above: Performed By: #### C MP #### [facility] [address] [address] [address] Vito Bond Urea nitrogen/Creatinine [Mass ratio] 22.7 mg/mg Normal [facility] Comment on above: Performed By: #### C MP #### [facility] [address] [address] [address] Vito Bond PROF CHEM 8 (BAS METB)on Anion gap [Moles/Vol] 12.7 mmol/L Normal [facility] Comment on above: Performed By: #### B MP #### [facility] [address] [address] [address] Vito Bond Calcium [Mass/Vol] 8.5 mg/dL Normal 8.5-10.1 [facility] Comment on above: Performed By: #### B MP #### [facility] [address] [address] [address] Vito Bond Chloride [Moles/Vol] 99 mmol/L Normal 98-107 [facility] Comment on above: Performed By: #### B MP #### [facility] [address] [address] [address] Vito Bond CO2 [Moles/Vol] 28.5 mmol/L Normal 21.0-32.0 [facility] Comment on above: Performed By: #### B MP #### [facility] [address] [place] [address] Dr. Vito Bond Creatinine [Mass/Vol] 1.14 mg/dL Normal 0.70-1.30 [facility] Comment on above: Performed By: #### B MP #### [facility] [address] [address] [address] Vito Bond EGFR-AF ISRAELI >60 Normal >=60 [facility] Comment on above: Performed By: #### B MP #### [facility] [address] [place] [address] Dr. Vito Bond EGFR-NON AF ISRAELI >60 Normal >=60 [facility] Comment on above: Performed By: #### B MP #### [facility] [address] [address] [address] Vito Bond Glucose [Mass/Vol] 293 mg/dL Critically high 74-106 [facility] Comment on above: Performed By: #### B MP #### [facility] [address] [place] [address] Dr. Vito Bond Potassium [Moles/Vol] 4.2 mmol/L Normal 3.5-5.1 [facility] Comment on above: Performed By: #### B MP #### [facility] [address] [address] [address] Vito Bond Sodium [Moles/Vol] 136 mmol/L Normal 136-145 [facility] Comment on above: Performed By: #### B MP #### [facility] [address] [place], [place] [address] Dr. Vito Bond Urea nitrogen [Mass/Vol] 20.0 mg/dL Critically high 7.0-18.0 [facility] Comment on above: Performed By: #### B MP #### [facility] [id number] Vito Bond Urea nitrogen/Creatinine [Mass ratio] 17.5 mg/mg Normal [facility] Comment on above: Performed By: #### B MP #### [facility] [id number] Vito Bond XR FOOT JERARDO MIN 3 VIEWSon XR FOOT JERARDO MIN 3 VIEWS EXAM: XR FOOT JERARDO MIN 3 VIEWS HISTORY: Pain in lower limb COMPARISON: None. TECHNIQUE: Frontal, lateral, and oblique views of the bilateral feet. FINDINGS: Mineralization: Osteopenia. Bones: No acute fractures or dislocations. Joints: Mild to moderate first MTP osteophytosis bilaterally. Additional scattered degenerative findings throughout the interphalangeal joints. Soft Tissues: Unremarkable. IMPRESSION: No acute osseous abnormality. Electronically authenticated by: DALIA YANES Date: 2022-01-23 10:40 Normal [facility] Outside Recordson 09-16-2019 Outside Records [id number]#1 [facility] 0 Telemetry Strips [id number]#1 [facility] 9 Telemetry Strips [id number]#1 .00[facility] Coding Queryon 08-06-2019 Coding Query Denny Ortiz --- Please review your notes on this patient. You give as a diagnosis CA. I do not see where the patient has cancer but I do see where the patient has CAD. Please make any additions to the progress notes, consults, etc., if the diagnosis should be CAD. Thank you! [employer]ogo [employer] Consultant Ext [phone] [Electronically Signed on: 08/13/2019 07:19 EST] Niko Ortiz MD [Verified on: 08/13/2019 07:19 EST] Niko Ortiz MD [Transcribed on: 08/06/2019 09:12 EST] [facility] Coding Summaryon 08-06-2019 Coding Summary CODING DATE: 08/06/2019 [facility] STATUS: Home PAYOR: Medicare Grouper: 470 MS-DRG [employer] HIP AND KNEE JOINT REPLACEMENT OR REATTACHMENT OF LOWER EXTREMITY W/O GROUP HOME Low Trim 0 High Trim 999 ADMIT DX: M16.12 Unilateral primary osteoarthritis, left hip REASON FOR VISIT DX: FINAL DX: PRINCIPAL: M16.12 Y Unilateral primary osteoarthritis, left hip SECONDARY: I48.92 Y Unspecified atrial flutter E11.9 Y Type 2 diabetes mellitus without complications I25.10 Y Atherosclerotic heart disease of [place] coronary artery without angina pectoris I10 Y Essential (primary) hypertension 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 However, the narrative phrase printed from the coding software may appear abbreviated, or result in slightly different terminology. Revised Coded By: Gogo Avila Revised Date Saved: 08/06/2019 09:13 am Normal [facility] Medicare Messageon 9 Medicare Message [id number]#1 .00[facility] Provider Orderson 08-04-2019 Provider Orders [id number]#1 .00[facility] Consent Formson 08-03-2019 Consent Forms [id number]#1 .00[facility] Medication Managementon Medication Management [id number]#1 .00[facility] Telemetry Stripson 9 Telemetry Strips [id number]#1 .00[facility] .Auto Diff 108-02-2019 Auto [place] % 7 % Normal 09-[address] [facility] Comment on above: Performed By: #### 1 [id number] #### [facility] (DEFAULT) [address] [place] [address] Baso Abs# 0.0 x10 Normal 0.0-0.[address] [facility] Comment on above: Performed By: #### 1 [id number] #### [facility] (DEFAULT) [address] [place] [address] Basophils/100 WBC (Bld) 0.1 % Low 0.2-2.[address] [facility] Comment on above: Performed By: #### 1 [id number] #### [facility] (DEFAULT) [address] [place] [address]503 Eos Abs# 0.1 x10 Normal 0.0-0.[address] [facility] Comment on above: Performed By: #### 1 [id number] #### [facility] (DEFAULT) [address] [place] [address] Eosinophils/100 WBC (Bld) 1.3 % Normal 0.9-4.[address] [facility] Comment on above: Performed By: #### 1 [id number] #### [facility] (DEFAULT) [address] [place] [address] Lymphocytes (Bld) [#/Vol] 2.2 x10 Normal 1.3-2.[address] [facility] Comment on above: Performed By: #### 1 [id number] #### [facility] (DEFAULT) [address] [place] [address] 046[address] Lymphocytes/100 WBC (Bld) 29 % Normal 14-[address] [facility] Comment on above: Performed By: #### 1 [id number] #### [facility] (DEFAULT) [address] [place] [address] [place] Abs# 0.6 x10 Normal 0.0-0.[address] [facility] Comment on above: Performed By: #### 1 [id number] #### [facility] (DEFAULT) [address] [place] [address] 32487 Neut Abs# 4.8 x10 Normal 1.5-9.[address] [facility] Comment on above: Performed By: #### 1 [id number] #### [facility] (DEFAULT) [address] [place] [address] 35954 Neutrophils/100 WBC (Bld) 63 % Normal 44-[address] [facility] Comment on above: Performed By: #### 1 [id number] #### [facility] (DEFAULT) [address] [place] [address] 03563 CBC w/ Auto Diffon 9 Erythrocyte distribution width (RBC) [Ratio] 14.9 % Normal 11.5-15.[address] [facility] Comment on above: Performed By: #### 1 [id number] #### [facility] (DEFAULT) [address] [place] [address] 83142 Hematocrit (Bld) [Volume fraction] 32.0 % Low 34.8-51.9 [facility] [facility] Comment on above: Performed By: #### 1 [id number] #### [facility] (DEFAULT) [address] [place] [address] 45632 Hemoglobin (Bld) [Mass/Vol] 10.7 g/dL Low 11.8-17.[address] [facility] Comment on above: Performed By: #### 1 [id number] #### [facility] (DEFAULT) [address] [place] [address] 08483 Man Diff? Auto Normal [facility] Comment on above: Performed By: #### 1 [id number] #### [facility] (DEFAULT) [address] [place] [address] 11741 MCH (RBC) [Entitic mass] 28 pg Normal 24-[address] [facility] Comment on above: Performed By: #### 1 [id number] #### [facility] (DEFAULT) [address] [place] [address] 58591 MCHC (RBC) [Mass/Vol] 33 g/dL Normal 26-[address] [facility] Comment on above: Performed By: #### 1 [id number] #### [facility] (DEFAULT) [address] [place] [address] 02014 MCV (RBC) [Entitic vol] 84 fL Normal 81-[address] [facility] Comment on above: Performed By: #### 1 [id number] #### [facility] (DEFAULT) [address] [place] [address] 60152 Platelet mean volume (Bld) [Entitic vol] 9.5 fL Normal 6.3-10.[address] [facility] Comment on above: Performed By: #### 1 [id number] #### [facility] (DEFAULT) [address] [place] [address] 17150 Platelets (Bld) [#/Vol] 251 x10 Normal 138-[address] [facility] Comment on above: Performed By: #### 1 [id number] #### [facility] (DEFAULT) [address] [place] [address] 33828 RBC (Bld) [#/Vol] 3.79 x10 Normal 3.70-5.30 [facility] Comment on above: Performed By: #### 1 [id number] #### [facility] (DEFAULT) [address] [place] [address] 51727 WBC (Bld) [#/Vol] 7.6 x10 [facility] Comment on above: Performed By: #### 1 [id number] #### [facility] (DEFAULT) [address] [place] [address] 55404 Education Noteon 08-02-2019 Education Note Education Materials POST OPERATIVE TOTAL HIP DISCHARGE INTRUCTIONS Physical Therapy: -WBAT to operative hip -focus balance, transfers and steady gait. -use a walker -Do Not Do Active Hip Abduction Exercises On Either Hip -ok to do ROM on knee. SURGEON'S WRITTEN INSTRUCTIONS: Change dressing daily. When clean and dry for 2 days may leave open to air. Mehul hose (compression stockings) for 6 weeks Physical therapy as prescribed May shower, no tub bath. Do not rub/scrub incision. Wash gently Take Aspirin 325mg daily to prevent blood clots, coated or uncoated per patient preference. WHAT YOU SHOULD KNOW AFTER YOUR OPERATION: If you need pain pills, start before the pain becomes intense. Pain pills are frequently less upsetting to your stomach if you take them with food such as crackers or bread. If you have excessive or persistent pain, swelling, bleeding, nausea, vomiting or any other problems, you should first call your surgeon for advice. If you are unable to contact your surgeon, seek help from the emergency room. FOR THE PREVENTION OF DVT AFTER LOWER EXTREMITY SURGERY What is a DVT? There is always the risk of DVT after lower extremity surgery. DVT, or deep vein thrombosis, is a blood blot in a major vein that may partially or completely block the flow of blood. The clot occurs in the legs or pelvis, in areas where blood flow is slow, or in an injured blood vessel. DVT can be life-threatening should pieces of the clot break away and travel to the lungs. This is called pulmonary embolism What are the symptoms of DVT? The area affected by the blood clot may become swollen and painful, and possibly turn red as the normal flow of blood is blocked. You may also develop edema, which is the build up of fluid in the skin tissues surrounding the clot. If the clot is somewhere other than your leg, there may be no physical signs of DVT. If the clot breaks away and travels to your lungs, you may experience shortness of breath and chest pain. If this occurs you should call your doctor immediately or go to the emergency room. How can I prevent DVT? You should keep active. Moving the ankle and foot and bending the knee as tolerated when you are in bed and walking as tolerated. Take medication, especially the Aspirin, as prescribed by your doctor. What should I do if I think I have a DVT? You should call your doctor or go to the emergency room any time you have a sudden and unusual shortness of breath that is not related to exercise, exertion or anxiety. If you have swelling with redness and pain in your leg, you should call your doctor immediately. If there is concern then a test called ?Venous Doppler? can be done to rule of a DVT. Normal [facility] Extra Greenon 08-02-2019 Tube Collected Yes [facility] Comment on above: Performed By: #### 1 [id number] #### [facility] (DEFAULT) [address] [place] [address] Inpatient Patient Summaryon 08-02-2019 Inpatient Patient Summary [facility] [address] [place] [address] 6[address] Patient Discharge Instructions Name: BRAXTON VILLASENOR : 1950 Patient Address: [address] [place] [address] Primary Care Provider: Name: JOAQUÍN BURNS After you are discharged if you find you have any questions, please, call [phone] ext [phone] to speak to a nurse. Discharge Diagnosis: Primary localized osteoarthritis of left hip Prescription Information: If you have been given a prescription for narcotics, seek immediate medical attention if you have any difficulty breathing or any sudden status changes such as confusion and sleepiness. If you or anyone you know is experiencing suicidal thoughts, mental health, alcohol and/or drug addiction problems; contact the [facility] 25/03 Crisis Hotline -Text 4HDRS ua 129342. If you received any narcotics, sedation, or any other medication that causes drowsiness for the next 24 hours, unless otherwise directed: ? Do not drive a car. ? Do not operate machinery such as power tools, lawn mowers, drills, sewing machines, or stoves ? Avoid alcoholic beverages and drugs for allergies, nerves, or sleep ? Do not make important personal or business decisions or sign any legal documents [facility] would like to thank you for allowing us to assist you with your healthcare needs. The following includes patient education materials and information regarding your injury/illness. AUGUSTOPRO MengVIJAY IBARRA has been given the following list of follow-up instructions, prescriptions, and patient education materials: Follow-up Instructions With: Address: When: Les Linda [address] [place] [address], [address] [place], [place] Business (2) 08/13/2019 10:45 AM With: Address: When: JOAQUÍN BURNS [address] [place] [address] Business (1) Medications During the course of your visit, your medication list was updated with the most current information. The details of those changes are reflected below: Medications That Were Updated - Follow Below Instructions Other Medications Updated: amLODIPine (amLODIPine 10 mg oral tablet) 1 tab(s) Oral every day. Medications to Continue That Have Not Changed Other Medications amiodarone (amiodarone 200 mg oral tablet) 1 tab(s) Oral every day. apixaban (Eliquis 5 mg oral tablet) 1 tab(s) Oral 2 times a day. aspirin (aspirin 81 mg oral tablet) 1 tab(s) Oral every day. atorvastatin (atorvastatin 40 mg oral tablet) 1 tab(s) Oral every day. bumetanide (bumetanide 1 mg oral tablet) 1 tab(s) Oral 2 times a day. ferrous sulfate (ferrous sulfate 325 mg (65 mg elemental iron) oral delayed release tablet) 1 tab(s) Oral every day. gabapentin (gabapentin 100 mg oral capsule) 1 cap(s) Oral every day. insulin glargine (Lantus 100 units/mL subcutaneous solution) 30 unit(s) Subcutaneous once. metoprolol (metoprolol succinate 50 mg oral tablet, extended release) 1 tab(s) Oral every day. It is important to always keep an active list of medications available so that you can share with other providers and manage your medications appropriately. As an additional courtesy, we are also providing you with your final active medications list that you can keep with you. amiodarone (amiodarone 200 mg oral tablet) 1 tab(s) Oral every day. amLODIPine (amLODIPine 10 mg oral tablet) 1 tab(s) Oral every day. apixaban (Eliquis 5 mg oral tablet) 1 tab(s) Oral 2 times a day. aspirin (aspirin 81 mg oral tablet) 1 tab(s) Oral every day. atorvastatin (atorvastatin 40 mg oral tablet) 1 tab(s) Oral every day. bumetanide (bumetanide 1 mg oral tablet) 1 tab(s) Oral 2 times a day. ferrous sulfate (ferrous sulfate 325 mg (65 mg elemental iron) oral delayed release tablet) 1 tab(s) Oral every day. gabapentin (gabapentin 100 mg oral capsule) 1 cap(s) Oral every day. insulin glargine (Lantus 100 units/mL subcutaneous solution) 30 unit(s) Subcutaneous once. metoprolol (metoprolol succinate 50 mg oral tablet, extended release) 1 tab(s) Oral every day. Take only the medications listed above. Contact your doctor prior to taking any medications not on this list. Medication leaflets, if any, will display below Diet & Activity Patient Activity Level: Patient Diet: Patient Activity Restrictions: Patient education materials, if any, will display below POST OPERATIVE TOTAL HIP DISCHARGE INTRUCTIONS Physical Therapy: -WBAT to operative hip -focus balance, transfers and steady gait. -use a walker -Do Not Do Active Hip Abduction Exercises On Either Hip -ok to do ROM on knee. SURGEON'S WRITTEN INSTRUCTIONS: Change dressing daily. When clean and dry for 2 days may leave open to air. Mehul hose (compression stockings) for 6 weeks Physical therapy as prescribed May shower, no tub bath. Do not rub/scrub incision. Wash gently Take Aspirin 325mg daily to prevent blood clots, coated or uncoated per patient preference. WHAT YOU SHOULD KNOW AFTER YOUR OPERATION: If you need pain pills, start before the pain becomes intense. Pain pills are frequently less upsetting to your stomach if you take them with food such as crackers or bread. If you have excessive or persistent pain, swelling, bleeding, nausea, vomiting or any other problems, you should first call your surgeon for advice. If you are unable to contact your surgeon, seek help from the emergency room. FOR THE PREVENTION OF DVT AFTER LOWER EXTREMITY SURGERY What is a DVT? There is always the risk of DVT after lower extremity surgery. DVT, or deep vein thrombosis, is a blood blot in a major vein that may partially or completely block the flow of blood. The clot occurs in the legs or pelvis, in areas where blood flow is slow, or in an injured blood vessel. DVT can be life-threatening should pieces of the clot break away and travel to the lungs. This is called pulmonary embolism What are the symptoms of DVT? The area affected by the blood clot may become swollen and painful, and possibly turn red as the normal flow of blood is blocked. You may also develop edema, which is the build up of fluid in the skin tissues surrounding the clot. If the clot is somewhere other than your leg, there may be no physical signs of DVT. If the clot breaks away and travels to your lungs, you may experience shortness of breath and chest pain. If this occurs you should call your doctor immediately or go to the emergency room. How can I prevent DVT? You should keep active. Moving the ankle and foot and bending the knee as tolerated when you are in bed and walking as tolerated. Take medication, especially the Aspirin, as prescribed by your doctor. What should I do if I think I have a DVT? You should call your doctor or go to the emergency room any time you have a sudden and unusual shortness of breath that is not related to exercise, exertion or anxiety. If you have swelling with redness and pain in your leg, you should call your doctor immediately. If there is concern then a test called ?Venous Doppler? can be done to rule of a DVT. Viruses or Bacteria What?s got you sick? Antibiotics only treat bacterial infections. Viral illnesses cannot be treated with antibiotics. When an antibiotic is not prescribed, ask your healthcare professional for tips on how to relieve symptoms and feel better. Usual Cause Illness Viruses Bacteria Antibiotic Needed Cold/Runny Nose NO Bronchitis/Chest Cold (in otherwise healthy children and adults) NO Whooping Cough Yes Flu NO Strep Throat Yes Sore Throat (except strep) NO Fluid in the middle ear (otitis media with effusion) NO Urinary Tract Infection Yes Antibiotics Aren?t Always the Answer www.cdc.gov/getsmart GET SMART Know When Antibiotics Work [place] Department of Health and Human Services Centers for Disease Control and Prevention May 2014 [facility] Pharmacy Noteon 08-02-2019 Pharmacy Note Pt is a 68 Years yo MALE presenting with Diagnosis for this visit Unilateral primary osteoarthritis, left hip Counseled: Patient _ New Medications: ascorbic acid 500mg oral, dulcolax supp as needed, calcium 500 mg oral, cholecalciferol 2,000 IU oral, and oxycodone tablets Counseling Points Discussed: Indications., side effects and compliance. Handouts: Pharmacy/Pharmacist contact informationpharmacy medication record card, information about our retail pharmacy and the Meds to Beds program, and patient handouts about amiodarone, amlodipine, atorvastatin, aspirin, insulin, metoprolol, and insulin. Asessessment of patient/representativ e's response to counseling: Patient/don kee was engaged in counseling session and verbalized understanding _ Other Comments: Patient usually gets his prescriptions from [facility] in [place], but he may make a list of his meds and quantities and call our retail pharmacy to see if we have better prices [Electronically Signed on: 08/02/2019 11:25 EST] Nilda Aguayo [Verified on: 08/02/2019 11:25 EST] Nilda Aguayo [facility] Progress Note - Nurseon Progress Note - Nurse Talked to daughter on the phone and informed her of pt's FU apt. with Dr. Linda and reviewed the med. list. Adviced her to call with questions. [Electronically Signed on: 08/02/2019 18:58 EST] Sancho Jones RN [Verified on: 08/02/2019 18:58 EST] Sancho Jones RN [facility] Progress Note - Nurse Pt states he has a friend that will be staying with him an[facility] at [facility] called and message left per discharge instructions so that home therapy can be set up. [Electronically Signed on: 08/02/2019 18:14 EST] Indira Goldman RN [Verified on: 08/02/2019 18:14 EST] Indira Goldman RN Normal [facility] .Auto Diff 1on 08-01-2019 Auto [place] % 6 % Normal 1-[address] [facility] Comment on above: Performed By: #### 1 [id number] #### [facility] (DEFAULT) [address] [place] [address] Baso Abs# 0.0 x10 Normal 0.0-0.[address] [facility] Comment on above: Performed By: #### 1 [id number] #### [facility] (DEFAULT) [address] [place] [address] 43797 Basophils/100 WBC (Bld) 0.0 % Low 0.2-2.[address] [facility] Comment on above: Performed By: #### 1 [id number] #### [facility] (DEFAULT) [address] [place] [address] Eos Abs# 0.0 x10 Normal 0.0-0.[address] [facility] Comment on above: Performed By: #### 1 [id number] #### [facility] (DEFAULT) [address] [place] [address] Eosinophils/100 WBC (Bld) 0.1 % Low 0.9-4.[address] [facility] Comment on above: Performed By: #### 1 [id number] #### [facility] (DEFAULT) [address] [place] [address] 69635 Lymphocytes (Bld) [#/Vol] 0.9 x10 Low 1.3-2.[address] [facility] Comment on above: Performed By: #### 1 [id number] #### [facility] (DEFAULT) [address] [place] [address] 23618 Lymphocytes/100 WBC (Bld) 8 % Low 14-[address] [facility] Comment on above: Performed By: #### 1 [id number] #### [facility] (DEFAULT) [address] [place] [address] 25678 [place] Abs# 0.6 x10 Normal 0.0-0.[address] [facility] Comment on above: Performed By: #### 1 [id number] #### [facility] (DEFAULT) [address] [place] [address] Neut Abs# 9.3 x10 High 1.5-9.[address] [facility] Comment on above: Performed By: #### 1 [id number] #### [facility] (DEFAULT) [address] [place] [address] Neutrophils/100 WBC (Bld) 86 % Normal 44-[address] [facility] Comment on above: Performed By: #### 1 [id number] #### [facility] (DEFAULT) [address] [place] [address] CBC w/ Auto Diffon 9 Erythrocyte distribution width (RBC) [Ratio] 14.5 % Normal 11.5-15.[address] [facility] Comment on above: Performed By: #### 1 [id number] #### [facility] (DEFAULT) [address] [place] [address] Hematocrit (Bld) [Volume fraction] 34.0 % Low 34.8-51.[address] [facility] Comment on above: Performed By: #### 1 [id number], [id number], [id number] #### [facility] (DEFAULT) [address] [place] [address] Hemoglobin (Bld) [Mass/Vol] 11.4 g/dL Low 11.8-17.[address] [facility] Comment on above: Performed By: #### 1 [id number], [id number], [id number] #### [facility] (DEFAULT) [address] [place] [address] Man Diff? Auto Normal [facility] Comment on above: Performed By: #### 1 [id number], [id number], [id number] #### [facility] (DEFAULT) [address] [place] [address] MCH (RBC) [Entitic mass] 28 pg Normal 24-[address] [facility] Comment on above: Performed By: #### 1 [id number], [id number], [id number] #### [facility] (DEFAULT) [address] [place] [address] MCHC (RBC) [Mass/Vol] 34 g/dL Normal 26-[address] [facility] Comment on above: Performed By: #### 1 [id number], [id number], [id number] #### [facility] (DEFAULT) [address] [place] [address] MCV (RBC) [Entitic vol] 83 fL Normal 81-[address] [facility] Comment on above: Performed By: #### 1 [id number], [id number] #### [facility] (DEFAULT) [address] [place] [address] Platelet mean volume (Bld) [Entitic vol] 10.0 fL Normal 6.3-10.[address] [facility] Comment on above: Performed By: #### 1 [id number], [id number], [id number] #### [facility] (DEFAULT) [address] [place] [address] Platelets (Bld) [#/Vol] 284 x10 Normal 138-[address] [facility] Comment on above: Performed By: #### 1 [id number], [id number], [id number] #### [facility] (DEFAULT) [address] [place] [address] RBC (Bld) [#/Vol] 4.08 x10 Normal 3.70-5.30 [facility] Comment on above: Performed By: #### 1 [id number], [id number], [id number] #### [facility] (DEFAULT) [address] [place] [address] WBC (Bld) [#/Vol] 10.8 x10 High 3.5-10.5 [facility] Comment on above: Performed By: #### 1 [id number], [id number], [id number] #### [facility] (DEFAULT) [address] [place] [address] Extra Greenon 08-01-2019 Tube Collected Yes [facility] Comment on above: Performed By: #### 1 [id number], [id number], [id number] #### [facility] (DEFAULT) [address] [place] [address] Progress Note - Nurseon 07-05 Progress Note - Nurse Dr. Ortiz reports it is ok to SL IV. [Electronically Signed on: 08/01/2019 20:04 EST] Sancho Jones RN [Verified on: 08/01/2019 20:04 EST] Sancho Jones RN Normal [facility] .Auto Diff 1on 07-31-2019 Auto [place] % 1 % Normal 1-[address] [facility] Comment on above: Performed By: #### 1 [id number], [id number], [id number] #### [facility] (DEFAULT) [address] [place] [address] Baso Abs# 0.0 x10 Normal 0.0-0.[address] [facility] Comment on above: Performed By: #### 1 [id number], [id number], [id number] #### [facility] (DEFAULT) [address] [place] [address] Basophils/100 WBC (Bld) 0.0 % Low 0.2-2.[address] [facility] Comment on above: Performed By: #### 1 [id number], [id number], [id number] #### [facility] (DEFAULT) [address] [place] [address] Eos Abs# 0.0 x10 Normal 0.0-0.[address] [facility] Comment on above: Performed By: #### 1 [id number], [id number] #### [facility] (DEFAULT) [address] [place] [address] Eosinophils/100 WBC (Bld) 0.2 % Low 0.9-4.[address] [facility] Comment on above: Performed By: #### 1 [id number], [id number], [id number] #### [facility] (DEFAULT) [address] [place] [address] 15680 Lymphocytes (Bld) [#/Vol] 0.4 x10 Low 1.3-2.[address] [facility] Comment on above: Performed By: #### 1 [id number], [id number], [id number] #### [facility] (DEFAULT) [address] [place] [address] 38735 Lymphocytes/100 WBC (Bld) 4 % Low 14-[address] [facility] Comment on above: Performed By: #### 1 [id number], [id number], [id number] #### [facility] (DEFAULT) [address] [place] [address] 42357 [place] Abs# 0.1 x10 Normal 0.0-0.[address] [facility] Comment on above: Performed By: #### 1 [id number], [id number], [id number] #### [facility] (DEFAULT) [address] [place] [address] Neut Abs# 10.5 x10 High 1.5-9.[address] [facility] Comment on above: Performed By: #### 1 [id number], [id number], [id number] #### [facility] (DEFAULT) [address] [place] [address] 76084 Neutrophils/100 WBC (Bld) 95 % High 44-[address] [facility] Comment on above: Performed By: #### 1 [id number], [id number], [id number] #### [facility] (DEFAULT) [address] [place] [address] Anesthesia Noteon 07-31-2019 Anesthesia Note Patient: BRAXTON VILLASENOR Age: 68 years Sex: MALE : 1950 Associated Diagnoses: None Author: Cl Romero DO Preoperative Information Anesthesia history: Patient history: No difficult intubation, No malignant hyperthermia. Family history: No malignant hyperthermia, No prior anesthesia problems. Review of Systems Constitutional: Negative. Eye Ear/Nose/Mouth/Throat Respiratory: No shortness of breath, No cough. Cardiovascular: Cardiology note from this month reviewed. Stable CAD. A-flutter controlled with amiodarone. EF WNL on last check. Pt is asymptomatic. , No chest pain. Gastrointestinal: No heartburn. Genitourinary Endocrine: Negative. Musculoskeletal: Joint pain. Neurologic: Alert and oriented X4. Health Status Allergies: Allergic Reactions (All) No known allergies Current medications: Home Medications (10) Active amiodarone 200 mg oral tablet 200 mg = 1 tab(s), PO, Daily amLODIPine 10 mg oral tablet 10 mg = 1 tab(s), PO, Daily aspirin 81 mg oral tablet 81 mg = 1 tab(s), PO, Daily atorvastatin 40 mg oral tablet 40 mg = 1 tab(s), PO, Daily bumetanide 1 mg oral tablet 1 mg = 1 tab(s), PO, BID Eliquis 5 mg oral tablet 5 mg = 1 tab(s), PO, BID ferrous sulfate 325 mg (65 mg elemental iron) oral delayed release tablet 325 mg = 1 tab(s), PO, Daily gabapentin 100 mg oral capsule 100 mg = 1 cap(s), PO, Daily Lantus 100 units/mL subcutaneous solution 30 unit(s), SubQ, Once metoprolol succinate 50 mg oral tablet, extended release 50 mg = 1 tab(s), PO, Daily Problem list (past medical history): All Problems Arrhythmia / SNOMED CT 6691719887 / Confirmed Coronary artery disease / SNOMED CT 70046889 / Confirmed Diabetes / SNOMED CT 641163175 / Confirmed Hyperlipidemia / SNOMED CT 14902828 / Confirmed Neuropathy / SNOMED CT 9014267559 / Confirmed Resolved: Congestive heart failure / SNOMED CT 12991604 Resolved: DC (myocardial infarction) / SNOMED CT 48109831 Histories Family History: Alzheimers dementia Father Procedure history: Stented coronary artery (185264924). Appendectomy (113503286). Cataract surgery (5618440332). Comments: 07/06/2019 13:39 AISHA Guerrero RN, Edna james/gautam eyes Social History Electronic Cigarette/Vaping Assessment Electronic Cigarette Use: Never. Alcohol Assessment Use: Current. Beer, 1-2 times per year Tobacco Assessment Former smoker, quit more than 30 days ago Tobacco Use:. Substance Abuse Assessment Substance use: Never. . Social & Psychosocial Habits Alcohol 07/06/2019 Alcohol Use: Current Type: Beer Frequency: 1-2 times per year Substance Abuse 07/06/2019 Substance use: Never Tobacco 07/06/2019 Smoking tobacco use: Former smoker, quit more Electronic Cigarette/Vaping 07/06/2019 Electronic Cigarette Use: Never . Physical Examination VS/Measurements Vital Signs (last 24 hrs) Last Charted Heart Rate Peripheral 67 bpm (JUL 31 07:50) Resp Rate 18 br/min (JUL 31 07:50) SBP H 149mmHg (JUL 31 07:55) DBP H 96mmHg (JUL 31 07:55) SpO2 97 % (JUL 31 07:50) General: Alert and oriented, No acute distress. Airway: Mallampati classification: I (soft palate, fauces, uvula, pillars visible). Temporomandibular joint mobility: Good. Mouth: Dentures ( Upper and lower dentures ). Neck: Full range of motion. Respiratory: Lungs are clear to auscultation. Cardiovascular: Normal rate, Regular rhythm. Neurologic: Alert, Oriented. Review / Management Laboratory Results Plan [place] [employer]#( A) physical status classification: Class III. Anesthetic Preoperative Plan Anesthesia: General. . Anesthetic plan, risks, benefits, and alternatives discussed with the patient and/or family. Risks discussed: nausea, vomiting, sore throat, serious complications. Patient verbalized understanding. Family/Guardian present. Informed consent was given. Consent was signed by the patient. [Electronically Signed on: 07/31/2019 10:05 EST] Cl Romero DO [Verified on: 07/31/2019 10:05 EST] Cl Romero DO Normal [facility] CBC w/ Auto Diffon 9 Erythrocyte distribution width (RBC) [Ratio] 14.4 % Normal 11.5-15.[address] [facility] Comment on above: Performed By: #### 1 [id number], [id number], [id number] #### [facility] (DEFAULT) [address] [place] [address] Hematocrit (Bld) [Volume fraction] 35.8 % Normal 34.8-51.[address] [facility] Comment on above: Performed By: #### 1 [id number], [id number], [id number] #### [facility] (DEFAULT) [address] [place] [address] Hemoglobin (Bld) [Mass/Vol] 12.1 g/dL Normal 11.8-17.[address] [facility] Comment on above: Result Comment: Shanelle ent is post surgical. Performed By: #### 1 [id number], [id number], [id number] #### [facility] (DEFAULT) [address] [place] [address] Man Diff? Auto Normal [facility] Comment on above: Performed By: #### 1 [id number], [id number], [id number] #### [facility] (DEFAULT) [address] [place] [address] 67332 MCH (RBC) [Entitic mass] 28 pg Normal 24-[address] [facility] Comment on above: Performed By: #### 1 [id number], [id number], [id number] #### [facility] (DEFAULT) [address] [place] [address] 37687 MCHC (RBC) [Mass/Vol] 34 g/dL Normal 26-[address] [facility] Comment on above: Performed By: #### 1 [id number], [id number], [id number] #### [facility] (DEFAULT) [address] [place] [address] 55512 MCV (RBC) [Entitic vol] 83 fL Normal 81-[address] [facility] Comment on above: Performed By: #### 1 [id number], [id number], [id number] #### [facility] (DEFAULT) [address] [place] [address] 73608 Platelet mean volume (Bld) [Entitic vol] 9.6 fL Normal 6.3-10.[address] [facility] Comment on above: Performed By: #### 1 [id number], [id number], [id number] #### [facility] (DEFAULT) [address] [place] [address] Platelets (Bld) [#/Vol] 311 x10 Normal 138-[address] [facility] Comment on above: Performed By: #### 1 [id number], [id number], [id number] #### [facility] (DEFAULT) [address] [place] [address] 94679 RBC (Bld) [#/Vol] 4.30 x10 Normal 3.70-5.30 [facility] Comment on above: Performed By: #### 1 [id number], [id number], [id number] #### [facility] (DEFAULT) [address] [place] [address] 17743 WBC (Bld) [#/Vol] 11.0 x10 [facility] Comment on above: Performed By: #### 1 [id number], [id number], [id number] #### [facility] (DEFAULT) [address] [place] [address] 88263 Extra Greenon 07-31-2019 Tube Collected Yes [facility] Comment on above: Performed By: #### 1 [id number], [id number], [id number] #### [facility] (DEFAULT) [address] [place] [address] 23554 History and Physicalon 07-31 History and Physical [phone] 11 [id number] #[id number] Normal [facility] MAGR Intraoperative Recordon 07-31-2019 MAGR Intraoperative Record MAGR Intra-Op Record Summary Primary Physician: Les Linda DO Finalized Date/Time: 07/31/19 11:27:06 Pt. Name: BRAXTON VILLASENOR/Sex: 1950 MALE Med Rec #: [id number] Physician: Les Linda DO Financial #: [id number] Pt. Type: I Room/Bed: [facility]/ Admit/Disch: 07/31/19 07:03:57 - Institution: Case Times MAGR Entry 1 Patient In Room Time 07/31/19 09:20:00 Out Room Time 07/31/19 11:16:00 Anesthesia Start Time 07/31/19 09:20:00 Stop Time 07/31/19 11:16:00 Surgery Start Time 07/31/19 09:47:00 Stop Time 07/31/19 11:07:00 Last Modified By: Zina SPANN, Edna Merchant 07/31/19 11:23:27 Case Attendance MAGR Entry 1 Entry 2 Entry 3 Case Attendee Les Linda GARY DO Mueller, David DO Andrew DO Role Performed Surgeon - Primary Risk Tech Anesthesiologist of Record Time In 07/31/19 09:20:00 07/31/19 09:20:00 07/31/19 09:20:00 Time Out 07/31/19 10:46:00 07/31/19 11:16:00 07/31/19 11:16:00 Procedure Arthroplasty Hip Arthroplasty Hip Arthroplasty Hip Total(Left) Total(Left) Total(Left) Last Modified By: Zina RN, Edna Izaguirre RN, Edna Izaguirre RN, Edna Merchant 07/31/19 11:23:39 07/31/19 11:23:39 07/31/19 11:23:39 Entry 4 Entry 5 Entry 6 Case Attendee Zina SPANN, Katrina Stone RN, CST, Rachel Role Performed Clinical Services Specialist Scrub Personnel Scrub Personnel Time In 07/31/19 09:20:00 07/31/19 09:20:00 07/31/19 09:20:00 Time Out 07/31/19 11:16:00 07/31/19 11:16:00 07/31/19 11:16:00 Procedure Arthroplasty Hip Arthroplasty Hip Arthroplasty Hip Total(Left) Total(Left) Total(Left) Last Modified By: Zina SPANN, Edna Izaguirre RN, Edna Izaguirre RN, Edna Merchant 07/31/19 11:23:39 07/31/19 11:23:39 07/31/19 11:23:39 General Comments: DARIO HONG REP Surgical Procedures MAGR Pre-Care Text: A.20 Verifies operative procedure, surgical site, and laterality Im.150 Develops individualized plan of care Entry 1 Procedure Arthroplasty Hip Total Primary Procedure Yes Primary Surgeon Les Linda DO Surgeon Comment LEFT TOTAL HIP Start 07/31/19 09:47:00 Stop 07/31/19 11:07:00 Anesthesia Type General Surgical Service Orthopedics Wound Class Clean Technique Details Closure Technique Primary Entire procedure No was performed via laparoscope or robotic assistance Last Modified By: Edna Izaguirre RN 07/31/19 11:23:53 Post-Care Text: O.730 The patient's care is consistent with the individualized perioperative plan of care General Case Data MAGR Pre-Care Text: A.350.1 Classifies surgical wound Entry 1 Case Information OR MAGR OR 01 Case Level Level 5 Wound Class Clean Specialty Orthopedics ASA Class 3 Diagnosis Preop Diagnosis DJD LEFT HIP Postop Same As Preop Yes Postop Diagnosis DJD LEFT HIP Blunt or No Is the procedure No penetrating injury considered occured prior to Emergent/Urgent? the start of the procedure: Last Modified By: Edna Izaguirre RN 07/31/19 10:01:37 Post-Care Text: O.760 Patient receives consistent and comparable care regardless of the setting Time Out MAGR Entry 1 Time out date/time 07/31/19 09:46:00 All team members Yes have introduced themselves by name and role Surgeon, Yes Surgeon reviews Yes anesthesia, nurse critical or confirm patient, unexpected steps, site, procedure operative duration, anticipated blood loss Anesthesia team Yes Nursing team Yes reviews any reviews sterility patient-specific (including concerns indicator results) and equipment issues/concerns Antibiotic Antibiotic Yes Administration Time 09:30 prophylaxis given within the last 60 minutes Is essential N/A imaging displayed? Last Modified By: Edna Izaguirre RN 07/31/19 11:24:13 Patient Positioning MAGR Pre-Care Text: A.280 Identifies baseline musculoskeletal status Im.40 Positions the patient Im.80 Applies safety devices Entry 1 Procedure Arthroplasty Hip Body Position Lateral Total(Left) Left Arm Position Extended on padded arm Right Arm Position Extended board Left Leg Position Extended Right Leg Position Extended Feet Uncrossed? Yes Press Points Checked Yes Positioning Device Arm Boards, Arm Strap, Outcome Met (O.80) Yes Pillow, Peg Board Last Modified By: Edna Izaguirre RN 07/31/19 11:24:24 Post-Care Text: E.290 Evaluates musculoskeletal status O.80 Patient is free from signs and symptoms of injury related to positioning Skin Prep MAGR Pre-Care Text: A.30 Verifies allergies Im.270 Performs skin preparation Im.270.1 Implements protective measures to prevent skin and tissue injury due to chemical sources Entry 1 Skin Prep Syntegrity Prep Agents (Im.270) Chlorhexidine Gluconate Prep By Les Linda and Alcohol Zina Slater DO, RN, Cynthia M Prep Area (Im.270) Hip, Leg, Foot Prep Area Details Left Skin Prep Agent Dry Yes Without Pooling Hair Removal Syntegrity Hair Removal Methods No hair removal performed Outcome Met (O.100) Yes Last Modified By: Edna Izaguirre RN 07/31/19 11:24:55 Post-Care Text: E.10 Evaluates for signs and symptoms of physical injury to skin and tissue O.100 Patient is free from signs and symptoms of chemical injury Counts Verification MAGR Pre-Care Text: A.20 Verifies operative procedure, surgical site, and laterality A.20.2 Assesses the risk for unintended retained foreign body Im.20 Performs required counts Entry 1 Procedure Arthroplasty Hip Total(Left) Counts Verification Initial Counts Items included in Sponges, Sharps Initial Counts Manual the Initial Count Method Initial Counts Edna Izaguirre RN, Performed By Katrina Dent RN Counts Verification Final Counts Items Included in Sponges, Sharps Final Count Method Manual Final Count Final Count Status Correct Final Counts Edna Izaguirre RN, Performed By Katrina Dent RN Surgeon notified of Yes final counts status Outcome Met (O.20) Yes Last Modified By: Edna Izaguirre RN 07/31/19 11:25:16 Post-Care Text: E.50 Evaluates results of the surgical count O.20 Patient is free from unintended retained foreign objects Patient Care Devices MAGR Pre-Care Text: A.200 Assesses risk for normothermia regulation A.40 Verifies presence of prosthetics or corrective devices Im.280 Implements thermoregulation measures Im.60 Uses supplies and equipment within safe parameters Entry 1 Entry 2 Equipment Type FLOWTRON CALF CUFF REG FORCED WARM AIR UNIT Serial ?# [id number] Equipment Setting FACTORY DEFAULT 43C Last Modified By: Edna Izaguirre RN, RN, Cynthia M 07/31/19 09:58:05 07/31/19 09:58:05 Post-Care Text: E.10 Evaluates signs and symptoms of physical injury to skin and tissue O.700 Patient is free from signs and symptoms of injury caused by extraneous objects Cautery MAGR Pre-Care Text: A.240 Assesses baseline skin condition A.40 Verifies presence of prosthetics or corrective devices Im.50 Implements protective measures to prevent injury due to electrical sources Entry 1 ESU Type Electrosurgical Unit Identification [id number] Number ESU Settings Syntegrity Cut Setting 75 Coag Setting 75 Grounding Pad Details Grounding Pad Yes Verified By Edna Izaguirre RN Needed? Grounding Pad Site Table Grounding Pad Within Expiration Yes Date? Outcome Met (O.10) Yes Last Modified By: Edna Izaguirre RN 07/31/19 10:41:30 Post-Care Text: E.10 Evaluates for signs and symptoms of physical injury to skin and tissue O.10 Patient is free from signs and symptoms of injury related to thermal sources Medication Administration MAGR Pre-Care Text: A.210 Identifies physiological status Im.220 Administers prescribed medications Entry 1 Time Administered 07/31/19 10:37:00 Medication CLONIDINE 80MCG/0.8ML; KETOROLAC 30MG/ML; EPI 0.5MG/0.5ML; ROPIVACAINE 0.5% 60ML; NACL 0.95% 25ML Route of Admin SubQ Volume 55 mL By Les Linda Outcome Met (O.130) Yes Dalia DO Last Modified By: Edna Izaguirre RN 07/31/19 11:26:04 Post-Care Text: E.20 Evaluates response to medications O.130 Patient receives appropriately administered medication(s) Implant Log MAGR Pre-Care Text: A.20 Verifies operative procedure, surgical site, and laterality Im.350 Records implants inserted during the operative or invasive procedure Entry 1 Entry 2 Entry 3 Procedure Arthroplasty Hip Arthroplasty Hip Arthroplasty Hip Total(Left) Total(Left) Total(Left) Implant Action Implant Implant Implant Description JUANA BONE SCREW SELF JUANA BONE SCREW SELF JUANA SHELL WITH TAPPING TAPPING CLUSTER HOLES POROUS TRABECULAR METAL MODULAR ACETABULAR SYSTEM Implant Information Implant/Explant 07/31/19 10:11:00 07/31/19 10:13:00 07/31/19 10:15:00 Date/Time Implanted/Explanted Les Linda James Huddleston, Les By: Dalia Diaz DO Dalia KEEN Size 6.5MM DIAMETER 30MM 6.5MM DIAMETER 25MM 62MM LENGTH LENGTH Shoe Lining Fitter JUANA JUANA JUANA Catalog # Lot Number [id number] Expiration Date 12/30/28 03/01/29 12/30/24 Serial Number Device Identifier Human Readable SOHA Machine Readable SOHA MR Class Implant Usage Data Site Hip L Hip L Hip L Quantity 1 1 1 Reason for Explant Reason Not Retained Explant Disposition It Service Continuity Supervisor Sterility External Indicator Result Internal Indicator Results Outcome Met (O.30) Yes Yes Yes Last Modified By: Zina SPANN, Edna Izaguirre RN, Edna Puri RN 07/31/19 10:18:20 07/31/19 10:18:20 07/31/19 10:18:20 Entry 4 Entry 5 Entry 6 Procedure Arthroplasty Hip Arthroplasty Hip Arthroplasty Hip Total(Left) Total(Left) Total(Left) Implant Action Implant Implant Implant Description JUANA TRILOGY JUANA FITMORE HIP STEM JUANA VERSYS HIP ACETABULAR SYSTEM LINER UNCEMENTED SYSTEM FEMORAL HEAD STANDARD LONGEVITY 08/15 TAPER CROSSLINKED POLYETHYLENE Implant Information Implant/Explant 07/31/19 10:16:00 07/31/19 10:28:00 07/31/19 10:30:00 Date/Time Implanted/Explanted Les Linda James Huddleston, James By: Dalia Diaz DO Dalia DO Size 36MM ID 3.5MM OFFSET C/7, TAPER /14 36MM DIAMETER -3.5MM NECK LENGTH Shoe Lining Fitter JUANA JUANA JUANA Catalog # Lot Number [id number] Expiration Date 10/30/22 09/01/22 06/01/29 Serial Number Device Identifier Human Readable SOHA Machine Readable SOHA MR Class Implant Usage Data Site Hip L Hip L Hip L Quantity 1 1 1 Reason for Explant Reason Not Retained Explant Disposition It Service Continuity Supervisor Sterility External Indicator Result Internal Indicator Results Outcome Met (O.30) Yes Yes Yes Last Modified By: Zina SPANN, Edna Izaguirre RN, Edna Puri RN 07/31/19 10:18:20 07/31/19 10:32:21 07/31/19 10:32:21 Post-Care Text: E.30 Evaluates verification process for correct patient, site, side and level surgery O.30 Patient's procedure is performed on the correct site, side, and level Dressing/Packing MAGR Pre-Care Text: A.350 Assesses susceptibility for infection Im.290 Administer care to wound sites Entry 1 Skin Prep Agent Yes Site Hip Removed Prior to Dressing? Site Details Left Dressing Item Details Dressing Item 4x4's, ABD Tape (Im.290) Foam, Wound Closure (Im.290) Strip Outcome Met Yes Last Modified By: Edna Izaguirre RN 07/31/19 11:26:28 Post-Care Text: E.200 Evaluates progress of wound healing O.200 Patient's wound perfusion is consistent with or improved from baseline levels Departure from OR MAGR Entry 1 Present on Depart Oxygen Via Bed Post-op Destination PACU Skin DFO Condition Dry Description Condition Warm Description Report Given To Whit Guerrero RN Airway Maintenance Patient Status Stable Oxygen in Use? Yes Airway Device Simple mask Flow Rate 10 Last Modified By: Edna Izaguirre RN 07/31/19 11:26:57 Case Comments Finalized By: Edna Izaguirre RN Document Signatures Signed By: Edna Izaguirre RN 07/31/19 11:27 [facility] PACU Recordon [facility] PACU Record [facility] PACU Record Summary Primary Physician: Les Linda DO Finalized Date/Time: 07/31/19 12:36:52 Pt. Name: BRAXTON VILLASENORO.B./Sex: 1950 MALE Med Rec #: [id number] Physician: Les Linda DO Financial #: [id number] Pt. Type: I Room/Bed: 229/1 Admit/Disch: 07/31/19 07:03:57 - Institution: PACU Case Times MAGR Entry 1 In PACU I 07/31/19 11:18:00 Discharge from PACU 07/31/19 12:13:00 I Last Modified By: Whit Guerrero RN 07/31/19 12:36:45 General Comments: Patient discharged from PACU using discharge criteria per Dr. Cordova. Pt transferred to 229. Finalized By: Whit Guerrero RN Document Signatures Signed By: Whit Guerrero RN 07/31/19 12:36 [facility] 09-30-2018 MAGR Preoperative Record MAGR Pre-Op Record Summary Primary Physician: Les Linda DO Finalized Date/Time: 07/31/19 12:37:10 Pt. Name: BRAXTON VILLASENOR /Sex: 1950 MALE Med Rec #: [id number] Physician: Les Linda DO Financial #: [id number] Pt. Type: I Room/Bed: [facility]/ Admit/Disch: 07/31/19 07:03:57 - Institution: Pre-Op Case Times MAGR Pre-Care Text: Patient will be optimally prepared for surgery. Patient is free from s/s of injury. Provide information to patient/family related to plan of care. Verify patient allergies. Confirm identity and verify consent before the operative or invasive procedure. Entry 1 Patient Arrival Time 07/31/19 07:50:00 Preop Departure 07/31/19 09:19:00 Last Modified By: Whit Guerrero RN 07/31/19 12:37:07 Post-Care Text: Patient is prepared mentally and physically and is ready for surgery. The patient remains free from s/s of injury. Patient/family express understanding of plan of care and participate in decisions affecting his or her perioperrative plan of care. Allergies documented appropriately. Patient identifiers and consent correct. General Comments: Patient arrives via wheelchair. Patient denies any recent cold/flu symptoms, SOB, sleep apnea, or pacemaker. Patient is diabetic. Finalized By: Whit Guerrero RN Document Signatures Signed By: Whit Guerrero RN 07/31/19 12:37 [facility] Nutrition Noteon 07-31-2019 Nutrition Note chart reviewed; 68 y o male diagnosed with L charity; current diet order 2200 calories 2 gm Na (patient with history of CHF); encourage increase po as brandyn with glucerna 1.2 po BID added to max po post op; no weight changes noted; no difficulty with chew/swallow identified; patient currently appears at high nutrition risk with surgery and age greater than 65; will monitor po for cont adequacy, wt/labs for any changes; follow, assist prn. ts Normal [facility] Operative Report - Surgeon/P diana 07-31-2019 Operative Report - Surgeon/Physician Left hip fit more macro procedure: Left total hip arthroplasty utilizing the fit more prosthesis Pre Op Diagnosis: Osteoarthritis/degene rative joint disease left hip Post Op Dianosis: Same Surgeon: Fran Linda, trust operations assistant: Jean Pierre Do, Anesthesia: General Indication for Surgery: The patient had symptoms of osteoarthritis. The patient had failed conservative treatment. There were radiographic findings showing arthritic degenerative changes with subchondral sclerosis and irregularity of the hip joint narrowing of the joint space. Findings: Deficient articular surface with irregularity findings consistent with osteoarthritis/degene rative joint disease. Blood Loss: 100 Specimen: Bone Procedure Summary: After administration of anesthesia the patient was carefully positioned in the lateral decubitus position placing an axillary roll and taking care to pad and protect bony prominences neurovascular and fascial structures. The hip was sterilely prepped and draped in usual fashion and then a timeout was taken in the operating room. Incision was made over the greater trochanter dissection was carried down through the subcutaneous fat down to the fascial mary. The fascia mary was then incised and the Charnley retractor was placed underneath the fascial mary. The bursa was excised. The anterior one third of gluteus medius and minimus was detached from the greater trochanter. The capsule was then incised and the hip was dislocated. Femoral neck was cut with reciprocating saw referencing the angle of the cut off of the broach. The soft tissues within the socket were removed with the Bovie. Labrum was also excised. A caliper was used to estimate the diameter of the femoral head and then reaming was started at this diameter. Initially I medialized with the reamer. Then I reamed sequentially up to a size 62. Next a size 62 mm trabecular metal cup was impacted into place and it was secured with two acetabular screws. A standard liner was then clicked in the place and checked for integrity. Attention was then turned towards the femur. The canal was opened with a blade followed by a rat tail rasp. The starter broach was then utilized. Broaching was performed sequentially up to a size C7. Trial reductions were performed off of this. The hip was taken to extremes of range of motion including extension and external rotation as well as flexion internal rotation and abduction. Hip was noted to be stable. The leg lengths appeared to be symmetric. The soft tissues were well balanced. The broach and trial components were removed and then a fit more stem was impacted into place. It was snug and secure. A 36/-3.5 femoral head was impacted into place and checked for stability. The hip was reduced one more time taken through range of motion. The hip was stable in all planes. I then irrigated the wound with copious sterile saline and reattach the gluteus medius and minimus with a #5 Ethibond suture. I injected a total of 55 cc of joint mixture injection (ropivacaine, Toradol, epinephrine, clonidine, saline) the fascia mary was closed with interrupted 0 Vicryl sutures and 2 vicryl. The fat layer was closed with 0 Vicryl. The subcutaneous layer was closed with 0 Vicryl. A 3.0 Quill stitch was utilized to close the skin. Mastisol and Steri-Strips were applied. Sterile dressings were applied and the patient was transported off the operating table and to the recovery room in stable condition. Complications; none. [Electronically Signed on: 07/31/2019 11:27 EST] Les Linda DO [Verified on: 07/31/2019 11:27 EST] Les Linda DO [facility] XR Hip Complete Lefton 07-31 XR Hip Complete Left EXAM: XR Hip Comple te Left HISTORY: post-op total left hip COMPARISON: None. TECHNIQUE: Portable AP and crosstable lateral radiographs of the hip, left FINDINGS: Patient is status post left hip arthroplasty with 2 acetabular screws. No metallic fracture or evidence of loosening. No dislocation. No osseous fracture. Near-anatomic alignment. Air within the soft tissues. IMPRESSION: Postsurgical change of left hip arthroplasty without evidence of complication. Final Dictated by: MD Arauz Joseph J. Dictated DT/TM: 07/31/19 12:08 Signed (Electronic Signature): MD Arauz Joseph J. 07/31/19 12:09 p Technologist: BELL MALIK [facility] Patient Handouton 07-30-2019 Patient Handout POST OPERATIVE TOTAL HIP DISCHARGE INTRUCTIONS Physical Therapy: -WBAT to operative hip -focus balance, transfers and steady gait. -use a walker -Do Not Do Active Hip Abduction Exercises On Either Hip -ok to do ROM on knee. SURGEON'S WRITTEN INSTRUCTIONS: Change dressing daily. When clean and dry for 2 days may leave open to air. Mehul hose (compression stockings) for 6 weeks Physical therapy as prescribed May shower, no tub bath. Do not rub/scrub incision. Wash gently Take Aspirin 325mg daily to prevent blood clots, coated or uncoated per patient preference. WHAT YOU SHOULD KNOW AFTER YOUR OPERATION: If you need pain pills, start before the pain becomes intense. Pain pills are frequently less upsetting to your stomach if you take them with food such as crackers or bread. If you have excessive or persistent pain, swelling, bleeding, nausea, vomiting or any other problems, you should first call your surgeon for advice. If you are unable to contact your surgeon, seek help from the emergency room. FOR THE PREVENTION OF DVT AFTER LOWER EXTREMITY SURGERY What is a DVT? There is always the risk of DVT after lower extremity surgery. DVT, or deep vein thrombosis, is a blood blot in a major vein that may partially or completely block the flow of blood. The clot occurs in the legs or pelvis, in areas where blood flow is slow, or in an injured blood vessel. DVT can be life-threatening should pieces of the clot break away and travel to the lungs. This is called pulmonary embolism What are the symptoms of DVT? The area affected by the blood clot may become swollen and painful, and possibly turn red as the normal flow of blood is blocked. You may also develop edema, which is the build up of fluid in the skin tissues surrounding the clot. If the clot is somewhere other than your leg, there may be no physical signs of DVT. If the clot breaks away and travels to your lungs, you may experience shortness of breath and chest pain. If this occurs you should call your doctor immediately or go to the emergency room. How can I prevent DVT? You should keep active. Moving the ankle and foot and bending the knee as tolerated when you are in bed and walking as tolerated. Take medication, especially the Aspirin, as prescribed by your doctor. What should I do if I think I have a DVT? You should call your doctor or go to the emergency room any time you have a sudden and unusual shortness of breath that is not related to exercise, exertion or anxiety. If you have swelling with redness and pain in your leg, you should call your doctor immediately. If there is concern then a test called ?Venous Doppler? can be done to rule of a DVT. [facility] ABORhon 07-29-2019 ABO and Rh group Nom (d) Hx Check: Not Found Anti-A: 4+ Anti-B: 0 Anti-D: 0 DCon: NT A1: 0 B: 3+ ABORh Interp: A [facility] Comment on above: Performed By: #### 1 [id number], [id number], [id number] #### [facility] (DEFAULT) [address] [place] [address] ABORh Retypeon 07-29-2019 ABO and Rh group Nom (d) Ordered by Discern. Anti-A: 4+ Anti-B: 0 Anti-D: 0 DCon: NT A1: 0 B: 3+ ABORh Retype: A [facility] Comment on above: Performed By: #### 1 [id number], [id number], [id number] #### [facility] (DEFAULT) [address] [place] [address] 14038 ABSC Gelon 07-29-2019 ABSC Gel Negative [facility] Comment on above: Performed By: #### 1 [id number], [id number], [id number] #### [facility] (DEFAULT) [address] [place] [address] 37380 Blood Bank IDon 07-29-2019 Blood Bank ID BBID: [id number] [facility] Comment on above: Performed By: #### 1 [id number], [id number], [id number], [id number] #### [facility] (DEFAULT) [address] [place] [address] 25128 H&Hon 07-29-2019 Hematocrit (Bld) [Volume fraction] 41.5 % Normal 34.8-51.[address] [facility] Comment on above: Performed By: #### 5 [id number] #### [facility] (DEFAULT) [address] [place] [address] 06895 Hemoglobin (Bld) [Mass/Vol] 14.2 g/dL Normal 11.8-17.[address] [facility] Comment on above: Performed By: #### 5 [id number] #### [facility] (DEFAULT) [address] [place] [address] 20907 Progress Note - Nurseon 07-03 Progress Note - Nurse PAT surgery chart for 07-31-[address] Romero- no additional orders received. [Electronically Signed on: 07/21/2019 14:09 EST] Whit Guerrero RN [Verified on: 07/21/2019 14:09 EST] Whit Guerrero RN [facility] Progress Note - Nurseon Progress Note - Nurse PAT chart for 07/31/[address] Calix- requesting cardiac clearance prior to surgery- Mirta at Dr. Linda's office notified of request. [Electronically Signed on: 07/09/2019 12:40 EST] Whit Guerrero RN [Verified on: 07/09/2019 12:40 EST] Whit Guerrero RN [facility] Coding Summaryon 07-07-2019 Coding Summary CODING DATE: 07/07/2019 [facility] STATUS: Home PAYOR: Medicare APC DESCRIPTION 5733 Level 3 Minor Procedures ADMIT DX: REASON FOR VISIT DX: Z01.818 Encounter for other preprocedural examination E11.9 Type 2 diabetes mellitus without complications I10 Essential (primary) hypertension FINAL DX: PRINCIPAL: Z01.818 Encounter for other preprocedural examination SECONDARY: E11.9 Type 2 diabetes mellitus without complications I10 Essential (primary) hypertension PYMT PROC APC STAT DESCRIPTION DOCTOR NAME DATE NOTE: The code number assigned matches the documented diagnosis and / or procedure in the patient's chart. However, the narrative phrase printed from the coding software may appear abbreviated, or result in slightly different terminology. Coded By: Janey Matute Date Saved: 07/07/2019 01:34 pm [facility] Provider Orderson 07-07-2019 Provider Orders [id number] [facility] .Auto Diff 1on 07-06-2019 Auto [place] % 5 % Normal 1-[address] [facility] Comment on above: Performed By: #### 1 [id number], [id number], [id number] #### [facility] (DEFAULT) [address] [place] [address] 57459 Baso Abs# 0.0 x10 Normal 0.0-0.[address] [facility] Comment on above: Performed By: #### 1 [id number], [id number], [id number] #### [facility] (DEFAULT) [address] [place] [address] 87521 Basophils/100 WBC (Bld) 0.2 % Normal 0.2-2.[address] [facility] Comment on above: Performed By: #### 1 [id number], [id number], [id number] #### [facility] (DEFAULT) [address] [place] [address] 05637 Eos Abs# 0.1 x10 Normal 0.0-0.[address] [facility] Comment on above: Performed By: #### 1 [id number], [id number], [id number] #### [facility] (DEFAULT) [address] [place] [address] 10836 Eosinophils/100 WBC (Bld) 1.5 % Normal 0.9-4.[address] [facility] Comment on above: Performed By: #### 1 [id number], [id number], [id number] #### [facility] (DEFAULT) [address] [place] [address] 99938 Lymphocytes (Bld) [#/Vol] 1.7 x10 Normal 1.3-2.[address] [facility] Comment on above: Performed By: #### 1 [id number], [id number], [id number] #### [facility] (DEFAULT) [address] [place] [address] 77311 Lymphocytes/100 WBC (Bld) 20 % Normal 14-[address] [facility] Comment on above: Performed By: #### 1 [id number], [id number], [id number] #### [facility] (DEFAULT) [address] [place] [address] 63433 [place] Abs# 0.5 x10 Normal 0.0-0.[address] [facility] Comment on above: Performed By: #### 1 [id number], [id number], [id number] #### [facility] (DEFAULT) [address] [place] [address] 01833 Neut Abs# 6.3 x10 Normal 1.5-9.[address] [facility] Comment on above: Performed By: #### 1 [id number], [id number], [id number] #### [facility] (DEFAULT) [address] [place] [address] 02748 Neutrophils/100 WBC (Bld) 73 % Normal 44-[address] [facility] Comment on above: Performed By: #### 1 [id number], [id number], [id number] #### [facility] (DEFAULT) [address] [place] [address] 04625 BMP Standardon 07-06-2019 eGFR Non AA >[address] [facility] Comment on above: Performed By: #### 1 [id number], [id number], [id number] #### [facility] (DEFAULT) [address] [place] [address] 62735 eGFR AA >[address] [facility] Comment on above: Result Comment: Hot Saw Operator tiffany Kidney disease could be indicated at eGFRs of less than 60 ml/min/1.73m2. Kidney Failure is indicated at less than 15 ml/min/1.73m2 Performed By: #### 1 [id number], [id number], [id number] #### [facility] (DEFAULT) [address] [place] [address] 57861 Anion gap [Moles/Vol] 15.0 mmol/L Normal 5.0-19.[address] [facility] Comment on above: Performed By: #### 1 [id number], [id number], [id number] #### [facility] (DEFAULT) [address] [place] [address] 49125 Calcium [Mass/Vol] 9.2 mg/dL Normal 8.9-10.3 [facility] Comment on above: Performed By: #### 1 [id number], [id number], [id number] #### [facility] (DEFAULT) [address] [place] [address] 79733 Chloride [Moles/Vol] 106 mmol/L Normal 101-111 [facility] Comment on above: Performed By: #### 1 [id number], [id number], [id number] #### [facility] (DEFAULT) [address] [place] [address] 16706 CO2 [Moles/Vol] 25 mmol/L Normal 21-[address] [facility] Comment on above: Performed By: #### 1 [id number], [id number], [id number] #### [facility] (DEFAULT) [address] [place] [address] 75706 Creatinine [Mass/Vol] 1.15 mg/dL Normal 0.90-1.[address] [facility] Comment on above: Performed By: #### 1 [id number], [id number], 0356953 #### [facility] (DEFAULT) [address] [place] [address] 37458 Glucose [Mass/Vol] 162.0 mg/dL High 74.0-118.0 [facility] Comment on above: Performed By: #### 1 [id number], [id number], 7389025 #### [facility] (DEFAULT) [address] [place] [address] 07357 Osmolality [Osmolality] 294 mOsm/L [facility] Comment on above: Performed By: #### 1 [id number], [id number], [id number] #### [facility] (DEFAULT) [address] [place] [address] 10640 Potassium [Moles/Vol] 3.8 mmol/L Normal 3.6-5.[address] [facility] Comment on above: Performed By: #### 1 [id number], [id number], 9104835 #### [facility] (DEFAULT) [address] [place] [address] 37233 Sodium [Moles/Vol] 142.0 mmol/L Normal 136.0-144.0 [facility] Comment on above: Performed By: #### 1 [id number], [id number], 8658727 #### [facility] (DEFAULT) [address] [place] [address] Urea nitrogen [Mass/Vol] 32 mg/dL High 8-[address] [facility] Comment on above: Performed By: #### 1 [id number], [id number], [id number] #### [facility] (DEFAULT) [address] [place] [address] Urea nitrogen/Creatinine [Mass ratio] 28.0 mg/mg High 4.6-16.[address] [facility] Comment on above: Performed By: #### 1 [id number], [id number], 6981740 #### [facility] (DEFAULT) [address] [place] [address] CBC w/ Auto Diffon 9 Erythrocyte distribution width (RBC) [Ratio] 14.0 % Normal 11.5-15.[address] [facility] Comment on above: Performed By: #### 1 [id number], [id number], [id number] #### [facility] (DEFAULT) [address] [place] [address] Hematocrit (Bld) [Volume fraction] 37.5 % Normal 34.8-51.[address] [facility] Comment on above: Performed By: #### 1 [id number], [id number], 5845461 #### [facility] (DEFAULT) [address] [place] [address] 47341 Hemoglobin (Bld) [Mass/Vol] 12.9 g/dL Normal 11.8-17.[address] [facility] Comment on above: Performed By: #### 1 [id number], [id number], 1471470 #### [facility] (DEFAULT) [address] [place] [address] 19309 Man Diff? Auto Normal [facility] Comment on above: Performed By: #### 1 [id number], [id number], [id number] #### [facility] (DEFAULT) [address] [place] [address] 06406 MCH (RBC) [Entitic mass] 28 pg Normal 24-[address] [facility] Comment on above: Performed By: #### 1 [id number], [id number], [id number] #### [facility] (DEFAULT) [address] [place] [address] 95551 MCHC (RBC) [Mass/Vol] 34 g/dL Normal 26-[address] [facility] Comment on above: Performed By: #### 1 [id number], [id number], [id number] #### [facility] (DEFAULT) [address] [place] [address] 60543 MCV (RBC) [Entitic vol] 83 fL Normal 81-[address] [facility] Comment on above: Performed By: #### 1 [id number], [id number], [id number] #### [facility] (DEFAULT) [address] [place] [address] 77303 Platelet mean volume (Bld) [Entitic vol] 9.3 fL Normal 6.3-10.[address] [facility] Comment on above: Performed By: #### 1 [id number], [id number], [id number] #### [facility] (DEFAULT) [address] [place] [address] 29159 Platelets (Bld) [#/Vol] 372 x10 Normal 138-[address] [facility] Comment on above: Performed By: #### 1 [id number], [id number], [id number] #### [facility] (DEFAULT) [address] [place] [address] 89382 RBC (Bld) [#/Vol] 4.54 x10 Normal 3.70-5.30 [facility] Comment on above: Performed By: #### 1 [id number], [id number], [id number] #### [facility] (DEFAULT) [address] [place] [address] 87524 WBC (Bld) [#/Vol] 8.6 x10 Normal 3.5-10.5 [facility] Comment on above: Performed By: #### 1 [id number], [id number], [id number] #### [facility] (DEFAULT) [address] [place] [address] 46647 UA w Culture if Ind Standard on 07-06-2019 Breakpoint UA Normal [facility] Comment on above: Performed By: #### 1 [id number] #### [facility] (DEFAULT) [address] [place] [address] 97121 Color (U) Yellow [facility] Comment on above: Performed By: #### 1 [id number] #### [facility] (DEFAULT) [address] [place] [address] 87468 Culture? No Normal [facility] Comment on above: Performed By: #### 1 [id number] #### [facility] (DEFAULT) [address] [place] [address] 54119 Glucose (U) [Mass/Vol] Negative [facility] Comment on above: Performed By: #### 1 [id number] #### [facility] (DEFAULT) [address] [place] [address] 35484 Ketones Ql (U) Negative [facility] Comment on above: Performed By: #### 1 [id number] #### [facility] (DEFAULT) [address] [place] [address] 03103 Micro? Not Indicated [facility] Comment on above: Performed By: #### 1 [id number] #### [facility] (DEFAULT) [address] [place] [address] 54427 UA Bilirubin Negative Normal [facility] Comment on above: Performed By: #### 1 [id number] #### [facility] (DEFAULT) [address] [place] [address] 90854 UA Blood Negative Normal NEGATIVE [facility] Comment on above: Performed By: #### 1 [id number] #### [facility] (DEFAULT) [address] [place] [address] UA Clarity CLEAR Normal CLEAR [facility] Comment on above: Performed By: #### 1 [id number] #### [facility] (DEFAULT) [address] [place] [address] UA Leuk Est Negative Normal NEGATIVE [facility] Comment on above: Performed By: #### 1 [id number] #### [facility] (DEFAULT) [address] [place] [address] UA Nitrite Negative Normal NEGATIVE [facility] Comment on above: Performed By: #### 1 [id number] #### [facility] (DEFAULT) [address] [place] [address] UA pH 5.5 Normal 5-[address] [facility] Comment on above: Performed By: #### 1 [id number] #### [facility] (DEFAULT) [address] [place] [address] UA Protein Negative Normal NEGATIVE [facility] Comment on above: Performed By: #### 1 [id number] #### [facility] (DEFAULT) [address] [place] [address] UA Spec Grav 1.025 Normal 1.001-1.[address] [facility] Comment on above: Performed By: #### 1 [id number] #### [facility] (DEFAULT) [address] [place] [address] UA Urobilinogen 0.2 mg/dL Normal 0.2-1.[address] [facility] Comment on above: Performed By: #### 1 [id number] #### [facility] (DEFAULT) [address] [place] [address] 08886 Urine Source Clean Catch Normal [facility] Comment on above: Performed By: #### 1 [id number] #### [facility] (DEFAULT) [address] [place] [address] 78328 Interval History and Physion 08-21-2017 HIM IP Note OR Seal Delivery Vehicle Officer Normal [facility] History and Physicalon 08-20 HIM IP Note OR Seal Delivery Vehicle Officer Normal [facility] History and Physicalon 08-12 HIM IP Note OR Seal Delivery Vehicle Officer [facility] Interval History and Physion 08-12-2017 HIM IP Note OR Seal Delivery Vehicle Officer [facility] Vital Signs Date Time Vital Sign Value Performing Clinician Arnaldo foster 07-06-2024 10:47-0500 Blood Pressure Location Nanci GALICIA [facility] 07-06-2024 10:47-0500 Diastolic blood pressure 70 mm[Hg] Nanci GALICIA [facility] 07-06-2024 10:47-0500 Heart rate 89 /min Nanci GALICIA [facility] 07-06-2024 10:47-0500 Systolic blood pressure 100 mm[Hg] Nanci GALICIA [facility] 02-04-2024 14:17-0400 Blood Pressure Location Gordo CHAPA [facility] 02-04-2024 14:17-0400 Diastolic blood pressure 60 mm[Hg] Gordo QUIROZL [facility] 02-04-2024 14:17-0400 Heart rate 60 /min Gordo NILL [facility] 02-04-2024 14:17-0400 Respiratory rate 16 /min Gordo NILL [facility] 02-04-2024 14:17-0400 Systolic blood pressure 114 mm[Hg] Gordo NILL [facility] 12-27-2023 08:35-0400 Blood Pressure Location Quan Bowling [facility] 12-27-2023 08:35-0400 Diastolic blood pressure 80 mm[Hg] Quan Joannnus [facility] 12-27-2023 08:35-0400 Heart rate 60 /min Quan Joannnus [facility] 12-27-2023 08:35-0400 Respiratory rate 18 /min Quan Joannnus [facility] 12-27-2023 08:35-0400 SaO2% (BldA) [Mass fraction] 96 % Quan Joannnus [facility] 12-27-2023 08:35-0400 Systolic blood pressure 128 mm[Hg] Quan Joannnus [facility] 12-12-2023 11:39-0400 Diastolic blood pressure 87 mm[Hg] [facility] 12-12-2023 11:39-0400 Heart rate 104 /min [facility] 12-12-2023 11:39-0400 Systolic blood pressure 141 mm[Hg] [facility] 10-18-2023 14:08-0500 Diastolic blood pressure 82 mm[Hg] Denia Villa [facility] 10-18-2023 14:08-0500 Heart rate 62 /min Denia Villa [facility] 10-18-2023 14:08-0500 SaO2% (BldA) [Mass fraction] 80 % Denia Villa [facility] 10-18-2023 14:08-0500 Systolic blood pressure 132 mm[Hg] Denia Villa [facility] 07-05-2023 11:15-0400 Blood Pressure Location Nanci GALICIA [facility] 07-05-2023 11:15-0400 Diastolic blood pressure 60 mm[Hg] Nanci GALICIA [facility] 07-05-2023 11:15-0400 Heart rate 72 /min Nanci GALICIA [facility] 07-05-2023 11:15-0400 Respiratory rate 16 /min Nancikristian GALICIA [facility] 07-05-2023 11:15-0400 Systolic blood pressure 130 mm[Hg] Nancikristian GALICIA [facility] 04-06-2022 10:22-0400 Blood Pressure Location Nancikristian GALICIA [facility] 04-06-2022 10:22-0400 Diastolic blood pressure 89 mm[Hg] Nanci GALICIA [facility] 04-06-2022 10:22-0400 Heart rate 112 /min Nancikristian GALICIA [facility] 04-06-2022 10:22-0400 Respiratory rate 16 /min Nancikristian GALICIA [facility] 04-06-2022 10:22-0400 Systolic blood pressure 117 mm[Hg] Nanci GALICIA [facility] Encounters Encounter Date Encounter Type Care Provider Facility Start: 01-04-2025 ambulatory Renee Chavez Facility: [facility] Start: 08-04-2024 ambulatory PIANO BUILDER Renee Chavez Facil ity:[facility] Start: 07-09-2024 End: 07-09-2024 ambulatory PIANO BUILDER Renee L Scott Facility:[facility] [place] Start: 07-06-2024 ambulatory PIANO BUILDER Renee L Scott Facil ity:[id number] Start: 07-06-2024 End: 07-06-2024 ambulatory Nanci GALICIA Facility: [facility] Start: 07-06-2024 End: 07-06-2024 Patient encounter [facility] Start: 07-03-2024 End: 07-03-2024 ambulatory PIANO BUILDER Renee L Scott Facility:[facility] Start: 06-16-2024 End: 06-16-2024 [facility]ulatory [facility]ILDER [facility] Start: 04-30-2024 End: 04-30-2024 Lab Drop off Renee L Scott [facility] Start: 04-30-2024 End: 04-30-2024 ambulatory Renee L Scott [facility] Start: 04-02-2024 End: 04-02-2024 ambulatory Renee L Scott Facility:[facility] Start: 03-11-2024 End: 03-11-2024 ambulatory Gordo R RICHIEL Facility:[id number] Start: 02-04-2024 End: 02-04-2024 ambulatory Renee L Scott Facility:[facility] Start: 02-04-2024 End: 02-04-2024 Patient encounter procedure Gordo R NILL [facility] [place] Start: 01-15-2024 End: 01-15-2024 Lab Drop off Renee L Scott [facility] Start: 01-15-2024 End: 01-15-2024 ambulatory Renee L Scott [facility] Start: 01-10-2024 ambulatory Renee Scott Facility:[facility] Start: 01-06-2024 End: 01-06-2024 ambulatory Renee L Scott Facility:[facility] [place] Start: 12-30-2023 End: 12-30-2023 ambulatory Renee L Scott Facility:[facility] [place] Start: 12-27-2023 End: 12-27-2023 ambulatory XXXX NONE [place] Start: 12-27-2023 End: 12-27-2023 Patient encounter procedure Quan Bowling [facility] Start: 12-12-2023 End: 12-15-[facility] Start: 12-12-2023 End: 12-14-2023 Subsequent hospital visit by physician [facility] Stress Lab [facility] Comment on above: Arrived Start: 11-12-2023 End: 11-12-2023 ambulatory MADHU BYRD Not Available Start: 10-18-2023 End: 10-18-2023 ambulatory Renee L Scott [place] Start: 10-18-2023 End: 10-18-2023 Patient encounter procedure Denia Villa [facility] Start: 10-14-2023 End: 10-14-2023 ambulatory Renee L Scott [place] Start: 10-14-2023 End: 10-14-2023 Lab Drop off Renee L Scott [facility] Start: 10-14-2023 End: 10-14-2023 ambulatory Renee L Scott Facility:[facility] Start: 07-05-2023 End: 07-05-2023 Patient encounter procedure Nanci GALICIA [facility] Start: 05-21-2023 End: 05-21-2023 Lab Drop off Renee L Scott [facility] Start: 04-08-2023 End: 04-08-2023 Patient encounter procedure Nanci GALICIA [facility] Start: 12-10-2022 End: 12-11-2022 Evaluation and management of inpatient DR JOAQUÍN BURNS . Facility:[facility] Start: 10-29-2022 End: 10-30-[address] JOAQUÍN BURNS . Facility:[facility] Start: 07-24-2022 End: 07-25-[address] JOAQUÍN BURNS . Facility:[facility] Start: 06-25-2022 End: 06-25-[address] [facility] Work Phone: Start: 06-25-2022 End: 06-25-2022 Departed Referred DO Scott Lowe Work Phone: [facility] [place] Start: 05-01-2022 End: 05-02-[address] JOAQUÍN BURNS . Facility:[facility] Start: 04-06-2022 End: 04-06-2022 Patient encounter procedure Nanci GALICIA [facility] Start: 03-26-2022 End: 03-27-[address] NANCI GALICIA . Facility:[facility] Start: 01-23-2022 End: 01-23-[address] JOAQUÍN BURNS . Facility:[facility] Start: 08-21-2017 End: 08-21-2017 Ambulatory SH[facility]EL [facility] Start: 08-12-2017 End: 08-12-2017 Ambulatory SHMUEL Coronel [facility] Procedures Date Procedure Procedure Detail Performing Clinician Start: 12-12-2023 Myocardial spect mul tiple studies Denia Villa MD Start: 05-01-[address] JOAQUÍN DUENAST . Comment on above: Performed By: #### C BC #### [facility] [address] [address] [address] Vito Bond Start: 03-26-[address] JOAQUÍN FLORENTINO . Comment on above: Performed By: #### P SAD #### [facility] [address] [address] [address] Vito Bond Start: 08-21-2017 DISCHARGE PATIENT SHMUEL Start: 08-21-2017 FULL CODE Start: 08-21-2017 INITIATE OXYGEN THER APY PROTOCOL Start: 08-21-2017 NURSING COMMUNICATION W TAMIKA Start: 08-21-2017 VITAL SIGNS Start: 08-21-2017 DIET NPO, NOW SHMUEL CLAIRE G Start: 08-21-2017 INITIATE OXYGEN THER APY PROTOCOL Start: 08-21-2017 NURSING COMMUNICATION W TAMIKA Start: 08-21-2017 VITAL SIGNS Start: 08-21-2017 DIAGNOSIS FOR PROCEDURE Start: 08-21-2017 TREATMENT CONSENT Start: 08-21-2017 VERIFY INFORMED CONSENT Start: 08-12-2017 INITIATE OXYGEN THER APY PROTOCOL Start: 08-12-2017 DIAGNOSIS FOR PROCEDURE Start: 08-12-2017 DIET NPO, NOW SHMUEL CLAIRE G Start: 08-12-2017 FULL CODE SHMUEL Start: 08-12-2017 NURSING COMMUNICATION W TAMIKA Start: 08-12-2017 TREATMENT CONSENT Start: 08-12-2017 VERIFY INFORMED CONSENT Start: 08-12-2017 VITAL SIGNS Start: 09-19-2010 Excision of multiple scrotal sebaceous cysts Nanci GALICIA Cataract (disorder) Nanci GALICIA Catheterization of b oth left and right heart Nanci GALICIA Prosthetic arthropla sty of the hip Nanci GALICIA Plan of Treatment Date Care Activity Detail Author Start: 04-02-2024 Influenza vaccination Flu vacc ine (Season Ended) [facility] Start: 11-27-2023 Annual Wellness Visi t (Medicare) Annual Wellness Visit (Medicare) [facility] Start: 05-03-2023 COVID-19 Vaccine ( season) COVID-19 Vaccine ( season) [facility] Start: 2017 Abdominal aortic aneurysm screening AAA screen [facility] Start: 2017 Pneumococcal 65+ yea rs Vaccine (1 of 1 - PCV) Pneumococcal 65+ years Vaccine (1 of 1 - PCV) [facility] Start: 2012 Respiratory Syncytia l Virus (RSV) or age 60 yrs+ (1 - 1-dose 60+ series) Respiratory Syncytial Virus (RSV) or age 60 yrs+ (1 - 1-dose 60+ series) [facility] Start: 2002 Shingles vaccine (1 of 2) Shingles vaccine (1 of 2) [facility] Start: 1997 Screening for malign ant neoplasm of colon [facility] Start: 1971 DTaP/Tdap/Td vaccine (1 - Tdap) DTaP/Tdap/Td vaccine (1 - Tdap) [facility] Start: 1970 Hepatitis C screening Hepatitis C sc reen [facility] Start: 1964 Depression Screen Depression Screen [facility] Start: 1962 Lipid panel Lipids [facility] STRESS TEST REPORT STRESS TEST [facility] Ordered: 12/13/2023 [facility] Comment on above: Ordered: 12/13/2023 Immunizations Immunization Date Immunization Notes Care Provider Cristhian valdez 07-12-2022 influenza virus vaccine, unspecified formulation Nanci GALICIA [facility] 07-12-2022 SARS-CoV-2 (COVID-19 ) [id number] Nanci GALICIA [facility] 12-24-2020 SARS-CoV-2 (COVID-19 ) mRNA BNT-162b2 vax Nanci GALICIA [facility] 12-03-2020 SARS-CoV-2 (COVID-19 ) mRNA BNT-162b2 vax Nanci GALICIA [facility] 10-31-2020 SARS-CoV-2 (COVID-19 ) mRNA-1273 vaccine Nanci GALICIA [facility] 07-07-2019 influenza virus vaccine, unspecified formulation Nanci GALICIA [facility] Payers Date Payer Category Payer Self-pay 2016 Medicare [id number] 1959 Medicaid [id number] 1957 Medicare [id number] 1950 Unknown [id number] 2.16.84 0.1.038703.3.579.2.593 1952 Unknown [id number] 2.16.84 0.1.275647.3.579.2.593 1952 Unknown [id number] 2.16.84 0.1.372464.3.579.2.593 1952 Unknown [id number] 2.16.84 0.1.793837.3.579.2.593 1952 Unknown [id number] 2.16.84 0.1.302054.3.579.2.593 1952 Unknown [id number] 2.16.84 0.1.468611.3.579.2.593 1952 Unknown [id number] 2.16.84 0.1.770845.3.579.2.1259 1952 Unknown [id number] 2.16.8 40.1.519293.3.579.2.174 1952 Unknown [id number] 2.16.8 40.1.798081.3.579.2.174 1952 Unknown [id number] 2.16.8 40.1.907243.3.579.2.174 1952 Unknown [id number] 2.16.8 40.1.453057.3.579.2.174 1952 Unknown [id number] 2.16.8 40.1.899871.3.579.2.174 1952 Unknown [id number] 2.16.8 40.1.641616.3.579.2.727 1952 Unknown [id number] 2.16.8 40.1.369633.3.579.2.727 1952 Unknown [id number] 2.16.8 40.1.202882.3.579.2.727 1952 Unknown [id number] 2.16.8 40.1.203936.3.579.2.727 1952 Unknown [id number] 2.16.8 40.1.850886.3.579.2.727 1952 Unknown [id number] 2.16.8 40.1.516583.3.579.2.727 1952 Unknown [id number] 2.16.8 40.1.351795.3.579.2.727 1952 Unknown [id number] 2.16.8 40.1.132579.3.579.2.727 1952 Unknown [id number] 2.16.8 40.1.746114.3.579.2.727 1952 Unknown [id number] 2.16.8 40.1.248339.3.579.2.727 1952 Unknown [id number] 2.16.8 40.1.475265.3.579.2.727 1952 Unknown [id number] 2.16.8 40.1.778000.3.579.2.727 1952 Unknown [id number] 2.16.8 40.1.957941.3.579.2.727 1952 Unknown [id number] 2.16.8 40.1.677196.3.579.2.727 1952 Unknown [id number] 2.16.8 40.1.574332.3.579.2.727 1952 Unknown [id number] 2.16.8 40.1.029861.3.579.2.727 1952 Unknown [id number] 2.16.8 40.1.642322.3.579.2.727 1952 Unknown [id number] 2.16.8 40.1.266313.3.579.2.727 1952 Unknown [id number] 2.16.8 40.1.219413.3.579.2.727 1952 Unknown [id number] 2.16.8 40.1.034231.3.579.2.727 1952 Unknown [id number] 2.16.8 40.1.420184.3.579.2.727 Unknown [id number] 2.16.8 40.1.010275.3.579.2.531 Social History Date Type Detail Facility Start: 04-06-2022 End: 07-06-2024 Tobacco smoking status Ex-smoker (finding) [facility] Start: 04-01-2019 Sex Assigned At Male [facility] Start: 1950 Sex Assigned At Male F [facility] Tobacco smoking status Never [facility] End: 10-31-2016 History of tobacco use Current smoker [facility] End: 10-31-2016 History of tobacco use Cigarette Smoker [facility] Start: 08-12-2017 Tobacco use and exposure Smokeless tobacco non-user [facility] Start: 08-23-2017 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) [facility] Start: 04-01-2019 History of Social function [facility] Start: 1950 Sex Assigned At Not on file [facility] Medical Equipment Procedure Code Equipment Code Equipment Origin al Text Equipment Identifier Dates glucose test str ips, See Instructions, 100 EA, 0, check blood sugar 4 times per day, [id number], Supply, 188, cm, 10/14/23 13:27:00 EST, Height/Length Dosing, 114.7, kg, 10/14/23 13:27:00 EST, Weight Dosing Start: 10-18-2023 Lens Iol Li61ao 8.0d - [id number] Start: 08-12-2017 [id number] - [id number] Start: 08-21-2017 glucose test str ips, See Instructions, 100 EA, 0, check blood sugar 4 times per day, [facility] #[id number], Supply, 188, cm, 10/14/23 13:27:00 EST, Height/Length Dosing, 114.7, kg, 10/14/23 13:27:00 EST, Weight Dosing Start: 10-18-2023 glucose test str ips, See Instructions, 100 EA, 2, check blood sugar 4 times per day, [facility], Supply, 183, cm, 01/06/24 14:38:00 EDT, Height/Length Dosing, 113.5, kg, 01/06/24 14:38:00 EDT, Weight Dosing Start: 01-06-2024 lancets, See Instructions, 100 EA, 3, check blood sugar 4 times per day, [facility], Supply, 183, cm, 01/06/24 14:38:00 EDT, Height/Length Dosing, 113.5, kg, 01/06/24 14:38:00 EDT, Weight Dosing Start: 01-06-2024 glucose test str ips, See Instructions, 100 EA, 2, check blood sugar 4 times per day, [facility], Supply, 183, cm, 01/06/24 14:38:00 EDT, Height/Length Dosing, 113.5, kg, 01/06/24 14:38:00 EDT, Weight Dosing Start: 01-06-2024 lancets, See Instructions, 100 EA, 3, check blood sugar 4 times per day, [facility], Supply, 183, cm, 01/06/24 14:38:00 EDT, Height/Length Dosing, 113.5, kg, 01/06/24 14:38:00 EDT, Weight Dosing Start: 01-06-2024 glucose test str ips, See Instructions, 200 strip(s), 11, check blood sugar 4 times per day, [facility] #[id number], Supply, 183, cm, 02/04/24 14:23:00 EDT, Height/Length Dosing, 109, kg, 02/04/24 14:23:00 EDT, Weight Dosing Start: 03-04-2024 lancets, See Instructions, 200 lancet(s), 11, check blood sugar 4 times per day, [facility] #[id number], Supply, 183, cm, 02/04/24 14:23:00 EDT, Height/Length Dosing, 109, kg, 02/04/24 14:23:00 EDT, Weight Dosing Start: 03-04-2024 glucose test str ips, See Instructions, 200 strip(s), 11, check blood sugar 4 times per day E11.8, [facility], Supply, 183, cm, 04/30/24 14:19:00 EDT, Height/Length Dosing, 115.2, kg, 04/30/24 14:19:00 EDT, Weight Dosing Start: 06-05-2024 lancets, See Instructions, 200 lancet(s), 11, check blood sugar 4 times per day E11.8, [facility], Supply, 183, cm, 04/30/24 14:19:00 EDT, Height/Length Dosing, 115.2, kg, 04/30/24 14:19:00 EDT, Weight Dosing Start: 06-05-2024 Goals Date Patient Goal Desired Activity /State 07-06-2024 Functional Status Date Assessment Result Facility 07-06-2024 Functional Status N/A [facility] 02-04-2024 Functional Status N/A [facility] [place] 12-27-2023 Functional Status N/A [facility] 10-18-2023 Functional Status N/A [facility] 07-05-2023 Functional Status N/A [facility] 04-06-2022 Functional Status N/A [facility] Clinical Notes 04-06-2022 to 07-06-2024 Kavita Cooney RN - 12/12/2023 11:[address] RCP - 12/12/2023 11:00 AM [facility]atory[facility]atoryLaboratoryRadiologyLaboratoryRadiologyLaborator yRadiologyLaboratoryRadiology Note Date & Type Note Facility 07-06-2024 Hospital Discharge instructions Patient Education 07/06/2024 11:36:19 Benign Prostatic Hyperplasia Benign Prostatic Hyperplasia Benign prostatic hyperplasia (BPH) is an enlarged prostate gland that is caused by the normal aging process. The prostate may get bigger as a man gets older. The condition is not caused by cancer. The prostate is a walnut-sized gland that is involved in the production of semen. It is located in front of the rectum and below the bladder. The bladder stores urine. The urethra carries stored urine out of the body. An enlarged prostate can press on the urethra. This can make it harder to pass urine. The buildup of urine in the bladder can cause infection. Back pressure and infection may progress to bladder damage and kidney (renal) failure. What are the causes? This condition is part of the normal aging process. However, not all men develop problems from this condition. If the prostate enlarges away from the urethra, urine flow will not be blocked. If it enlarges toward the urethra and compresses it, there will be problems passing urine. What increases the risk? This condition is more likely to develop in men older than 50 years. What are the signs or symptoms? Symptoms of this condition include: Getting up often during the night to urinate. Needing to urinate frequently during the day. Difficulty starting urine flow. Decrease in size and strength of your urine stream. Leaking (dribbling) after urinating. Inability to pass urine. This needs immediate treatment. Inability to completely empty your bladder. Pain when you pass urine. This is more common if there is also an infection. Urinary tract infection (UTI). How is this diagnosed? This condition is diagnosed based on your medical history, a physical exam, and your symptoms. Tests will also be done, such as: A post-void bladder scan. This measures any amount of urine that may remain in your bladder after you finish urinating. A digital rectal exam. In a rectal exam, your health care provider checks your prostate by putting a lubricated, gloved finger into your rectum to feel the back of your prostate gland. This exam detects the size of your gland and any abnormal lumps or growths. An exam of your urine (urinalysis). A prostate specific antigen (PSA) screening. This is a blood test used to screen for prostate cancer. An ultrasound. This test uses sound waves to electronically produce a picture of your prostate gland. Your health care provider may refer you to a specialist in kidney and prostate diseases (urologist). How is this treated? Once symptoms begin, your health care provider will monitor your condition (active surveillance or watchful waiting). Treatment for this condition will depend on the severity of your condition. Treatment may include: Observation and yearly exams. This may be the only treatment needed if your condition and symptoms are mild. Medicines to relieve your symptoms, including: ?Medicines to shrink the prostate. ?Medicines to relax the muscle of the prostate. Surgery in severe cases. Surgery may include: ?Prostatectomy. In this procedure, the prostate tissue is removed completely through an open incision or with a laparoscope or robotics. ?Transurethral resection of the prostate (TURP). In this procedure, a tool is inserted through the opening at the tip of the penis (urethra). It is used to cut away tissue of the inner core of the prostate. The pieces are removed through the same opening of the penis. This removes the blockage. ?Transurethral incision (TUIP). In this procedure, small cuts are made in the prostate. This lessens the prostate's pressure on the urethra. ?Transurethral microwave thermotherapy (TUMT). This procedure uses microwaves to create heat. The heat destroys and removes a small amount of prostate tissue. ?Transurethral needle ablation (TUNA). This procedure uses radio frequencies to destroy and remove a small amount of prostate tissue. ?Interstitial laser coagulation (ILC). This procedure uses a laser to destroy and remove a small amount of prostate tissue. ?Transurethral electrovaporization (TUVP). This procedure uses electrodes to destroy and remove a small amount of prostate tissue. ?Prostatic urethral lift. This procedure inserts an implant to push the lobes of the prostate away from the urethra. Follow these instructions at home: Take vspq-rob-qwlhyul and prescription medicines only as told by your health care provider. Monitor your symptoms for any changes. Contact your health care provider with any changes. Avoid drinking large amounts of liquid before going to bed or out in public. Avoid or reduce how much caffeine or alcohol you drink. Give yourself time when you urinate. Keep all follow-up visits. This is important. Contact a health care provider if: You have unexplained back pain. Your symptoms do not get better with treatment. You develop side effects from the medicine you are taking. Your urine becomes very dark or has a bad smell. Your lower abdomen becomes distended and you have trouble passing urine. Get help right away if: You have a fever or chills. You suddenly cannot urinate. You feel light-headed or very dizzy, or you faint. There are large amounts of blood or clots in your urine. Your urinary problems become hard to manage. You develop moderate to severe low back or flank pain. The flank is the side of your body between the ribs and the hip. These symptoms may be an emergency. Get help right away. Call 911. Do not wait to see if the symptoms will go away. Do not drive yourself to the hospital. Summary Benign prostatic hyperplasia (BPH) is an enlarged prostate that is caused by the normal aging process. It is not caused by cancer. An enlarged prostate can press on the urethra. This can make it hard to pass urine. This condition is more likely to develop in men older than 50 years. Get help right away if you suddenly cannot urinate. This information is not intended to replace advice given to you by your health care provider. Make sure you discuss any questions you have with your health care provider. Document Revised: 03/07/2022 Document Reviewed: 03/07/2022 [employer] Patient Education 2023 [employer]. Follow Up Care 07/05/2023 12:42:18 With:GRAYSON CRAIG, aNnci Meng, URL Address: [facility] [address] , [place] [address]- When: Unknown [facility] 07-06-2024 Note Patient Education Urology Benign Prostatic Hyperplasia Benign prostatic hyperplasia (BPH) is an enlarged prostate gland that is caused by the normal aging process. The prostate may get bigger as a man gets older. The condition is not caused by cancer. The prostate is a walnut-sized gland that is involved in the production of semen. It is located in front of the rectum and below the bladder. The bladder stores urine. The urethra carries stored urine out of the body. An enlarged prostate can press on the urethra. This can make it harder to pass urine. The buildup of urine in the bladder can cause infection. Back pressure and infection may progress to bladder damage and kidney (renal) failure. What are the causes? This condition is part of the normal aging process. However, not all men develop problems from this condition. If the prostate enlarges away from the urethra, urine flow will not be blocked. If it enlarges toward the urethra and compresses it, there will be problems passing urine. What increases the risk? This condition is more likely to develop in men older than 50 years. What are the signs or symptoms? Symptoms of this condition include: ??? Getting up often during the night to urinate. ??? Needing to urinate frequently during the day. ??? Difficulty starting urine flow. ??? Decrease in size and strength of your urine stream. ??? Leaking (dribbling) after urinating. ??? Inability to pass urine. This needs immediate treatment. ??? Inability to completely empty your bladder. ??? Pain when you pass urine. This is more common if there is also an infection. ??? Urinary tract infection (UTI). How is this diagnosed? This condition is diagnosed based on your medical history, a physical exam, and your symptoms. Tests will also be done, such as: ??? A post-void bladder scan. This measures any amount of urine that may remain in your bladder after you finish urinating. ??? A digital rectal exam. In a rectal exam, your health care provider checks your prostate by putting a lubricated, gloved finger into your rectum to feel the back of your prostate gland. This exam detects the size of your gland and any abnormal lumps or growths. ??? An exam of your urine (urinalysis). ??? A prostate specific antigen (PSA) screening. This is a blood test used to screen for prostate cancer. ??? An ultrasound. This test uses sound waves to electronically produce a picture of your prostate gland. Your health care provider may refer you to a specialist in kidney and prostate diseases (urologist). How is this treated? Once symptoms begin, your health care provider will monitor your condition (active surveillance or watchful waiting). Treatment for this condition will depend on the severity of your condition. Treatment may include: ??? Observation and yearly exams. This may be the only treatment needed if your condition and symptoms are mild. ??? Medicines to relieve your symptoms, including: ? Medicines to shrink the prostate. ? Medicines to relax the muscle of the prostate. ??? Surgery in severe cases. Surgery may include: ? Prostatectomy. In this procedure, the prostate tissue is removed completely through an open incision or with a laparoscope or robotics. ? Transurethral resection of the prostate (TURP). In this procedure, a tool is inserted through the opening at the tip of the penis (urethra). It is used to cut away tissue of the inner core of the prostate. The pieces are removed through the same opening of the penis. This removes the blockage. ? Transurethral incision (TUIP). In this procedure, small cuts are made in the prostate. This lessens the prostate's pressure on the urethra. ? Transurethral microwave thermotherapy (TUMT). This procedure uses microwaves to create heat. The heat destroys and removes a small amount of prostate tissue. ? Transurethral needle ablation (TUNA). This procedure uses radio frequencies to destroy and remove a small amount of prostate tissue. ? Interstitial laser coagulation (ILC). This procedure uses a laser to destroy and remove a small amount of prostate tissue. ? Transurethral electrovaporization (TUVP). This procedure uses electrodes to destroy and remove a small amount of prostate tissue. ? Prostatic urethral lift. This procedure inserts an implant to push the lobes of the prostate away from the urethra. Follow these instructions at home: ??? Take zgic-vjy-xgyknvu and prescription medicines only as told by your health care provider. ??? Monitor your symptoms for any changes. Contact your health care provider with any changes. ??? Avoid drinking large amounts of liquid before going to bed or out in public. ??? Avoid or reduce how much caffeine or alcohol you drink. ??? Give yourself time when you urinate. ??? Keep all follow-up visits. This is important. Contact a health care provider if: ??? You have unexplained back pain. ??? Your symptoms do not get (more content not included)... [facility] 02-04-2024 Note Chief Complaint consultation for colonoscopy HPI Staff 73 year old male presents on consultation from Renee Chavez for screening colonoscopy. Denies abdominal or rectal pain. No rectal bleeding or change in bowel habits. Denies nausea or vomiting. No unexplained weight loss. Never had colonoscopy in the past. No known family history of colon cancer. Patient on Eliquis for a.fib. History of Present Illness 73 yo male with h/o atrial fibrillation, on Eliquis, cardiomyopathy, DMII, htn, hyperlipidemia, referred for colorectal screening; denies change in bms or blood in stools; no abdominal complaints; denies asa or NSAID use, on Eliquis daily, no SBE prophylaxis; no abdominal operations or previous colonoscopy; no fmhx of GI malignancy or IBD; no tobacco use. Review of Systems PHQ Score Initial Depression Screen Score: 0 SCORE ROS - Provider Constitutional: no fever, no sweats, no weight loss. Eyes: yes glasses, no blurred vision, no visual loss. ENMT: no dentures, no hoarseness, no swallowing difficulties, no hearing loss, no ear infection(s), no nose bleeds. Cardiovascular: normal blood pressure, no chest pain, regular heartbeat, no heart murmur. Respiratory: no shortness of breath, no cough, no asthma, no wheezing. Gastrointestinal: no nausea, no vomiting, no diarrhea, no constipation, no blood in stool, no change in bowel habits, no abdominal pain, no hepatitis. Genitourinary: no kidney stones, no urine infection, no dysuria. Musculoskeletal: no pain, yes weakness. Skin: no changing moles, no rash, no skin lumps. Neurologic: no seizures, no epilepsy, no headache. Psychiatric: no emotional or psychiatric problem. Heme/Lymph: no bleeding problems, no anemia, no blood clots, no transfusions. Allergy/Immunologic: no swollen lymph nodes/glands, no IV drug abuse. Other: Additional ROS info: Except as noted in the above Review of Systems and in the History of Present Illness, all other systems have been reviewed and are negative or noncontributory. Physical Exam Vitals & Measurements HR: 60(Peripheral) RR: 16 BP: 114/60 HT: 72 in HT: 183 cm WT: 109 kg WT: 239.8 lb BMI: 32.55 HEENT: normal conjunctiva, sclera clear, no scleral icterus, EOM intact, PERRLA, oral mucosa moist without lesions. Neck: trachea midline, no mass, symmetric, no thyromegaly or nodules, no adenopathy Respiratory: lungs expiratory wheezes, respirations non labored. Cardiovascular: regular rate and rhythm, no murmur, no pedal edema or varicosities. Gastrointestinal: obese, soft, non distended, no tenderness, no masses, no palpable hernias, diastasis recti yes, no hepatosplenomegaly; normal bs Lymphatic: no cervical adenopathy, no supraclavicular adenopathy. Musculoskeletal: abnormal gait, digits and nails without infection, nodes, cyanosis, clubbing. Skin: no rashes, no lesions, no ulcers, no subcutaneous nodules, induration. Psychiatric/Neuro: oriented to time, place, person, judgement normal, affect appropriate for age, insight intact, no focal deficits. Tests: , review of old records completed , Discussed surgical options, risks, and possible complications with patient. Assessment/Plan 1. Screening for malignant neoplasm of colon (Z12.11: Encounter for screening for malignant neoplasm of colon) plan colonoscopy under anesthesia, informed consent obtained. Follow-up No qualifying data available Problem List/Past Medical History Ongoing Able to mobilize using mobility aids Anticoagulated Atrial fibrillation BMI 32.0-32.9,adult BPH with urinary obstruction Cardiomyopathy Change in bowel function Decreased mobility Difficulty in walking Glucosuria Hyperlipidemia Hypertension Limited mobility Nocturia Obesity due to excess calories Screening for malignant neoplasm of colon Screening PSA (prostate specific antigen) Type 1 diabetes mellitus Urinary frequency Urinary urgency Historical Acute myocardial infarction Age related macular degeneration BPH - benign prostatic hyperplasia Chronic emphysema COPD - Chronic obstructive pulmonary disease History of kidney stone Hydronephrosis Hyperglycemia Hypertension Procedure/Surgical History Excision of multiple scrotal sebaceous cysts (09/19/2010), Cardiac catheterisation, combined right and left heart, Cataract, Hip replacement. Medications atorvastatin 40 mg Tab, 40 mg= 1 tab(s), Oral, Daily, 3 refills Basaglar KwikPen 100 units/mL subcutaneous solution, 20 unit(s), SubCutaneous, BID Basaglar KwikPen 100 units/mL subcutaneous solution, See Instructions, 11 refills blood glucose monitor, See Instructions bumetanide, See Instructions, Not taking bumetanide 1 mg Tab, See Instructions, 3 refills DM shoes, See Instructions Eliquis 5 mg oral tablet, 5 mg= 1 tab(s), Oral, BID, 3 refills Farxiga 5 mg oral tablet, 5 mg= 1 tab(s), Oral, Daily, Not taking: need refill Farxiga 5 mg oral tablet, See Instructions, 3 refills gabapentin 100 mg (more content not included)... [facility] Comment on above: Result Comment: Elec tronically Signed By: SAMMI CRAIG, Gordo Love.j carlos\Date and Time Signed: 02/04/24 14:48 EDT 12-12-2023 History of Present illness Narrative 1120 - Pt here for Lexiscan. Pt states he has no idea what medications he takes every day. States his daughter takes care of his medications and he lost the list that he used to have. Unable to verify med rec with patient. Pt also noted to be in A-fib, not aware if he has a history of A-fib or if he has ever been in A-fib in the past. Pt very poor historian. EKG given to Dr Taylor.Okay to proceed with Lexiscan. 1132 - Lexiscan started. Has no complaints 1133 - Continues to tolerate well, no complaints 1135 - Tolerating well, continues to be in A-Fib 1139 - Lexiscan completed. Pt brandyn procedure well, snack and beverage provided. Initial EKG shown to Dr. Taylor prior to beginning stress test. Verbal OK to begin stress test. documented in this encounter [facility] 07-05-2023 Hospital Discharge instructions Patient Education 07/05/2023 12:33:42 Prostate Cancer Screening Prostate Cancer Screening Prostate cancer screening is testing that is done to check for the presence of prostate cancer in men. The prostate gland is a walnut-sized gland that is located below the bladder and in front of the rectum in males. The function of the prostate is to add fluid to semen during ejaculation. Prostate cancer is one of the most common types of cancer in men. Who should have prostate cancer screening? Screening recommendations vary based on age and other risk factors, as well as between the professional organizations who make the recommendations. In general, screening is recommended if: You are age 50 to 70 and have an average risk for prostate cancer. You should talk with your health care provider about your need for screening and how often screening should be done. Because most prostate cancers are slow growing and will not cause , screening in this age group is generally reserved for men who have a 10- to 15-year life expectancy. You are younger than age 50, and you have these risk factors: ?Having a father, brother, or uncle who has been diagnosed with prostate cancer. The risk is higher if your family member's cancer occurred at an early age or if you have multiple family members with prostate cancer at an early age. ?Being a male who is Black or is of Jesus or sub-Saharan descent. In general, screening is not recommended if: You are younger than age 40. You are between the ages of 40 and 49 and you have no risk factors. You are 70 years of age or older. At this age, the risks that screening can cause are greater than the benefits that it may provide. If you are at high risk for prostate cancer, your health care provider may recommend that you have screenings more often or that you start screening at a younger age. How is screening for prostate cancer done? The recommended prostate cancer screening test is a blood test called the prostate-specific antigen (PSA) test. PSA is a protein that is made in the prostate. As you age, your prostate naturally produces more PSA. Abnormally high PSA levels may be caused by: Prostate cancer. An enlarged prostate that is not caused by cancer (benign prostatic hyperplasia, or BPH). This condition is very common in older men. A prostate gland infection (prostatitis) or urinary tract infection. Certain medicines such as male hormones (like testosterone) or other medicines that raise testosterone levels. A rectal exam may be done as part of prostate cancer screening to help provide information about the size of your prostate gland. When a rectal exam is performed, it should be done after the PSA level is drawn to avoid any effect on the results. Depending on the PSA results, you may need more tests, such as: A physical exam to check the size of your prostate gland, if not done as part of screening. Blood and imaging tests. A procedure to remove tissue samples from your prostate gland for testing (biopsy). This is the only way to know for certain if you have prostate cancer. What are the benefits of prostate cancer screening? Screening can help to identify cancer at an early stage, before symptoms start and when the cancer can be treated more easily. There is a small chance that screening may lower your risk of dying from prostate cancer. The chance is small because prostate cancer is a slow-growing cancer, and most men with prostate cancer from a different cause. What are the risks of prostate cancer screening? The main risk of prostate cancer screening is diagnosing and treating prostate cancer that would never have caused any symptoms or problems. This is called overdiagnosisand overtreatment. PSA screening cannot tell you if your PSA is high due to cancer or a different cause. A prostate biopsy is the only procedure to diagnose prostate cancer. Even the results of a biopsy may not tell you if your cancer needs to be treated. Slow-growing prostate cancer may not need any treatment other than monitoring, so diagnosing and treating it may cause unnecessary stress or other side effects. Questions to ask your health care provider When should I start prostate cancer screening? What is my risk for prostate cancer? How often do I need screening? What type of screening tests do I need? How do I get my test results? What do my results mean? Do I need treatment? Where to find more information The [employer]: www.cancer.org [employer]: www.auanet.org Contact a health care provider if: You have difficulty urinating. You have pain when you urinate or ejaculate. You have blood in your urine or semen. You have pain in your back or in the area of your prostate. Summary Prostate cancer is a common type of cancer in men. The prostate gland is located below the bladder and in front of the rectum. This gland adds fluid to semen during ejaculation. Prostate cancer screening may identify cancer at an early stage, when the cancer can be treated more easily and is less likely to have spread to other areas of the body. The prostate-specific antigen (PSA) test is the recommended screening test for prostate cancer, but it has associated risks. Discuss the risks and benefits of prostate cancer screening with your health care provider. If you are age 70 or older, the risks that screening can cause are greater than the benefits that it may provide. This information is not intended to replace advice given to you by your health care provider. Make sure you discuss any questions you have with your health care provider. Document Revised: 02/12/2022 Document Reviewed: 02/12/2022 [employer] Patient Education 2022 [employer]ek. Follow Up Care 05/03/2023 11:02:49 With:Nanci GALICIA MD, URL Address: [address] [place] [id number]- When: Unknown [facility] 04-06-2022 Hospital Discharge instructions Follow Up Care 04/06/2022 10:56:32 With:Nanci GALICIA MD, URL Address: [facility] [address] [place] [phone] When: Unknown [facility] 04-06-2022 Hospital Discharge instructions Patient Education 04/06/2022 10:53:16 Benign Prostatic Hyperplasia Benign Prostatic Hyperplasia Benign prostatic hyperplasia (BPH) is an enlarged prostate gland that is caused by the normal aging process and not by cancer. The prostate is a walnut-sized gland that is involved in the production of semen. It is located in front of the rectum and below the bladder. The bladder stores urine and the urethra is the tube that carries the urine out of the body. The prostate may get bigger as a man gets older. An enlarged prostate can press on the urethra. This can make it harder to pass urine. The build-up of urine in the bladder can cause infection. Back pressure and infection may progress to bladder damage and kidney (renal) failure. What are the causes? This condition is part of a normal aging process. However, not all men develop problems from this condition. If the prostate enlarges away from the urethra, urine flow will not be blocked. If it enlarges toward the urethra and compresses it, there will be problems passing urine. What increases the risk? This condition is more likely to develop in men over the age of 50 years. What are the signs or symptoms? Symptoms of this condition include: Getting up often during the night to urinate. Needing to urinate frequently during the day. Difficulty starting urine flow. Decrease in size and strength of your urine stream. Leaking (dribbling) after urinating. Inability to pass urine. This needs immediate treatment. Inability to completely empty your bladder. Pain when you pass urine. This is more common if there is also an infection. Urinary tract infection (UTI). How is this diagnosed? This condition is diagnosed based on your medical history, a physical exam, and your symptoms. Tests will also be done, such as: A post-void bladder scan. This measures any amount of urine that may remain in your bladder after you finish urinating. A digital rectal exam. In a rectal exam, your health care provider checks your prostate by putting a lubricated, gloved finger into your rectum to feel the back of your prostate gland. This exam detects the size of your gland and any abnormal lumps or growths. An exam of your urine (urinalysis). A prostate specific antigen (PSA) screening. This is a blood test used to screen for prostate cancer. An ultrasound. This test uses sound waves to electronically produce a picture of your prostate gland. Your health care provider may refer you to a specialist in kidney and prostate diseases (urologist). How is this treated? Once symptoms begin, your health care provider will monitor your condition (active surveillance or watchful waiting). Treatment for this condition will depend on the severity of your condition. Treatment may include: Observation and yearly exams. This may be the only treatment needed if your condition and symptoms are mild. Medicines to relieve your symptoms, including: ?Medicines to shrink the prostate. ?Medicines to relax the muscle of the prostate. Surgery in severe cases. Surgery may include: ?Prostatectomy. In this procedure, the prostate tissue is removed completely through an open incision or with a laparoscope or robotics. ?Transurethral resection of the prostate (TURP). In this procedure, a tool is inserted through the opening at the tip of the penis (urethra). It is used to cut away tissue of the inner core of the prostate. The pieces are removed through the same opening of the penis. This removes the blockage. ?Transurethral incision (TUIP). In this procedure, small cuts are made in the prostate. This lessens the prostate's pressure on the urethra. ?Transurethral microwave thermotherapy (TUMT). This procedure uses microwaves to create heat. The heat destroys and removes a small amount of prostate tissue. ?Transurethral needle ablation (TUNA). This procedure uses radio frequencies to destroy and remove a small amount of prostate tissue. ?Interstitial laser coagulation (ILC). This procedure uses a laser to destroy and remove a small amount of prostate tissue. ?Transurethral electrovaporization (TUVP). This procedure uses electrodes to destroy and remove a small amount of prostate tissue. ?Prostatic urethral lift. This procedure inserts an implant to push the lobes of the prostate away from the urethra. Follow these instructions at home: Take [id number] and prescription medicines only as told by your health care provider. Monitor your symptoms for any changes. Contact your health care provider with any changes. Avoid drinking large amounts of liquid before going to bed or out in public. Avoid or reduce how much caffeine or alcohol you drink. Give yourself time when you urinate. Keep all follow-up visits as told by your health care provider. This is important. Contact a health care provider if: You have unexplained back pain. Your symptoms do not get better with treatment. You develop side effects from the medicine you are taking. Your urine becomes very dark or has a bad smell. Your lower abdomen becomes distended and you have trouble passing your urine. Get help right away if: You have a fever or chills. You suddenly cannot urinate. You feel lightheaded, or very dizzy, or you faint. There are large amounts of blood or clots in the urine. Your urinary problems become hard to manage. You develop moderate to severe low back or flank pain. The flank is the side of your body between the ribs and the hip. These symptoms may represent a serious problem that is an emergency. Do not wait to see if the symptoms will go away. Get medical help right away. Call your local emergency services (911 in the [place] Do not drive yourself to the hospital. Summary Benign prostatic hyperplasia (BPH) is an enlarged prostate that is caused by the normal aging process and not by cancer. An enlarged prostate can press on the urethra. This can make it hard to pass urine. This condition is part of a normal aging process and is more likely to develop in men over the age of 50 years. Get help right away if you suddenly cannot urinate. This information is not intended to replace advice given to you by your health care provider. Make sure you discuss any questions you have with your health care provider. Document Released: 08/19/2006 Document Revised: 07/14/2019 Document Reviewed: 09/23/2017 [employer] Patient Education 2020 Speek. Follow Up Care 03/20/2021 12:02:10 With:Nanci GALICIA MD, URL Address: [address] [place] [address]- When:Within 1 Year(s) [facility] Evaluation + Plan note Future Appointments Appointment Date:04/08/2023 11:15:00 AM Scheduled Provider:Nanci GALICIA MD Location:[facility] Appointment Type:URO Office Visit Diagnostic Tests PendingPSA Total 12/31/22 [facility] Evaluation + Plan note Future Appointments Appointment Date:05/15/2023 11:20:00 AM Scheduled Provider: Location:[facility] Appointment Type:FM Lab Draw [facility] Evaluation + Plan note Future Appointments Appointment Date:07/05/2023 10:15:00 AM Scheduled Provider:Nanci GALICIA MD Location:[facility] Appointment Type:URO Office Visit [facility] Evaluation + Plan note Future Appointments Appointment Date:07/06/2024 10:30:00 AM Scheduled Provider:Nanci GALICIA MD Location:[facility] Appointment Type:URO Office Visit Future Scheduled TestsPSA Screen, Total 06/02/24 [facility] Evaluation + Plan note Future Appointments Appointment Date:10/18/2023 02:00:00 PM Scheduled Provider:Alvaro CRAIG, Denia Leonard [facility] Appointment Type:Cardiology New Patient (FT) Appointment Date:12/30/2023 02:00:00 PM Scheduled Provider: Location:[facility] Appointment Type: Medicare Wellness Subsequent Appointment Date:07/06/2024 10:30:00 AM Scheduled Provider:Nanci GALICIA MD Location:[facility] Appointment Type:URO Office Visit Future Scheduled TestsPSA Screen, Total 06/02/[address] [facility] Evaluation + Plan note Future Appointments Appointment Date:10/18/2023 02:00:00 PM Scheduled Provider:Denia Villa MD Location:[facility] Appointment Type:Cardiology New Patient (FT) Appointment Date:12/30/2023 02:00:00 PM Scheduled Provider: Location:[facility] Appointment Type: Medicare Wellness Subsequent Appointment Date:07/06/2024 10:30:00 AM Scheduled Provider:Nanci GALICIA MD Location:[facility] Appointment Type:URO Office Visit Diagnostic Tests [id number] 10/14/23 Future Scheduled TestsPSA Screen, Total 06/02/[address] [facility] Evaluation + Plan note Future Appointments Appointment Date:12/13/2023 01:15:00 PM Scheduled Provider:Denia Villa MD Location:[facility] Appointment Type:Cardiology Follow Up (FT) Appointment Date:12/30/2023 02:00:00 PM Scheduled Provider: Location:[facility] Appointment Type: Medicare Wellness Subsequent Appointment Date:07/06/2024 10:30:00 AM Scheduled Provider:Nanci GALICIA MD [facility] Type:URO Office Visit Future Scheduled TestsPSA Screen, Total 06/02/24NM Myocardial Spect Rest/Stress 1 Day 10/18/23Echo Transthoracic Complete 10/18/[address] [facility] Evaluation + Plan note Future Appointments Appointment Date:12/30/2023 02:00:00 PM Scheduled Provider: [facility] Type: Medicare Wellness Subsequent Appointment Date:07/06/2024 10:30:00 AM Scheduled Provider:Nanci GALICIA MD [facility] Appointment Type:URO Office Visit Future Scheduled TestsPSA Screen, Total 06/02/24Basic Metabolic Panel 4/26/24Comprehensive Metabolic Panel 12/27/23NM Myocardial Spect Rest/Stress 1 Day 10/18/23Echo Transthoracic Complete 10/18/[address] [facility] Evaluation + Plan note Future Appointments Appointment Date:02/04/2024 02:20:00 PM Scheduled Provider:Gordo CHAPA MD Location:[facility] Appointment Type:GS New 30 Appointment Date:07/06/2024 10:30:00 AM Scheduled Provider:Nanci GALICIA MD [facility] App[facility] Type:URO Office Visit Appointment Date:01/04/2025 01:00:00 PM Scheduled Provider: Location:[facility] Appointment Type: Medicare Wellness Subsequent Future Scheduled TestsPSA Screen, Total 06/02/24NM Myocardial Spect Rest/Stress 1 Day 10/18/23Echo Transthoracic Complete 10/18/[address] [facility] Evaluation + Plan note Future Appointments Appointment Date:07/06/2024 10:30:00 AM Scheduled Provider:Nanci GALICIA MD Location:[facility] Appointment Type:URO Office Visit Appointment Date:01/04/2025 01:00:00 PM Scheduled Provider: Location:[facility] Appointment Type: Medicare Wellness Subsequent Future Scheduled TestsPSA Screen, Total 06/02/24NM Myocardial Spect Rest/Stress 1 Day 10/18/23Echo Transthoracic Complete 10/18/23 [facility] Evaluation + Plan note Future Appointments Appointment Date:07/09/2024 11:30:00 AM Scheduled Provider: Location:[facility] Appointment Type:Chronic Care Dietary Appointment Date:08/04/2024 01:00:00 PM Scheduled Provider:Renee Renae [facility] Type:FM Open Appointment Date:01/04/2025 01:00:00 PM Scheduled Provider: Location:[facility] Appointment Type: Medicare Wellness Subsequent Future Scheduled TestsPSA Screen, Total 06/02/24NM Myocardial Spect Rest/Stress 1 Day 10/18/23Echo Transthoracic Complete 10/18/23 [facility] Evaluation note No assessment inform ation available [facility] Work Phone: Hospital course Narrative No data available for this section [facility] Hospital Discharge instructions No data available for this section [facility] Progress note No data available for this section [facility] Summary Purpose Family History No Family History Records FoundNo Family History Records FoundNo Family History Records FoundNo Family History Records Found No data available for this section No data available for this section No data available for this section No data available for this section No Family History Records FoundNo Family History Records Found No data available for this section No data available for this section No Family History Records FoundNo Family History Records Found No data available for this section No Family History Records Found No data available for this section No Family History Records Found No data available for this section No Family History Records Found Advance Directives No Advanced Directives Records FoundLatest Code Status on File Code Status Date Activated Date Inactivated Comments Full Code 08/21/2017 9:38 AM 08/21/2017 11:55 AM Code Status History Code Status Date Activated Date Inactivated Comments Full Code 08/21/2017 7:50 AM 08/21/2017 9:38 AM Full Code 08/12/2017 9:31 AM 08/12/2017 1:14 PM Hospital Course Note Patient: HALLIE VILLASENOR Age: 68 years Sex: MALE : 1950 Associated Diagnoses: None Author: Les Linda DO Results Review General results Today's results 08/02/2019 13:51 EST Respiratory Rate 16 br/min SpO2 93 % 08/02/2019 13:50 EST SpO2 95 % WBC 7.6 HGB 10.7 Health Status Allergies: Allergic Reactions (Selected) No known allergies Problem list (past medical history): All Problems (Selected) Arrhythmia / SNOMED CT 3982238263 / Confirmed Coronary artery disease / SNOMED CT 13034617 / Confirmed Diabetes / SNOMED CT 992696754 / Confirmed Hyperlipidemia / SNOMED CT 96140530 / Confirmed Neuropathy / SNOMED CT 4602314044 / Confirmed Histories Procedure history: Stented coronary artery ([id number]). Appendectomy ([id number]). Cataract surgery ([id number]). Comments: 07/06/2019 13:39 EST - Cesar RN, Edna james/gautam eyes Physical Examination VS/Measurements Vital Signs 08/02/2019 13:51 EST Respiratory Rate 16 br/min SpO2 93 % 08/02/2019 13:50 E (more content not included)... Note [facility] Clinical Discharge Summary PERSON INFORMATION Name BRAXTON VILLASENOR Age 68 Years 1950 Sex MALE Language Burundian PCP JOAQUÍN BURNS Marital Status Single Med Service Ambulatory Surgery Acct# Arrival 07/31/2019 07:03:57 Visit Reason SURGERY - LEFT TOTAL HIP Acuity LOS Address: [address] [place] [address] Comment: PROVIDER INFORMATION VITALS INFORMATION Vital Sign Triage Latest Temp Oral Temp Temporal Temp Intravascular Temp Axillary Temp Rectal 02 Sat 100 % 93 % Respiratory Rate Peripheral Pulse Rate Apical Heart Rate Blood Pressure / 82 mmHg / 74 mmHg Comment: MEDICAL INFORMATION Allergy Info: No known allergies Prescriptions Given: amiodarone (amiodarone 200 mg oral tablet) 1 tab(s) Oral every day. amLODIPine (amLODIPine 10 mg oral tablet) 1 tab(s) Oral every day. apixaban (Eliquis 5 mg oral tablet) 1 tab(s) Oral 2 times a day. aspirin (aspirin 81 mg oral tablet) 1 tab(s) Oral every day. atorvastatin (atorvas (more content not included)... Note Patient: HALLIE VILLASENOR Age: 68 years Sex: MALE : 1950 Associated Diagnoses: None Author: Cl Romero DO Postoperative Information Post Operative Note: Post Anesthesia Care Unit. Review / Management Condition: Stable. Assessment Anesthetic outcome No anesthetic complications noted. Plan Transfer/ Discharge: Patient can be discharged from PACU when criteria met. Condition good. [Electronically Signed on: 07/31/2019 14:13 EST] Cl Romero DO [Verified on: 07/31/2019 14:13 EST] Cl Romero DO Procedure Findings Note Patient: HALLIE VILLASENOR Age: 68 years Sex: MALE : 1950 Associated Diagnoses: None Author: Cl Romero DO Postoperative Information Post Operative Note: Post Anesthesia Care Unit. Review / Management Condition: Stable. Assessment Anesthetic outcome No anesthetic complications noted. Plan Transfer/ Discharge: Patient can be discharged from PACU when criteria met. Condition good. [Electronically Signed on: 07/31/2019 14:13 EST] Cl Romero DO [Verified on: 07/31/2019 14:13 EST] Cl Romero DO Additional Source Comments (unrecognized sect ion and content) No Status Records FoundNo Status Records FoundNo Status Records FoundNo Status Records FoundNo Status Records FoundNo Status Records FoundNo Status Records FoundNo Status Records FoundNo Status Records FoundNo Status Records FoundNo Status Records Found INFORMATION SOURCE (unrecogn ized section and content) DATE CREATED AUTHOR 02/25/2018 [facility] DATE CREATED AUTHOR AUTHOR'S ORGANIZ ATION 09/16/2019 [facility] DATE CREATED AUTHOR AUTHOR'S ORGANIZ ATION 07/10/2022 [facility] DATE CREATED AUTHOR AUTHOR'S ORGANIZ ATION 12/11/2022 [facility] DATE CREATED AUTHOR AUTHOR'S ORGANIZ ATION 11/13/2023 [facility] DATE CREATED AUTHOR AUTHOR'S ORGANIZ ATION 12/15/2023 [facility] DATE CREATED AUTHOR AUTHOR'S ORGANIZ ATION 01/18/2024 [facility] DATE CREATED AUTHOR AUTHOR'S ORGANIZ ATION 04/30/2024 [facility] DATE CREATED AUTHOR AUTHOR'S ORGANIZ ATION 07/07/2024 [facility] DATE CREATED AUTHOR AUTHOR'S ORGANIZ ATION 07/19/2024 [facility] Care Team (unrecognized sect ion and content) Team Status: Inactive Member Role Status Dates Scott Lowe DO Attending Provider Active Probate Paralegal Relationship Specialty Start Date End Date Joaquín Burns [address] [place] [address] PCP - General 08/07/17 Probate Paralegal Relationship Specialty Start Date End Date Joaquín uBrns [address] [place] [address] PCP - General 08/07/17 Goals (unrecognized section and content) Goals may be documented in a n alternate section Reason for Visit (unrecogniz ed section and content) Specialty Diagnoses / Procedures Referred By Contac t Referred To Contact Diagnoses Atherosclerosis of [place] coronary artery of [place] heart without angina pectoris Procedures Nuclear stress test with myocardial perfusion [facility] MYOCARDIAL SPECT MULTIPLE STUDIES Denia Villa MD [address] [place] [address] Joaquín Burns [address] [phone] Referral ID Status Reason Start Date Expiration Date V isits Requested Visits Authorized [id number] Not Required - RTA 11/27/2023 11/26/2024 6 6 FOR RECORDS PERTAINING TO PATIENTS WHO ARE OR HAVE BEEN ENROLLED IN A CHEMICAL DEPENDENCY/SUBSTANCEABUSE PROGRAM, SOME INFORMATION MAY BE OMITTED. This clinical summary was aggregated from multiple sources. Caution should be exercised in using it in the provision of clinical care. This summary normalizes information from multiple sources, and as a consequence, information in this document may materially change the coding, format and clinical context of patient data. In addition, data may be omitted in some cases. CLINICAL DECISIONS SHOULD BE BASED ON THE PRIMARY CLINICAL RECORDS. The [employer] [facility]. provides no warranty or guarantee of the accuracy or completeness of information in this document.
[2024-07-23 16:14] LABS: Basophils Percent Auto 0.4 % (0.2-2.0); Eosinophils Absolute Auto 0.1 10^3/uL (0.0-0.7); Eosinophils Percent Auto 2.5 % (0.9-7.0); Hemoglobin 13.5 g/dL (14.0-18.0); Immature Granulocytes Abs Auto 0.02 10^3/uL (0.00-0.03); Immature Granulocytes Pct Auto 0.4 % (0.0-0.5); Lymphocytes Absolute Auto 0.9 10^3/uL (1.2-3.8); Lymphocytes Percent Auto 18.2 % (20.5-60.0); Mean Corpuscular HGB Conc 34.6 g/dL (29.9-35.2); Mean Corpuscular Volume 86.7 fL (80.0-94.0); Mean Platelet Volume 9.9 fL (9.5-13.5); Monocytes Absolute Auto 0.5 10^3/uL (0.3-0.8); Monocytes Percent Auto 8.8 % (1.7-12.0); Neutrophils Absolute Auto 3.6 10^3/uL (1.4-6.5); Neutrophils Percent Auto 69.7 % (43.0-75.0); Platelet Count 249 10^3/uL (150-450); Red Cell Distribution Width 13.9 % (11.0-15.0); White Blood Count 5.1 10^3/uL (4.0-11.0)
[2024-07-23 16:37] LABS: Alanine Aminotransferase 26 U/L (16-63); Albumin Globulin Ratio 1.1; Albumin Level 3.6 g/dL (3.4-5.0); Alkaline Phosphatase 63 U/L (46-116); Anion Gap 12.2; Aspartate Amino Transferase 16 U/L (15-37); BUN Creatinine Ratio 14.5; Bilirubin Total 1.3 mg/dL (0.2-1.0); Calcium 8.9 mg/dL (8.5-10.1); Carbon Dioxide 31.8 mmol/L (21.0-32.0); Chloride 107 mmol/L (98-107); Estimated GFR (African America >60 (>=60 mL/min/1.73m^2); Estimated GFR (Non-African Ame 54 (>=60 mL/min/1.73m^2); Globulin 3.4 g/dL; Glucose 134 mg/dL (74-106); Sodium 147 mmol/L (136-145)
--- NOTE | 2024-07-23 16:37 | PC.NURSE ---
1620 - pt able to have small bowel movement at this time. dr stroud informed
--- NOTE | 2024-07-23 17:49 | ED_ITS ---
HPI HPI - General Adult General Chief complaint: Abdominal Pain Stated complaint: Constipation Time Seen by Provider: 07/23/24 15:37 Source: patient Mode of arrival: Wheelchair Limitations: no limitations History of Present Illness HPI narrative: Patient presents to ED complaining of abdominal pain and constipation. He states he has chronic issues with constipation. He said everything he tries at home makes him sick including MiraLAX and Colace and enemas. Patient states he has been to the hospital before for this issue and usually needs cleaned out. He has had a colonoscopy here about a year ago and according to the report he was not cleaned out enough for them to really get a good look. No known history of GI cancer, mild diverticulosis on the colonoscopy as far as they can tell. Patient states he has not had any fevers or vomiting but does have pain and he feels like he needs to get to the bathroom but he said he cannot really get anything out. He is tearful at times and says he really cannot eat anything because everything he eats just tends to bind him up. He is alert and oriented. Denies blood in the stool. Related Data Home Medications ?Medication ?Instructions ?Recorded ?Confirmed apixaban 5 mg tablet (Eliquis) 5 mg PO Q12H 03/02/24 07/23/24 atorvastatin 40 mg tablet 40 mg PO DAILY 03/02/24 07/23/24 gabapentin 100 mg capsule 100 mg PO Q8H 03/02/24 07/23/24 lisinopril 2.5 mg tablet 2.5 mg PO DAILY 03/02/24 07/23/24 metoprolol succinate 50 mg 50 mg PO DAILY 03/02/24 07/23/24 tablet,extended release 24 hr Allergies Allergy/AdvReac Type Severity Reaction Status Date / Time No Known Drug Allergies Allergy Verified 07/23/24 15:35 Opioid HPI Opioid Management Most Recent Opioid Data: No Data to Display Review of Systems ROS Status of ROS 10 or more systems reviewed and unremark able except as noted in history and below [facility] Medical History (Updated 07/23/24 @ 17:43 by Viki Taylor DO) Hydronephrosis ?N13.30 - Unspecified hydronephrosis (ICD-10) Kidney stones ?N20.0 - Calculus of kidney (ICD-10) COPD (chronic obstructive pulmonary disease) ?J44.9 - Chronic obstructive pulmonary disease, unspecified (ICD-10) Emphysema lung ?J43.9 - Emphysema, unspecified (ICD-10) Myocardial infarction ?I21.9 - Acute myocardial infarction, unspecified (ICD-10) Diabetes ?E11.9 - Type 2 diabetes mellitus without complications (ICD-10) Nocturia ?R35.1 - Nocturia (ICD-10) Limited mobility ?Z74.09 - Other reduced mobility (ICD-10) Hypertension ?I10 - Essential (primary) hypertension (ICD-10) Hyperlipidemia ?E78.5 - Hyperlipidemia, unspecified (ICD-10) Glucosuria ?R81 - Glycosuria (ICD-10) Difficulty walking ?R26.2 - Difficulty in walking, not elsewhere classified (ICD-10) Decreased mobility ?R26.89 - Other abnormalities of gait and mobility (ICD-10) Cardiomyopathy ?I42.9 - Cardiomyopathy, unspecified (ICD-10) BPH with obstruction/lower urinary tract symptoms ?N40.1 - Benign prostatic hyperplasia with lower urinary tract symptoms (ICD- 10) ?N13.8 - Other obstructive and reflux uropathy (ICD-10) Atrial fibrillation ?I48.91 - Unspecified atrial fibrillation (ICD-10) Anticoagulated ?Z79.01 - care home (current) use of anticoagulants (ICD-10) Surgical History (Updated 03/02/24 @ 13:41 by Jocelyn Bishop NP) S/P total hip arthroplasty ?Z96.649 - Presence of unspecified artificial hip joint (ICD-10) H/O cataract extraction ?Z98.49 - Cataract extraction status, unspecified eye (ICD-10) History of cardiac catheterization ?Z98.890 - Other specified postprocedural states (ICD-10) H/O removal of cyst ?Z98.890 - Other specified postprocedural states (ICD-10) Social History (Updated 03/11/24 @ 09:02 by Miranda Sanchez) Within the past year, how often did you have a drink containing alcohol: never Score interpretation: A score less than 4 is consistent with normal alcohol consumption. Smoking status: Former smoker Non-prescribed substance use: denies use Previous occupational history: RETIRED Highest level of school completed/degree received: 7th grade Little interest or pleasure in doing things: not at all Feeling down, depressed, or hopeless: not at all Exam Narrative Exam Narrative: Time Seen: [] Vital Signs: [Per nurse's notes.] General: [Alert] Skin: [Warm, dry, no rash.] Head: [Normocephalic, atraumatic.] Neck: [Supple, trachea midline.] Eye: [Pupils are equal, round and reactive to light, extraocular movements are intact, normal conjunctiva.] Ears, nose, mouth and throat: oral mucosa moist. Cardiovascular: [Regular rate and rhythm, no murmur.] Respiratory: [Lungs are clear to auscultation, respirations are non-labored, breath sounds are equal.] Chest wall: [No tenderness, no deformity.] Gastrointestinal: [Soft, mild generalized tenderness no guarding no rebound no peritoneal signs, non distended, normal bowel sounds.] MSK: 5 out of 5 muscle strength x 4 extremities no calf pain or edema Lymphatics: [No lymphadenopathy.] Psychiatric: [Cooperative, appropriate mood & affect.] Neurological: [Alert and oriented to person, place, time, and situation, no focal neurological deficit observed.] Constitutional Vital Signs, click to edit/add: Last Vital Signs Temp 97.4 F L 07/23/24 15:28 Pulse 88 07/23/24 15:28 Resp 20 07/23/24 15:28 BP 151/98 H 07/23/24 15:28 Pulse Ox 95 07/23/24 15:37 O2 Del Method Nasal Cannula 07/23/24 15:37 Course Vital Signs Vital signs: Vital Signs Temperature 97.4 F L 07/23/24 15:28 Pulse Rate 88 07/23/24 15:28 Respiratory Rate 20 07/23/24 15:28 Blood Pressure 151/98 H 07/23/24 15:28 Pulse Oximetry 95 07/23/24 15:28 Oxygen Delivery Method Room Air 07/23/24 15:28 Temperature 97.4 F L 07/23/24 15:28 Pulse Rate 88 07/23/24 15:28 Respiratory Rate 20 07/23/24 15:28 Blood Pressure 151/98 H 07/23/24 15:28 Pulse Oximetry 95 07/23/24 15:37 Oxygen Delivery Method Nasal Cannula 07/23/24 15:37 Medical Decision Making MDM Narrative Medical decision making narrative: Patient had some mild relief after enema. He had a few bowel movements throughout his stay here. CT scan does not show any bowel obstruction or evidence of specific mass. Vital signs are stable labs are nonacute. Patient is to follow-up with family doctor. He states he has an appointment in [place] for a GI doctor for another colonoscopy sometime soon but it was unclear exactly when. Return to ED if worsening symptoms, vomiting fevers pain or any further concerns. I told him to take a stool softener at home but he says everything he takes makes him sick so I did not prescribe anything additional today. I counseled him on dietary changes and drinking water to help with his constipation. He expresses understanding and is comfortable with care plan for home. Differential Diagnosis Differential Diagnosis: Constipation, bowel obstruction, colon mass Lab Data Lab results reviewed: Yes I reviewed the patient's lab results Labs: Lab Results 07/23/24 Range/Units 16:03 WBC 5.1 (4.0-11.0) 10^3/uL RBC 4.50 L (4.70-6.10) 10^6/uL Hgb 13.5 L (14.0-18.0) g/dL Hct 39.0 L (42.0-54.0) % MCV 86.7 (80.0-94.0) fL MCH 30.0 (25.9-34.0) pg MCHC 34.6 (29.9-35.2) g/dL RDW 13.9 (11.0-15.0) % Plt Count 249 (150-450) 10^3/uL MPV 9.9 (9.5-13.5) fL Neut % (Auto) 69.7 (43.0-75.0) % Lymph % (Auto) 18.2 L (20.5-60.0) % Powell % (Auto) 8.8 (1.7-12.0) % Eos % (Auto) 2.5 (0.9-7.0) % Baso % (Auto) 0.4 (0.2-2.0) % Neut # (Auto) 3.6 (1.4-6.5) 10^3/uL Lymph # (Auto) 0.9 L (1.2-3.8) 10^3/uL Powell # (Auto) 0.5 (0.3-0.8) 10^3/uL Eos # (Auto) 0.1 (0.0-0.7) 10^3/uL Baso # (Auto) 0.0 (0.0-0.1) 10^3/uL Abs Immat Gran (auto) 0.02 (0.00-0.03) 10^3/uL Imm/Tot Granulo (auto) 0.4 (0.0-0.5) % Sodium 147 H (136-145) mmol/L Potassium 4.0 (3.5-5.1) mmol/L Chloride 107 (98-107) mmol/L Carbon Dioxide 31.8 (21.0-32.0) mmol/L Anion Gap 12.2 BUN 19.0 H (7.0-18.0) mg/dL Creatinine 1.31 H (0.70-1.30) mg/dL Est GFR ( Amer) >60 (>=60 mL/min/1.73m^2) Est GFR (Non-Af Amer) 54 L (>=60 mL/min/1.73m^2) BUN/Creatinine Ratio 14.5 Glucose 134 H (74-106) mg/dL Calcium 8.9 (8.5-10.1) mg/dL Total Bilirubin 1.3 H (0.2-1.0) mg/dL AST 16 (15-37) U/L ALT 26 (16-63) U/L Alkaline Phosphatase 63 (46-116) U/L Total Protein 7.0 (6.4-8.2) g/dL Albumin 3.6 (3.4-5.0) g/dL Globulin 3.4 g/dL Albumin/Globulin Ratio 1.[address] scan - abdomen: Radiologist's impression: ITS Impressions Abdomen/Pelvis CT 07/23/24 15:55 IMPRESSION: No bowel obstruction. No free air. No free fluid. Constipation. Diverticulosis. No diverticulitis. Correlation with any known colonoscopy results Changes of old healed granulomatous disease. Hepatic steatosis Electronically authenticated by: KIM WILBURN Date: 07/23/2024 17:30 Discharge Plan Discharge Chief Complaint: Abdominal Pain Clinical Impression: Constipation Patient Disposition: Home, Self-Care Time of Disposition Decision: 17:43 Condition: Good Mode of Transportation: Private Vehicle Prescriptions / Home Meds: No Action Eliquis 5 mg tablet 5 mg PO Q12H atorvastatin 40 mg tablet 40 mg PO DAILY gabapentin 100 mg capsule 100 mg PO Q8H lisinopril 2.5 mg tablet 2.5 mg PO DAILY metoprolol succinate 50 mg tablet extended release 24 hr 50 mg PO DAILY Print Language: Salvadorean Instructions: Constipation (ED) Referrals: REEMA COYLE [Primary Care Provider] - 1 week Procedures ED Procedure Instructions Procedures Procedures: Rectal exam performed. Patient does not have any fecal impaction. Enema was performed by nurse and myself and patient was able to have some bowel movement.
== END 2024-07-23 18:20 | disposition home or self-care (01) ==
PROVIDERS: Emergency Provider Emergency Medicine; PCP Nurse Practitioner
DX: K59.00 Constipation, unspecified (principal); R10.9 Unspecified abdominal pain; K57.30 Diverticulosis of large intestine without perforation or abscess without bleeding
CPT/HCPCS: 36415; 74177; 80053; 85025; 99285; Q9967

== ENCOUNTER 2024-08-28 08:14 | Emergency (ER) | payer MEDICARE, SELFPAY ==
[2024-08-28 08:17] VITALS: BP 156/91; PULSE 79; TEMP 36.6; O2SAT 99; BMI 34.4
--- NOTE | 2024-08-28 08:27 | ED_ITS ---
HPI - Anxiety General Chief Complaint: Abdominal Pain Stated Complaint: STUFFED NOSE Time Seen by Provider: 08/28/24 08:21 Source: patient Mode of arrival: walk-in Limitations: no limitations Related Data Home Medications ?Medication ?Instructions ?Recorded ?Confirmed apixaban 5 mg tablet (Eliquis) 5 mg PO Q12H 03/02/24 07/23/24 atorvastatin 40 mg tablet 40 mg PO DAILY 03/02/24 07/23/24 gabapentin 100 mg capsule 100 mg PO Q8H 03/02/24 07/23/24 lisinopril 2.5 mg tablet 2.5 mg PO DAILY 03/02/24 07/23/24 metoprolol succinate 50 mg 50 mg PO DAILY 03/02/24 07/23/24 tablet,extended release 24 hr Allergies Allergy/AdvReac Type Severity Reaction Status Date / Time No Known Drug Allergies Allergy Verified 07/23/24 15:35 [facility] Medical History (Updated 07/23/24 @ 17:43 by Viki Taylor DO) Hydronephrosis ?N13.30 - Unspecified hydronephrosis (ICD-10) Kidney stones ?N20.0 - Calculus of kidney (ICD-10) COPD (chronic obstructive pulmonary disease) ?J44.9 - Chronic obstructive pulmonary disease, unspecified (ICD-10) Emphysema lung ?J43.9 - Emphysema, unspecified (ICD-10) Myocardial infarction ?I21.9 - Acute myocardial infarction, unspecified (ICD-10) Diabetes ?E11.9 - Type 2 diabetes mellitus without complications (ICD-10) Nocturia ?R35.1 - Nocturia (ICD-10) Limited mobility ?Z74.09 - Other reduced mobility (ICD-10) Hypertension ?I10 - Essential (primary) hypertension (ICD-10) Hyperlipidemia ?E78.5 - Hyperlipidemia, unspecified (ICD-10) Glucosuria ?R81 - Glycosuria (ICD-10) Difficulty walking ?R26.2 - Difficulty in walking, not elsewhere classified (ICD-10) Decreased mobility ?R26.89 - Other abnormalities of gait and mobility (ICD-10) Cardiomyopathy ?I42.9 - Cardiomyopathy, unspecified (ICD-10) BPH with obstruction/lower urinary tract symptoms ?N40.1 - Benign prostatic hyperplasia with lower urinary tract symptoms (ICD- 10) ?N13.8 - Other obstructive and reflux uropathy (ICD-10) Atrial fibrillation ?I48.91 - Unspecified atrial fibrillation (ICD-10) Anticoagulated ?Z79.01 - [employer] customer service (current) use of anticoagulants (ICD-10) Surgical History (Updated 03/02/24 @ 13:41 by Jocelyn Bishop NP) S/P total hip arthroplasty ?Z96.649 - Presence of unspecified artificial hip joint (ICD-10) H/O cataract extraction ?Z98.49 - Cataract extraction status, unspecified eye (ICD-10) History of cardiac catheterization ?Z98.890 - Other specified postprocedural states (ICD-10) H/O removal of cyst ?Z98.890 - Other specified postprocedural states (ICD-10) Social History (Updated 03/11/24 @ 09:02 by Miranda Sanchez) Within the past year, how often did you have a drink containing alcohol: never Score interpretation: A score less than 4 is consistent with normal alcohol consumption. Smoking status: Former smoker Non-prescribed substance use: denies use Previous occupational history: RETIRED Highest level of school completed/degree received: 7th grade Little interest or pleasure in doing things: not at all Feeling down, depressed, or hopeless: not at all Exam Constitutional Vital Signs, click to edit/add: Last Vital Signs Temp 97.8 F 08/28/24 08:17 Pulse 79 08/28/24 08:17 Resp 18 08/28/24 08:17 BP 156/91 H 08/28/24 08:17 Pulse Ox 99 08/28/24 08:17 O2 Del Method Room Air 08/28/24 08:17 Course Vital Signs Vital signs: Vital Signs Temperature 97.8 F 08/28/24 08:17 Pulse Rate 79 08/28/24 08:17 Respiratory Rate 18 08/28/24 08:17 Blood Pressure 156/91 H 08/28/24 08:17 Pulse Oximetry 99 08/28/24 08:17 Oxygen Delivery Method Room Air 08/28/24 08:17 Temperature 97.8 F 08/28/24 08:17 Pulse Rate 79 08/28/24 08:17 Respiratory Rate 18 08/28/24 08:17 Blood Pressure 156/91 H 08/28/24 08:17 Pulse Oximetry 99 08/28/24 08:17 Oxygen Delivery Method Room Air 08/28/24 08:17 Discharge Plan Discharge Chief Complaint: Abdominal Pain Prescriptions / Home Meds: No Action Eliquis 5 mg tablet 5 mg PO Q12H atorvastatin 40 mg tablet 40 mg PO DAILY gabapentin 100 mg capsule 100 mg PO Q8H lisinopril 2.5 mg tablet 2.5 mg PO DAILY metoprolol succinate 50 mg tablet extended release 24 hr 50 mg PO DAILY Print Language: Tajik Referrals: REEMA COYLE [Primary Care Provider] - 1 week
--- NOTE | 2024-08-28 08:42 | ED.GENADUL1 ---
HPI HPI - General Adult General Chief complaint: Abdominal Pain Stated complaint: STUFFED NOSE Time Seen by Provider: 08/28/24 08:21 Source: patient Mode of arrival: walk-in Limitations: no limitations History of Present Illness HPI narrative: The patient presented to us with a stool concerned of being constipation. He stopped taking his on MiraLAX and he mentioned he just want to get enema like the last time he was here in July when he had that Patient is planned to have a colonoscopy done next month in [place] Patient have no abdominal pain no nausea no vomiting he has been eating with no difficulty and his last bowel movement was few days ago He mentioned that he stopped taking his medication because is not working Related Data Home Medications ?Medication ?Instructions ?Recorded ?Confirmed apixaban 5 mg tablet (Eliquis) 5 mg PO Q12H 03/02/24 07/23/24 atorvastatin 40 mg tablet 40 mg PO DAILY 03/02/24 07/23/24 gabapentin 100 mg capsule 100 mg PO Q8H 03/02/24 07/23/24 lisinopril 2.5 mg tablet 2.5 mg PO DAILY 03/02/24 07/23/24 metoprolol succinate 50 mg 50 mg PO DAILY 03/02/24 07/23/24 tablet,extended release 24 hr Allergies Allergy/AdvReac Type Severity Reaction Status Date / Time No Known Drug Allergies Allergy Verified 07/23/24 15:35 Opioid HPI Opioid Management Most Recent Opioid Data: No Data to Display Review of Systems ROS Status of ROS 10 or more systems reviewed and unremarkable except as noted in history and below [facility] Medical History (Updated 08/28/24 @ 08:45 by Beatriz Jean-Baptiste MD) Hydronephrosis ?N13.30 - Unspecified hydronephrosis (ICD-10) Kidney stones ?N20.0 - Calculus of kidney (ICD-10) COPD (chronic obstructive pulmonary disease) ?J44.9 - Chronic obstructive pulmonary disease, unspecified (ICD-10) Emphysema lung ?J43.9 - Emphysema, unspecified (ICD-10) Myocardial infarction ?I21.9 - Acute myocardial infarction, unspecified (ICD-10) Diabetes ?E11.9 - Type 2 diabetes mellitus without complications (ICD-10) Nocturia ?R35.1 - Nocturia (ICD-10) Limited mobility ?Z74.09 - Other reduced mobility (ICD-10) Hypertension ?I10 - Essential (primary) hypertension (ICD-10) Hyperlipidemia ?E78.5 - Hyperlipidemia, unspecified (ICD-10) Glucosuria ?R81 - Glycosuria (ICD-10) Difficulty walking ?R26.2 - Difficulty in walking, not elsewhere classified (ICD-10) Decreased mobility ?R26.89 - Other abnormalities of gait and mobility (ICD-10) Cardiomyopathy ?I42.9 - Cardiomyopathy, unspecified (ICD-10) BPH with obstruction/lower urinary tract symptoms ?N40.1 - Benign prostatic hyperplasia with lower urinary tract symptoms (ICD-10) ?N13.8 - Other obstructive and reflux uropathy (ICD-10) Atrial fibrillation ?I48.91 - Unspecified atrial fibrillation (ICD-10) 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 (ICD-10) Surgical History (Updated 03/02/24 @ 13:41 by Jocelyn Bishop NP) S/P total hip arthroplasty ?Z96.649 - Presence of unspecified artificial hip joint (ICD-10) H/O cataract extraction ?Z98.49 - Cataract extraction status, unspecified eye (ICD-10) History of cardiac catheterization ?Z98.890 - Other specified postprocedural states (ICD-10) H/O removal of cyst ?Z98.890 - Other specified postprocedural states (ICD-10) Social History (Updated 03/11/24 @ 09:02 by Miranda Sanchez) Within the past year, how often did you have a drink containing alcohol: never Score interpretation: A score less than 4 is consistent with normal alcohol consumption. Smoking status: Former smoker Non-prescribed substance use: denies use Previous occupational history: RETIRED Highest level of school completed/degree received: 7th grade Little interest or pleasure in doing things: not at all Feeling down, depressed, or hopeless: not at all Exam Narrative Exam Narrative: Nurses notes and vital signs reviewed and patient is not hypoxic. General: Well-appearing and in no apparent distress. Skin: Warm, dry, no pallor noted. No rash. Head: Normocephalic, atraumatic. Neck: Supple, non-tender. Eye: Pupils are equal, round and EOMI. No scleral icterus. Ears, Nose, Mouth, and Throat: TM are clear, no nasal mucosal hypertrophy. Oral mucosa is moist, no posterior oropharynx erythema, uvula is mid-line Cardiovascular: Regular Rate and Rhythm without murmur, gallop or rub. Respiratory: No accessory muscle use or respiratory distress. Lungs are clear to auscultation, no wheezing, rales or rhonchi Chest Wall: no tenderness Back: No midline thoracic or lumbar vertebral tenderness. No CVA tenderness Musculoskeletal: normal ROM, no calf or popliteal tenderness, no lower extremity edema/swelling GI: Abdomen is soft, mild distention no tenderness,. Normal bowel sounds. No masses appreciated. No tenderness to palpation. No rebound, guarding, or rigidity noted. Neurological: A&O x4. No cranial nerve dysfunction observed. No truncal ataxia. Moves all extremities. Sensation intact. Psychiatric: Cooperative and interactive. Normal mood and affect. Constitutional Vital Signs, click to edit/add: Last Vital Signs Temp 97.8 F 08/28/24 08:17 Pulse 79 08/28/24 08:17 Resp 18 08/28/24 08:17 BP 156/91 H 08/28/24 08:17 Pulse Ox 99 08/28/24 08:17 O2 Del Method Room Air 08/28/24 08:17 Course Vital Signs Vital signs: Vital Signs Temperature 97.8 F 08/28/24 08:17 Pulse Rate 79 08/28/24 08:17 Respiratory Rate 18 08/28/24 08:17 Blood Pressure 156/91 H 08/28/24 08:17 Pulse Oximetry 99 08/28/24 08:17 Oxygen Delivery Method Room Air 08/28/24 08:17 Temperature 97.8 F 08/28/24 08:17 Pulse Rate 79 08/28/24 08:17 Respiratory Rate 18 08/28/24 08:17 Blood Pressure 156/91 H 08/28/24 08:17 Pulse Oximetry 99 08/28/24 08:17 Oxygen Delivery Method Room Air 08/28/24 08:17 Medical Decision Making MDM Narrative Medical decision making narrative: The patient had no fecal impaction and he actually had soft stool with the enema placement he was able to go to the bathroom The patient also provided negative citrate to help with with his symptoms and he will drink that at home No alarming symptoms in case of any nausea vomiting or any pain the patient will come back to the ER The patient is to follow up with primary care physician in next 2-3 days or to return to the emergency department should any of the signs or symptoms worsen or new symptoms develop. The patient agrees with the following Diagnosis and Treatment plan and the patient will be discharged home. Discharge Plan Discharge Chief Complaint: Abdominal Pain Clinical Impression: Constipation Patient Disposition: Home, Self-Care Time of Disposition Decision: 08:45 Condition: Good Prescriptions / Home Meds: No Action Eliquis 5 mg tablet 5 mg PO Q12H atorvastatin 40 mg tablet 40 mg PO DAILY gabapentin 100 mg capsule 100 mg PO Q8H lisinopril 2.5 mg tablet 2.5 mg PO DAILY metoprolol succinate 50 mg tablet extended release 24 hr 50 mg PO DAILY Print Language: Arabic Instructions: Constipation (DC) Referrals: REEMA COYLE [Primary Care Provider] - 1 week
[2024-08-28 09:01] VITALS: O2SAT 98
[2024-08-28] MEDS: MAGNESIUM CITRATE 296 ML SOLUTION PO (09:01)
== END 2024-08-28 09:03 | disposition home or self-care (01) ==
PROVIDERS: Emergency Provider Emergency Medicine; PCP Nurse Practitioner
DX: K59.00 Constipation, unspecified (principal); Z87.891 Personal history of nicotine dependence
CPT/HCPCS: 99283

== ENCOUNTER 2024-09-10 09:59 | Outpatient (OUT) | payer MEDICARE, MEDICAID, SELFPAY ==
[2024-09-10 10:38] LABS: Basophils Percent Auto 0.4 % (0.2-2.0); Eosinophils Absolute Auto 0.3 10^3/uL (0.0-0.7); Eosinophils Percent Auto 3.5 % (0.9-7.0); Hematocrit 42.6 % (42.0-54.0); Hemoglobin 14.5 g/dL (14.0-18.0); Immature Granulocytes Abs Auto 0.02 10^3/uL (0.00-0.03); Immature Granulocytes Pct Auto 0.3 % (0.0-0.5); Lymphocytes Absolute Auto 1.6 10^3/uL (1.2-3.8); Lymphocytes Percent Auto 20.9 % (20.5-60.0); Mean Corpuscular Hemoglobin 29.2 pg (25.9-34.0); Mean Corpuscular Volume 85.7 fL (80.0-94.0); Monocytes Absolute Auto 0.4 10^3/uL (0.3-0.8); Monocytes Percent Auto 5.6 % (1.7-12.0); Neutrophils Absolute Auto 5.3 10^3/uL (1.4-6.5); Neutrophils Percent Auto 69.3 % (43.0-75.0); Platelet Count 260 10^3/uL (150-450); Red Blood Count 4.97 10^6/uL (4.70-6.10); Red Cell Distribution Width 13.4 % (11.0-15.0); White Blood Count 7.7 10^3/uL (4.0-11.0)
== END 2024-09-10 10:00 | disposition home or self-care (01) ==
LOC: LAB 10:01
PROVIDERS: PCP Nurse Practitioner
DX: R10.84 Generalized abdominal pain (principal)
CPT/HCPCS: 36415; 83690; 85025